=== PATIENT | female | born 1990 | race Two or more races ===

== ENCOUNTER 2020-09-09 12:20 | Outpatient (REF) | payer OTHER, SELFPAY ==
[2020-09-09 12:58] LABS: MANUAL DIFF FLAG NO
[2020-09-09 13:02] LABS: Basophils Absolute Auto 0.1 X10*3/uL (0.0-0.2); Basophils Percent Auto 1.2 % (0-2); Eosinophils Absolute Auto 0.3 X10*3/uL (0.0-0.4); Eosinophils Percent Auto 4.1 % (0-4); Hematocrit 38.8 % (37-47); Hemoglobin 12.4 g/dl (12.0-16.0); Imm Gran Abs Auto 0.02 X10*3/uL (0.00-0.03); Imm Gran Pct Auto 0.3 % (0.0-0.4); Lymphocytes Percent Auto 30.2 % (20-40); Mean Corpuscular Hemoglobin 26.7 pg (27.0-33.0); Mean Corpuscular Volume 83.4 fL (80-98); Mean Platelet Volume 10.6 fL (9.4-12.3); Monocytes Absolute Auto 0.6 X10*3/uL (0.1-1.2); Monocytes Percent Auto 8.4 % (2-11); Neutrophils Absolute Auto 3.8 X10*3/uL (2.0-8.3); Neutrophils Percent Auto 55.8 % (45-73); Platelet Count 309 X10*3/uL (160-400); Red Blood Count 4.65 X10*6/uL (4.20-5.50); Red Cell Distribution Width 13.2 % (11.0-16.0); White Blood Count 6.8 X10*3/uL (4.8-10.8)
[2020-09-09 13:22] LABS: Iron 26 mcg/dL (30-160); Percent Iron Saturation 8 % (15-50); Total Iron Binding Capacity 344 mcg/dL (228-428); Unsaturated Iron Binding 318 ug/dL
[2020-09-09 13:45] LABS: Ferritin 6 ng/mL (10-122)
== END 2020-09-09 12:21 | disposition home or self-care (01) ==
LOC: HO.LAB 12:20
PROVIDERS: Visit Provider Internal Medicine
DX: D50.9 Iron deficiency anemia, unspecified (principal)
CPT/HCPCS: 36415; 82728; 83540; 85025

== ENCOUNTER 2020-09-24 15:27 | Outpatient (REF) | payer OTHER, SELFPAY | END 2020-09-24 15:28 | disposition home or self-care (01) | LOC: HO.LAB 15:27 | PROVIDERS: Visit Provider Internal Medicine | DX: Z20.828 Contact with and (suspected) exposure to other viral communicable diseases (principal) | CPT/HCPCS: 36415; C9803; U0003 ==

== ENCOUNTER 2020-12-17 15:16 | Outpatient (REF) | payer OTHER, SELFPAY ==
[2020-12-18 11:56] LABS: BV Int Neg Control Negative (Negative); BV Int Pos Control Positive (Positive)
== END 2020-12-17 15:17 | disposition home or self-care (01) ==
LOC: HO.LAB 15:16
PROVIDERS: PCP Internal Medicine; Visit Provider Advanced Practice Midwife
DX: N89.8 Other specified noninflammatory disorders of vagina (principal)
CPT/HCPCS: 87480; 87510; 87660

== ENCOUNTER → 2020-12-17 15:24 | Outpatient (BNVA) | payer OTHER, SELFPAY | PROVIDERS: PCP Internal Medicine; Visit Provider Advanced Practice Midwife | DX: Z01.419 Encounter for gynecological examination (general) (routine) without abnormal findings (principal); N89.8 Other specified noninflammatory disorders of vagina | CPT/HCPCS: 81003 ==

== ENCOUNTER 2020-12-18 08:24 | Outpatient (REF) | payer OTHER, SELFPAY ==
[2020-12-18 09:12] LABS: MANUAL DIFF FLAG NO
[2020-12-18 09:16] LABS: Basophils Absolute Auto 0.1 X10*3/uL (0.0-0.2); Basophils Percent Auto 1.2 % (0-2); Eosinophils Absolute Auto 0.3 X10*3/uL (0.0-0.4); Hematocrit 40.4 % (37-47); Hemoglobin 12.5 g/dl (12.0-16.0); Imm Gran Abs Auto 0.02 X10*3/uL (0.00-0.03); Imm Gran Pct Auto 0.3 % (0.0-0.4); Lymphocytes Absolute Auto 2.4 X10*3/uL (1.2-4.9); Lymphocytes Percent Auto 33.1 % (20-40); Mean Corpuscular HGB Conc 30.9 g/dl (31.0-35.0); Mean Corpuscular Hemoglobin 25.3 pg (27.0-33.0); Mean Corpuscular Volume 81.8 fL (80-98); Mean Platelet Volume 10.5 fL (9.4-12.3); Monocytes Absolute Auto 0.7 X10*3/uL (0.1-1.2); Monocytes Percent Auto 9.1 % (2-11); Neutrophils Absolute Auto 3.8 X10*3/uL (2.0-8.3); Neutrophils Percent Auto 52.3 % (45-73); Platelet Count 378 X10*3/uL (160-400); Red Blood Count 4.94 X10*6/uL (4.20-5.50); Red Cell Distribution Width 13.2 % (11.0-16.0); White Blood Count 7.2 X10*3/uL (4.8-10.8)
[2020-12-18 09:48] LABS: Alanine Aminotransferase 16 U/L (0-31); Albumin Level 4.4 g/dL (3.5-5.0); Alkaline Phosphatase 63 U/L (39-117); Anion Gap 10 (12-20); Aspartate Amino Transferase 16 U/L (5-31); Bilirubin Total 0.9 mg/dL (0.0-1.0); Blood Urea Nitrogen 16 mg/dL (9-16); Calcium 9.5 mg/dL (8.4-10.2); Carbon Dioxide 28 mmol/L (22-29); Chloride 105 mmol/L (96-108); Estimated Glomerular Filt Rate > 60; Glucose Fasting 92 mg/dL (60-99); Potassium 4.8 mmol/L (3.3-5.1); Sodium 138 mmol/L (135-145); Total Protein 7.4 g/dL (6.5-8.0)
[2020-12-18 09:57] LABS: Thyroid Stimulating Hormone 1.31 uIU/mL (0.32-4.0)
[2020-12-23 08:32] LABS: Vitamin D 25-OH, D2 <4 ng/mL; Vitamin D 25-OH, D3 21 ng/mL; Vitamin D 25-OH, Total 21 ng/mL (30-100)
== END 2020-12-18 08:25 | disposition home or self-care (01) ==
LOC: HO.LAB 08:24
PROVIDERS: PCP Internal Medicine; Visit Provider Internal Medicine
DX: D64.9 Anemia, unspecified (principal); R53.82 Chronic fatigue, unspecified; E55.9 Vitamin D deficiency, unspecified
CPT/HCPCS: 36415; 80053; 82306; 84443; 85025

== ENCOUNTER 2021-01-07 07:50 | Outpatient (REF) | payer OTHER, SELFPAY ==
--- NOTE | ~2021-01-07 | XR_ITS ---
EXAMINATION: XR LUMBOSACRAL SPINE CLINICAL INFORMATION: M25.50 - Pain in unspecified joint COMPARISON: 04/06/2020 TECHNIQUE: AP and lateral views of the lumbar spine and lateral view of the lumbosacral junction. FINDINGS: The vertebral bodies and posterior elements are normal. The disc spaces are preserved and the vertebral alignment is normal. The paraspinal soft tissues are normal. XR/XR lumbar spine 2-3V IMPRESSION: Normal lumbar spine radiographs.
[2021-01-07 09:46] LABS: Thyroid Stimulating Hormone 1.46 uIU/mL (0.32-4.0)
[2021-01-11 17:41] LABS: Vitamin D 25-OH, D2 <4 ng/mL; Vitamin D 25-OH, D3 23 ng/mL; Vitamin D 25-OH, Total 23 ng/mL (30-100)
[2021-01-12 14:28] LABS: Anti Nuclear Antibody Screen NEGATIVE (NEGATIVE)
== END 2021-01-07 07:51 | disposition home or self-care (01) ==
LOC: HO.LAB 07:50
PROVIDERS: PCP Internal Medicine; Referring Provider Internal Medicine; Visit Provider Student in an Organized Health Care Education/Training Program
DX: M25.50 Pain in unspecified joint (principal)
CPT/HCPCS: 36415; 72100; 82306; 84443; 86038; 86039

== ENCOUNTER 2021-02-16 15:11 | Outpatient (REF) | payer OTHER, SELFPAY ==
[2021-02-17 08:43] LABS: BV Int Neg Control Negative (Negative); BV Int Pos Control Positive (Positive)
[2021-02-17 09:09] LABS: CT PCR NOT DETECTED (Not Detect.); NG PCR NOT DETECTED (Not Detect.)
== END 2021-02-16 15:12 | disposition home or self-care (01) ==
LOC: HO.LAB 15:11
PROVIDERS: PCP Internal Medicine; Visit Provider Obstetrics & Gynecology
DX: R35.0 Frequency of micturition (principal); N76.0 Acute vaginitis; B96.89 Other specified bacterial agents as the cause of diseases classified elsewhere
CPT/HCPCS: 81003; 87086; 87480; 87491; 87510; 87591; 87660

== ENCOUNTER 2021-11-08 07:49 | Outpatient (REF) | payer OTHER, SELFPAY ==
[2021-11-08 08:15] LABS: MANUAL DIFF FLAG NO
[2021-11-08 08:25] LABS: Basophils Absolute Auto 0.1 X10*3/uL (0.0-0.2); Basophils Percent Auto 0.8 % (0-2); Eosinophils Absolute Auto 0.2 X10*3/uL (0.0-0.4); Hematocrit 36.4 % (37.0-47.0); Hemoglobin 11.4 g/dl (12.0-16.0); Imm Gran Abs Auto 0.02 X10*3/uL (0.00-0.03); Imm Gran Pct Auto 0.3 % (0.0-0.4); Lymphocytes Absolute Auto 2.3 X10*3/uL (1.2-4.9); Lymphocytes Percent Auto 35.4 % (20-40); Mean Corpuscular HGB Conc 31.3 g/dl (31.0-35.0); Mean Corpuscular Hemoglobin 24.1 pg (27.0-33.0); Monocytes Absolute Auto 0.7 X10*3/uL (0.1-1.2); Monocytes Percent Auto 10.8 % (2-11); Neutrophils Absolute Auto 3.2 x10*3/uL (2.0-8.3); Neutrophils Percent Auto 49.7 % (45-73); Platelet Count 337 X10*3/uL (160-400); Red Blood Count 4.73 X10*6/uL (4.20-5.50); Red Cell Distribution Width 14.8 % (11.0-16.0); White Blood Count 6.4 X10*3/uL (4.8-10.8)
[2021-11-08 08:35] LABS: Estimated Average Glucose 94 mg/dL; Hemoglobin A1c % 4.9 %
[2021-11-08 08:41] LABS: Alanine Aminotransferase 9 U/L (0-31); Albumin Level 4.2 g/dL (3.5-5.0); Alkaline Phosphatase 62 U/L (39-117); Anion Gap 11 (12-20); Aspartate Amino Transferase 13 U/L (5-31); Bilirubin Total 0.3 mg/dL (0.0-1.0); Blood Urea Nitrogen 14 mg/dL (9-16); Calcium 9.2 mg/dL (8.4-10.2); Carbon Dioxide 25 mmol/L (22-29); Chloride 107 mmol/L (96-108); Cholesterol 171 mg/dL; Estimated Glomerular Filt Rate > 60; Glucose Fasting 101 mg/dL (60-99); HDL Cholesterol 58 mg/dL; LDL Cholesterol Calculated 103 mg/dl; Potassium 4.1 mmol/L (3.3-5.1); Sodium 139 mmol/L (135-145); Total Protein 7.1 g/dL (6.5-8.0); Triglycerides 52 mg/dL
== END 2021-11-08 07:50 | disposition home or self-care (01) ==
LOC: HO.LAB 07:49
PROVIDERS: PCP Internal Medicine; Visit Provider Nurse Practitioner Acute Care
DX: G44.229 Chronic tension-type headache, not intractable (principal)
CPT/HCPCS: 36415; 80053; 80061; 83036; 84443; 85025

== ENCOUNTER 2022-01-13 16:00 | Outpatient (RCR) | payer OTHER, SELFPAY | END 2022-01-18 10:52 | disposition home or self-care (01) | LOC: HO.PT 16:00 | PROVIDERS: PCP Internal Medicine; Visit Provider Nurse Practitioner Acute Care | DX: G44.229 Chronic tension-type headache, not intractable (principal) | CPT/HCPCS: 97014; 97110; 97140; 97161; 97530 ==

== ENCOUNTER 2022-02-21 07:26 | Outpatient (REF) | payer OTHER, SELFPAY ==
--- NOTE | ~2022-02-21 | XR_ITS ---
EXAMINATION: XR HIP, LEFT XR HIP, RIGHT CLINICAL INFORMATION: Pain COMPARISON: None TECHNIQUE: 2 views of each hip FINDINGS: Left hip: No fracture or dislocation. The hip is well aligned. Joint spaces maintained. The visualized pelvis is intact. Right hip: No fracture or dislocation. The hip is well aligned. Joint spaces maintained. The visualized pelvis is intact. XR/XR hip LT min 2V IMPRESSION: Normal appearance of both hips.
--- NOTE | ~2022-02-21 | XR_ITS ---
EXAMINATION: XR HIP, LEFT XR HIP, RIGHT CLINICAL INFORMATION: Pain COMPARISON: None TECHNIQUE: 2 views of each hip FINDINGS: Left hip: No fracture or dislocation. The hip is well aligned. Joint spaces maintained. The visualized pelvis is intact. Right hip: No fracture or dislocation. The hip is well aligned. Joint spaces maintained. The visualized pelvis is intact. XR/XR hip RT min 2V IMPRESSION: Normal appearance of both hips.
--- NOTE | ~2022-02-21 | XR_ITS ---
EXAMINATION: XR LUMBOSACRAL SPINE CLINICAL INFORMATION: Lower back pain COMPARISON: 01/07/2021 TECHNIQUE: Three views of the lumbosacral spine. FINDINGS: The vertebral bodies and posterior elements are normal. The disc spaces are preserved and the vertebral alignment is normal. The sacroiliac joints are symmetric. The sacrum is intact. Normal bowel gas pattern. The paraspinal soft tissues are normal. XR/XR lumbar spine 2-3V IMPRESSION: Normal appearance of the lumbar spine.
== END 2022-02-21 07:27 | disposition home or self-care (01) ==
LOC: HO.XRAY 07:26
PROVIDERS: PCP Internal Medicine; Visit Provider Internal Medicine
DX: M54.50 Low back pain, unspecified (principal); M25.551 Pain in right hip; M25.552 Pain in left hip
CPT/HCPCS: 72100; 73502

== ENCOUNTER 2022-03-15 07:43 | Outpatient (REF) | payer OTHER, SELFPAY ==
--- NOTE | ~2022-03-15 | XR_ITS ---
EXAMINATION: XR CHEST CLINICAL INFORMATION: R06.00 - Dyspnea, unspecified COMPARISON: Chest radiographs 04/06/2020 TECHNIQUE: 2 views of the chest were obtained. FINDINGS: Lungs are clear. There is no pneumothorax, pleural reaction, airspace consolidation, groundglass opacity. Heart is normal in size. The costophrenic sulci are clear. The hilar and mediastinal contours and visualized bony structures are unremarkable. XR/XR chest 2V IMPRESSION: Unremarkable examination.
--- NOTE | 2022-03-15 07:48 | ECG_ITS ---
Test Reason : cp Blood Pressure : / mmHG Vent. Rate : 082 BPM Atrial Rate : 082 BPM P-R Int : 128 ms QRS Dur : 084 ms QT Int : 400 ms P-R-T Axes : 077 064 039 degrees QTc Int : 467 ms Normal sinus rhythm Normal ECG When compared with ECG of 18-OCT-2007 23:09, No significant change was found Referred By: Rosalie Yoder Electronically Signed By:JUAN NUNN
== END 2022-03-15 07:44 | disposition home or self-care (01) ==
LOC: HO.XRAY 07:43
PROVIDERS: PCP Internal Medicine; Visit Provider Internal Medicine
DX: R07.9 Chest pain, unspecified (principal); R06.00 Dyspnea, unspecified
CPT/HCPCS: 71046; 93005

== ENCOUNTER 2022-03-25 08:07 | Outpatient (REF) | payer OTHER, SELFPAY ==
[2022-03-25 08:49] LABS: COVID-19 Test Negative (Negative); IDNOW Serial# 16C4AD1C
== END 2022-03-25 08:08 | disposition home or self-care (01) ==
LOC: HO.LAB 08:07
PROVIDERS: PCP Internal Medicine; Visit Provider Internal Medicine
DX: Z20.822 Contact with and (suspected) exposure to COVID-19 (principal)
CPT/HCPCS: 87635; C9803

== ENCOUNTER 2022-03-29 13:40 | Outpatient (REF) | payer OTHER, SELFPAY ==
--- NOTE | ~2022-03-29 | XR_ITS ---
EXAMINATION: XR SINUSES CLINICAL INFORMATION: J32.9 - Chronic sinusitis, unspecified. Patient notes sinus pressure, congestion, headaches. COMPARISON: Chest radiographs 03/15/2022 TECHNIQUE: 4 views of the sinuses were obtained. FINDINGS: There is mild smooth mucosal thickening bilateral inferior lateral maxillary sinuses. No visible polypoid mass. The remainder the sinuses are clear. There are no air-fluid levels. No bony thickening or sclerosis or visible bony destructive process. The nasopharynx and adenoids contours are unremarkable on lateral view. XR/XR sinus min 3V IMPRESSION: -Smooth mild bilateral mucosal thickening inferior lateral maxillary sinuses. -Remainder of sinuses are clear. -No air-fluid levels.
== END 2022-03-29 13:41 | disposition home or self-care (01) ==
LOC: HO.XRAY 13:40
PROVIDERS: PCP Internal Medicine; Visit Provider Internal Medicine
DX: J32.9 Chronic sinusitis, unspecified (principal)
CPT/HCPCS: 70220

== ENCOUNTER 2022-09-24 09:29 | Outpatient (REF) | payer OTHER, SELFPAY ==
[2022-09-24 09:54] LABS: MANUAL DIFF FLAG NO
[2022-09-24 10:01] LABS: Basophils Absolute Auto 0.1 X10*3/uL (0.0-0.2); Basophils Percent Auto 0.8 % (0-2); Eosinophils Absolute Auto 0.1 X10*3/uL (0.0-0.4); Eosinophils Percent Auto 2.1 % (0-4); Hematocrit 44.6 % (37.0-47.0); Imm Gran Abs Auto 0.04 X10*3/uL (0.00-0.03); Imm Gran Pct Auto 0.6 % (0.0-0.4); Lymphocytes Absolute Auto 1.9 X10*3/uL (1.2-4.9); Lymphocytes Percent Auto 29.8 % (20-40); Mean Corpuscular HGB Conc 33.6 g/dl (31.0-35.0); Mean Corpuscular Hemoglobin 29.8 pg (27.0-33.0); Mean Corpuscular Volume 88.5 fL (80.0-98.0); Mean Platelet Volume 9.8 fL (9.4-12.3); Monocytes Absolute Auto 0.6 X10*3/uL (0.1-1.2); Monocytes Percent Auto 9.2 % (2-11); Neutrophils Absolute Auto 3.6 x10*3/uL (2.0-8.3); Neutrophils Percent Auto 57.5 % (45-73); Platelet Count 298 X10*3/uL (160-400); Red Blood Count 5.04 X10*6/uL (4.20-5.50); Red Cell Distribution Width 11.9 % (11.0-16.0); White Blood Count 6.3 X10*3/uL (4.8-10.8)
[2022-09-24 10:34] LABS: Alanine Aminotransferase 20 U/L (0-31); Albumin Level 4.2 g/dL (3.5-5.0); Alkaline Phosphatase 63 U/L (39-117); Anion Gap 10 (12-20); Aspartate Amino Transferase 18 U/L (5-31); Bilirubin Total 0.5 mg/dL (0.0-1.0); Blood Urea Nitrogen 13 mg/dL (9-16); Calcium 9.7 mg/dL (8.4-10.2); Carbon Dioxide 26 mmol/L (22-29); Chloride 110 mmol/L (96-108); Cholesterol 161 mg/dL; Estimated Glomerular Filt Rate 55; Glucose Fasting 97 mg/dL (60-99); HDL Cholesterol 48 mg/dL; Iron 104 mcg/dL (30-160); LDL Cholesterol Calculated 103 mg/dl; Percent Iron Saturation 41 % (15-50); Potassium 4.3 mmol/L (3.3-5.1); Sodium 142 mmol/L (135-145); Total Iron Binding Capacity 253 mcg/dL (228-428); Triglycerides 52 mg/dL; Unsaturated Iron Binding 149 ug/dL
[2022-09-24 10:50] LABS: Vitamin D 25-OH Total 52.8 ng/mL (>30)
== END 2022-09-24 09:30 | disposition home or self-care (01) ==
LOC: HO.LAB 09:29
PROVIDERS: Visit Provider Internal Medicine
DX: Z00.00 Encounter for general adult medical examination without abnormal findings (principal); E55.9 Vitamin D deficiency, unspecified; D64.9 Anemia, unspecified; E78.5 Hyperlipidemia, unspecified
CPT/HCPCS: 36415; 80053; 80061; 82306; 83540; 85025

== ENCOUNTER 2022-10-03 11:00 | Outpatient (RCR) | payer OTHER, SELFPAY ==
--- NOTE | 2022-02-24 18:27 | MHC.PT.EP ---
[facility] [place] [facility] [place] Office [place] Office [address] Tawana Jack [address] [phone] F: [phone] F: [phone] F: [phone] F: [phone] Physical Therapy Plan of Care Date of Evaluation: Date of Surgery: N/A Diagnosis: Assessment: pt presents to physical therapy with pain, decreased range of motion, decreased strength, impaired functional mobility, impaired postural awareness, and gait deviations. pt is a good candidate for skilled PT due to age, potential remediation of impairments, typical disease/condition progression and prognosis, comorbidities, and motivation. pt would benefit from tailored strengthening and stretching exercise program, functional training, gait training, postural re-training, neuromuscular re-education, modalities as needed for pain, equipment safety demonstration. Frequency and Duration: The patient will be seen 1x/wk for 4 wks Short Term Goals: pt will be I w/ HEP to promote self-management of condition. pt will demo proper sitting posture w/ lumbar roll to promote neutral spine w/ seated ADLs. Landscape Foreman Goals: pt will report a statistically significant improvement in self-reported outcome measure, Casimiro, to promote return to PLOF. pt will demo proper lifting mechanics x5 reps of 25# from floor to chest height to promote return to airplane fueler. Treatment Plan: Modalities to reduce pain, spasms and effusion. Manual therapy to restore motion and function. Therapeutic exercise to improve strength and flexibility. Neuromuscular re-education for posture and balance. Therapeutic activities to return to functional activities of daily living. Electronically signed by: Paula Leiva PT, DPT Please sign and return to therapist. Thank you for your referral.
--- NOTE | 2022-10-18 14:05 | MHC.PT.DC ---
[facility] [place] Office [place] Office [place] Office [address] Tawana Jack [address] [phone] F: [phone] F: [phone] F: [phone] F: [phone] Physical Therapy Discharge Report Diagnosis: low back pain, unspecified Date of Surgery: N/A Date of Evaluation: 02/24/22 Date of Discharge: 10/18/22 Treatments to Date: 22 Cancellations to Date: 5 No Shows to Date: 0 Discharge Status: Improved Function Independent with HEP Discharge Summary: The patient went through periods of adequate symptom management and flare-ups. She was educated extensively on how to train whether she is feeling minimal pain or when her pain is exacerbated. She has been given several home exercise programs and educated on modalities such as heat. The patient was educated on potential diet and lifestyle modifications to reduce inflammation and promote stability. She has reached her insurance maximum for this plan of care and is being discharged. Electronically signed by: Paula Leiva PT, DPT Please sign and return to therapist. Thank you for your referral.
== END 2022-10-18 14:06 | disposition home or self-care (01) ==
LOC: HO.PT 11:00
PROVIDERS: PCP Internal Medicine; Visit Provider Internal Medicine
DX: M54.50 Low back pain, unspecified (principal)
CPT/HCPCS: 97110; 97140; 97162; 97164; 97530

== ENCOUNTER → 2023-02-17 10:21 | Outpatient (BNVA) | payer OTHER, SELFPAY | PROVIDERS: PCP Internal Medicine; Visit Provider Student in an Organized Health Care Education/Training Program ==

== ENCOUNTER 2023-06-22 13:57 | Outpatient (AMB) | payer OTHER, SELFPAY ==
--- NOTE | 2023-06-22 14:15 | MHC.PC.OV ---
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 Allergies sertraline Adverse Reaction (Intermediate, Verified 06/22/23 14:17) nausea, loss of appetite Tobacco use date assessed: 06/22/23 Dental Screening Dental Screen Date: 06/22/23 Did you have a dental visit in the last 12 months?: Yes Did you have a dental problem in the last 6 months where you did not have access to dental care?: No Was dental information given to patient?: Patient has dentist HPI HPI Comments History of Present Illness Details This is a 31-year-old female with severe major depression, anxiety, allergic sinusitis and low vitamin-D that comes today for follow-up on her conditions. Patient Dr. Lowery presents today for problem visit. Patient continues to report ongoing polyarthralgia. Review of the notes patient has been seen by rheumatology and was diagnosed with fibromyalgia. Patient was encouraged to consider adding low-impact exercises such as walking, swimming, aquatherapy, yoga, stretching. Advised patient that she should start activity slowly and increase as tolerated. or consider switching her fluoxetine to duloxetine. Patient also reports she is having urinary frequency, dysuria. Denies fever, chills and flank pain. [facility] Medical History (Updated 06/22/23 @ 14:36 by JACK Montgomery) Lumbar pain Right hip pain Left hip pain Severe major depression without psychotic features Vaginal irritation Hypovitaminosis D Anemia Allergic sinusitis Chronic fatigue Anxiety Surgical History No pertinent past surgical history Family History Father Diabetes Hypertension CVD (cardiovascular disease) Stroke Mother No problems noted. 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 How often do you have a drink containing alcohol?: Monthly or less 2. How many drinks containing alcohol do you have on a typical day when you are drinking?: 1 or 2 3. How often do you have six or more drinks on one occasion?: Never Total Score: 1 Score Reviewed/Action Taken: Yes JOLIE-7 AMB Questionnaire JOLIE-7 Date JOLIE - 7 assessed: 09/29/22 Source: Developed by Drs. Carlos Ayala, Hellen Burrell, Omar Frankel and colleagues, with an educational bernice from [employer]. Review of Systems Const Denies chills, Denies fatigue, Denies fever(s) and Denies poor appetite Eyes Denies no additional complaints ENT Reports Normal hearing present Card Denies chest pain, Denies syncope, Denies rapid heart rate and Denies dyspnea Resp Denies cough and Denies dyspnea GI Denies change in stool character, Denies constipation, Denies diarrhea, Denies nausea and Denies vomiting Denies urinary frequency, Reports dysuria, Denies urinary hesitancy and Reports urinary urgency Neuro Reports Normal hearing present, Denies confusion and Denies syncope Psych Denies confusion Endo Denies fatigue Physical exam (Primary Care) Vital Signs: Last Vital Signs Pulse 85 06/22/23 14:16 BP 126/82 06/22/23 14:16 Pulse Ox 99 06/22/23 14:16 Oxygen Delivery Method Room Air 06/22/23 14:16 BMI result Body Mass Index 23.0 Tobacco/Smoking Status: Tobacco use Status Tobacco use date assessed 06/22/23 06/22/23 14:20 Patient Tobacco Use Status Never used Tobacco 06/22/23 14:20 e-Cigarette/Vaping Use Never Used 06/22/23 14:20 Thrive Assessment: Date of Thrive Assessment Date Thrive assessed 09/29/22 06/22/23 14:20 Const General: No confusion Orientation/consciousness: No confusion HENMT Head: Yes normocephalic and Yes atraumatic Eyes Conjunctivae: conjunctivae normal Chest Chest palpation & inspection: normal inspection of the chest Resp Effort & Inspection: normal respiratory effort Auscultation: clear to auscultation bilaterally, no crackles, no rhonchi and no wheezes Cardio Rate: regular rate Rhythm: regular rhythm Heart sounds: S1 normal heart sound present and S2 normal heart sound present GI Inspection: Yes normal to inspection Neuro General: No confusion Cranial nerves: Yes Normal hearing present Extrem General: No edema Assessment and Plan Assessment & Plan (1) Urinary frequency: Code(s): R35.0 - Frequency of micturition Plan: Urinalysis with reflex culture ordered. Given patient is experiencing dysuria and urinary frequency will cover with Macrobid q.12 x5 days will urine is pending. Patient agreeable with plan of care. (2) Fibromyalgia, primary: Code(s): M79.7 - Fibromyalgia Plan: Patient referred to Pain Management for further treatment recommendations for ongoing polyarthralgia. Plan Keep scheduled physical exam in September with PCP or follow-up sooner if needed. Orders: Orders Comprehensive [place]. Panel Fast 06/22/23 R35.0 - Frequency of micturition UA CC w/rflx Micro + Cult 06/22/23 R35.0 - Frequency of micturition Complete Blood Count no Diff 06/22/23 Z13.0 - Encounter for screening for diseases of the blood and blood-forming organs and certain disorders involving the immune mechanism Referrals Pain Management Referral M79.7 - Fibromyalgia Medications: New nitrofurantoin monohyd/m-cryst 100 mg (Macrobid) must administer with a meal/food 100 mg PO Q12H 5 days 10 caps 0RF Coding Level of Care Code Est Pt Level 3 (08123) Diagnoses Urinary frequency R35.0 Fibromyalgia, primary M79.7
[2023-06-22 14:16] VITALS: BP 126/82; PULSE 85; O2SAT 99; BMI 23.0
== END 2023-06-22 14:51 | disposition home or self-care (01) ==
PROVIDERS: PCP Internal Medicine; Visit Provider Nurse Practitioner Family
DX: R35.0 Frequency of micturition (principal); M79.7 Fibromyalgia
CPT/HCPCS: 99213

== ENCOUNTER 2023-06-22 14:44 | Outpatient (REF) | payer OTHER, SELFPAY | END 2023-06-22 14:45 | disposition home or self-care (01) | LOC: HO.LAB 14:44 | PROVIDERS: PCP Internal Medicine; Visit Provider Nurse Practitioner Family | DX: Z13.0 Encounter for screening for diseases of the blood and blood-forming organs and certain disorders involving the immune mechanism (principal); R35.0 Frequency of micturition | CPT/HCPCS: 36415; 81001; 85027; 87086 ==

== ENCOUNTER 2023-07-05 15:33 | Outpatient (AMB) | payer OTHER, SELFPAY ==
--- NOTE | 2023-07-05 15:47 | A.OFFVIS_ITS ---
Intake Vital Signs 07/05/23 15:59 Height 5 ft 3 in Weight 130 lb BMI 23.0 BP 139/78 Blood Pressure Location Lt brachial Position Sitting Respiration 16 Pulse 85 Pulse Source Pulse Oximeter Pulse Oximetry (%) 100 Oxygen Delivery Method Room Air Intake Visit Reasons: Fibromyalgia Allergies sertraline Adverse Reaction (Intermediate, Verified 07/05/23 15:48) nausea, loss of appetite HPI HPI Comments History of Present Illness Details Vale is a very pleasant 32-year-old female who presents to the office today for evaluation management of her chronic all-over pain. Patient reports that she has pain in the neck shoulders arms back hips knees legs feet. She is previously seen by Rheumatology and diagnosed with fibromyalgia. She is unable to pinpoint a specific area that is the most gela thersome pain. She states that she just has pain all over, that waxes and wanes and most bothersome will change area all the time. Patient currently only taking ibuprofen for the pain with minimal relief. She recently completed physical therapy for her neck and hip which helped a little bit. She does report using a tens unit at physical therapy with some relief. She has never tried chiropractor, acupuncture, massage or injections. She states rheumatology told her that medication would not help her pain. She currently is only taking clonazepam, hydroxyzine, Topamax and vitamin-D. She is on Topamax for migraines, she is a former patient of Neurology here at [facility]. She is requesting referral to [facility] neurology as she does not feel like her concerns are being addressed with current neurologist. She states she will run out of [employer] within a month. Patient does try to live a active and healthy lifestyle. She works out, she is looking into [facility] therapy but states sure it is not willing to cover at this time. She also is hesitant about taking medications as she does not like to put ?chemicals and my body . In terms of muscle damage condition is described as aching, tingling, exhausting. Pain is negatively impacting patient's enjoyment of life, general activity, mood, normal work correctional activities, sleep, walking, housework and physical work. [facility] Medical History (Updated 07/05/23 @ 16:45 by Maritza Sheridan, FILE SYSTEM INSTALLER, BARGE LOADER) Lumbar pain Right hip pain Left hip pain Severe major depression without psychotic features Vaginal irritation Hypovitaminosis D Anemia Allergic sinusitis Chronic fatigue Anxiety Surgical History No pertinent past surgical history Family History Father Diabetes Hypertension CVD (cardiovascular disease) Stroke Mother No problems noted. 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 Answers questions appropriately. Fully engaged in examination. Skin: warm, dry, intact HEENT: Normocephalic. Hearing intact. Cardiac: External chest normal in appearance. Respiratory: No cough, audible wheezing or stridor. Abdomen: without gross distension. MS: No obvious swelling or deformities. Able to transition from sit to stand unassisted. Ambulates with bilaterally normal heel strike and toe off CS: decreased ROM with right and left lateral flexion nontender to palpation over midline cervical vertebrae or paraspinal muscles Tender to palpation over right lower trapezius with palpable tight bands Neurological: Oriented to person, place, time and situation. Thought process intact. No gait abnormalities appreciated. Psychiatric: Appropriate mood and affect. Good judgment and insight. Assessment & Plan Assessment & Plan (1) Cervical spondylosis: Code(s): M47.812 - Spondylosis without myelopathy or radiculopathy, cervical region (2) Fibromyalgia, primary: Code(s): M79.7 - Fibromyalgia (3) Myofascial muscle pain: Code(s): M79.18 - Myalgia, other site Plan Vale presented to the office today for evaluation management of her chronic diffuse joint pain. Patient reports that she has been evaluated by Rheumatology in the past, she is aware of current management strategies for fibromyalgia including sleep hygiene, diet, exercise and is currently looking for aquatherapy. XR CS ordered for further evaluation. Lidocaine patches 5% apply to most painful area on for 12 hours off for 12 hours. Cyclobenzaprine 5 mg p.o. b.i.d. patient instructed on use. Will trial initially at bedtime to see how it is tolerated. Patient where not to drive while taking this medication. Refill of Topamax sent, referral placed for [facility] Neurology per patient request. Patient aware we will not continue prescribing Topamax, this is one time to get her until she is seen by Neurology. [employer] Tens unit ordered, pamphlet provided to patient with instructions on use. She will await a call to schedule delivery of the device. All questions and concerns were addressed during the visit today. Patient will follow-up in this office in 1 month for medication review, sooner if needed. Orders: Orders XR cervical spine w flex/ext Today M47.812 - Spondylosis without myelopathy or radiculopathy, cervical region Referrals Neurology Referral G43.909 - Migraine, unspecified, not intractable, without status migrainosus Medications: New lidocaine 5% leave on most painful area for up to 12 hrs 1 patch topical DAILY 30 ea 0RF topiramate 50 mg PO DAILY 30 tabs 1RF cyclobenzaprine 5 mg PO BID PRN 60 tabs 0RF muscle spasm Coding Level of Care Code New Pt Level 4 (06474) Diagnoses Cervical spondylosis M47.812 Fibromyalgia, primary M79.7 Myofascial muscle pain M79.18
[2023-07-05 15:59] VITALS: BP 139/78; PULSE 85; RESP 16; O2SAT 100; BMI 23.0
== END 2023-07-05 16:26 | disposition home or self-care (01) ==
PROVIDERS: PCP Internal Medicine; Visit Provider Registered Nurse Emergency
DX: M47.812 Spondylosis without myelopathy or radiculopathy, cervical region (principal); M79.7 Fibromyalgia
CPT/HCPCS: 99204

== ENCOUNTER → 2023-07-05 15:33 | Outpatient (BNVA) | payer OTHER, SELFPAY | PROVIDERS: PCP Internal Medicine; Visit Provider Registered Nurse Emergency ==

== ENCOUNTER 2023-08-08 16:07 | Outpatient (AMB) | payer OTHER, SELFPAY ==
[2023-08-08 16:14] VITALS: BP 137/72; PULSE 75; RESP 16; O2SAT 100; BMI 23.0
--- NOTE | 2023-08-08 16:14 | A.OFFVIS_ITS ---
Intake Vital Signs 08/08/23 16:14 Height 5 ft 3 in Weight 130 lb BMI 23.0 BP 137/72 Blood Pressure Location Lt brachial Position Sitting Respiration 16 Pulse 75 Pulse Source Pulse Oximeter Pulse Oximetry (%) 100 Oxygen Delivery Method Room Air Intake Visit Reasons: Fibromyalgia/Confirmed Allergies sertraline Adverse Reaction (Intermediate, Verified 08/08/23 16:13) nausea, loss of appetite HPI HPI Comments History of Present Illness Details Vale presents to the office today for follow up. She has been using the TENS unit with good effect. Not using it very often as she struggles to find the time and has some difficulty applying the leads to her upper back but does not good relief when she does use it. Lidocaine patches also noted to be difficult to apply so is not sure how effecti ve they are. She reports most days she is doing well with the occasional flare up. She did receive a call from [facility] [place], new patient appt pending. Prior: Vale is a very pleasant 32-year-old female who presents to the office today for evaluation management of her chronic all-over pain. Patient reports that she has pain in the neck shoulders arms back hips knees legs feet. She is previously seen by Rheumatology and diagnosed with fibromyalgia. She is unable to pinpoint a specific area that is the most bothersome pain. She states that she just has pain all over, that waxes and w anes and most bothersome will change area all the time. Patient currently only taking ibuprofen for the pain with minimal relief. She recently completed physical therapy for her neck and hip which helped a little bit. She does report using a tens unit at physical therapy with some relief. She has never tried chiropractor, acupuncture, massage or injections. She states rheumatology told her that medication would not help her pain. She currently is only taking clonazepam, hydroxyzine, Topamax and vitamin-D. She is on Topamax for migraines, she is a former patient of Neurology here at [facility]. She is requesting referral to [facility] neurology as she does not feel like her concerns are being addressed with current neurologist. She states she will run out of Topamax within a month. Patient does try to live a active and healthy lifestyle. She works out, she is looking into aqua therapy but states sure it is not willing to cover at this time. She also is hesitant about taking medications as she does not like to put ?chemicals and my body . In terms of muscle damage condition is described as aching, tingling, exhausting. Pain is negatively impacting patient's enjoyment of life, general activity, mood, normal work correctional activities, sleep, walking, housework and physical work. [facility] Medical History (Updated 07/05/23 @ 16:45 by Maritza Sheridan, ROLLED OATS MILL OPERATOR, LATHE OPERATOR CONTACT LENS) Lumbar pain Right hip pain Left hip pain Severe major depression without psychotic features Vaginal irritation Hypovitaminosis D Anemia Allergic sinusitis Chronic fatigue Anxiety Surgical History No pertinent past surgical history Family History Father Diabetes Hypertension CVD (cardiovascular disease) Stroke Mother No problems noted. 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 Answers questions appropriately. Fully engaged in examination. Skin: warm, dry, intact HEENT: Normocephalic. Hearing intact. Cardiac: External chest normal in appearance. Respiratory: No cough, audible wheezing or stridor. Abdomen: without gross distension. MS: No obvious swelling or deformities. Able to transition from sit to stand unassisted. Ambulates with bilaterally normal heel strike and toe off Neurological: Oriented to person, place, time and situation. Thought process intact. No gait abnormalities appreciated. Psychiatric: Appropriate mood and affect. Good judgment and insight. Assessment & Plan Assessment & Plan (1) Cervical spondylosis: Code(s): M47.812 - Spondylosis without myelopathy or radiculopathy, cervical region (2) Fibromyalgia, primary: Code(s): M79.7 - Fibromyalgia (3) Myofascial muscle pain: Code(s): M79.18 - Myalgia, other site Plan Vale presented to the office today for follow up. She is aware of current management strategies for fibromyalgia including sleep hygiene, diet, exercise and is currently looking for aquatherapy. She declines gabapentin or lyrica at this time, states she feels overall well just has some times when it acts up. C/W TENS unit as prescribed C/W lidocaine patches as needed Follow up with neurology as planned All questions and concerns were addressed during the visit today. Patient will follow-up in this office in 3 months, sooner if needed. Coding Level of Care Code Est Pt Level 4 (90740) Diagnoses Cervical spondylosis M47.812 Fibromyalgia, primary M79.7 Myofascial muscle pain M79.18
== END 2023-08-08 16:23 | disposition home or self-care (01) ==
PROVIDERS: PCP Internal Medicine; Visit Provider Registered Nurse Emergency
DX: M47.812 Spondylosis without myelopathy or radiculopathy, cervical region (principal); M79.18 Myalgia, other site
CPT/HCPCS: 99214

== ENCOUNTER → 2023-08-08 16:07 | Outpatient (BNVA) | payer OTHER, SELFPAY | PROVIDERS: PCP Internal Medicine; Visit Provider Registered Nurse Emergency ==

== ENCOUNTER 2023-10-04 10:02 | Outpatient (AMB) | payer OTHER, SELFPAY ==
--- NOTE | 2023-10-04 10:17 | A.OFFVIS_ITS ---
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 Doing well with concerns: started spotting-to light flow since 08/31/23-current, some mucus discharge and horrible odor . She reports always having irregular periods skipping at times, some facial acne. She tries to eat healthy and stays active with exercise. Currently is never been sexually active. She denies vaginal itching and irritation. Denies family history of breast, ovarian or colon cancer. Last pap smear 2017, negative. [facility] Medical History Lumbar pain Right hip pain Left hip pain Severe major depression without psychotic features Vaginal irritation Hypovitaminosis D Anemia Allergic sinusitis Chronic fatigue Anxiety Surgical History No pertinent past surgical history Family History Father Diabetes Hypertension CVD (cardiovascular disease) Stroke Mother No problems noted. 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/hazards: No Cognitive needs: No Hearing needs: No Vision needs: No Female Reproductive History Menstrual Age of Menarche: 12 Date of last menstrual period: 08/31/23 control method: none Total pregnancies: 0 Date of last pap smear: 05/23/18 (neg) Review of Systems Const All systems reviewed & are unremarkable except as noted in HPI and below Reports as per HPI Eyes Reports no additional complaints ENT Reports no additional complaints Card Reports no additional complaints Resp Reports no additional complaints GI Reports as per HPI and Reports no additional complaints Reports as per HPI Musc Reports no additional complaints Skin/Breast Reports as per HPI Neuro Reports no additional complaints Psych Reports no additional complaints Endo Reports no additional complaints Jeffrey/Lymph Reports no additional complaints Aller/Immun Reports no additional complaints Physical Exam Vital Signs: Last Vital Signs BP 130/68 10/04/23 10:19 BMI result Body Mass Index 23.4 Const General: cooperative, healthy appearing, no acute distress, well developed and alert Orientation/consciousness: patient oriented x3 HEENT Head: Yes normal to inspection Eyes General: appearance normal, both eyes and all related structures Neck Neck: Yes normal visual inspection Thyroid: Thyroid normal Chest Other: dark long areola hair Chest palpation & inspection: normal inspection of the chest and other (no puckering, dimpling, peau de orange, retraction, discharge, masses) Breast/axilla inspection: normal inspection of the breasts Breast/axilla palpation: normal palpation of the breasts Resp Effort & Inspection: normal respiratory effort GI Inspection: Yes normal to inspection Palpation (GI): Soft to palpation Rectal Exam - Female: deferred Other: Limited exam due to small introital opening. General: Yes bladder normal to palpation External Female Exam: normal external appearance and normal appearance of the urethra Speculum Exam - Vagina: normal appearance of the vagina, normal palpation, no rmal vaginal discharge and vaginal bleeding Speculum Exam - Cervix: normal appearance of the cervix and normal palpation Bimanual exam- vagina & uterus: normal bimanual exam, normal palpation, uterine size normal, bladder normal to palpation, normal palpation and non-tender Bimanual Exam- Adnexa, other: no masses OB/external & speculum: vaginal bleeding Skin General skin exam: no rashes or lesions noted Rashes: no rashes Neuro General: patient oriented x3 Cognition (Neuro): normal cognition Extrem General: Yes normal to inspection Psych Attitude: cooperative Thought process: Normal thought process present Assessment & Plan Assessment & Plan (1) Encounter for well woman exam with routine gynecological exam: Code(s): Z01.419 - Encounter for gynecological examination (general) (routine) without abnormal findings (2) Abnormal uterine bleeding (AUB): Code(s): N93.9 - Abnormal uterine and vaginal bleeding, unspecified (3) Acne: Code(s): L70.9 - Acne, unspecified Qualifiers: Acne type: unspecified acne Qualified Code(s): L70.9 - Acne, unspecified Plan Discussed: Current recommendations for pap smears per ASCCP guidelines. Breast awareness and periodic breast exams. Maintain a healthy lifestyle including a well balanced diet and routine exercise. Use condoms for STI and prevention. Workup for PCOS due to symptoms including labs and trans abdominal ultrasound. Advised to call if there is any heavy prolonged bleeding before her next appointment. Follow-up in 2 weeks after ultrasound and labs are complete for test results and plan of care, considering control measures in the future will be discussed in detail at next visit. All of her questions and concerns were addressed to the best of my ability. RTO in one year for annual carbonator examination. This note is constructed using voice recognition software. While every effort has been made to ensure accuracy, furniture cleaner errors may have been included. Orders: Orders Bacterial Vaginosis Panel Today L68.0 - Hirsutism, N92.6 - Irregular menstruation, unspecified, N93.9 - Abnormal uterine and vaginal bleeding, unspecified Pap Smear Today N93.9 - Abnormal uterine and vaginal bleeding, unspecified, Z01.419 - Encounter for gynecological examination (general) (routine) without abnormal findings US pelvic limited Today N93.9 - Abnormal uterine and vaginal bleeding, unspecified HCG Quantitative Today L68.0 - Hirsutism, N92.6 - Irregular menstruation, unspecified Thyroid Stimulating Hormone Today L68.0 - Hirsutism, N92.6 - Irregular menstruation, unspecified 17 Hydroxyprogesterone Today L68.0 - Hirsutism, N92.6 - Irregular menstruation, unspecified Prolactin Today L68.0 - Hirsutism, N92.6 - Irregular menstruation, unspecified CT NG by PCR Today L68.0 - Hirsutism, N92.6 - Irregular menstruation, unspecified, N93.9 - Abnormal uterine and vaginal bleeding, unspecified Testosterone, Free/Total Today L68.0 - Hirsutism, N92.6 - Irregular menstruation, unspecified DHEA Sulfate Today L68.0 - Hirsutism, N92.6 - Irregular menstruation, unspecified Complete Blood Count no Diff Today L68.0 - Hirsutism, N92.6 - Irregular menstruation, unspecified Coding Level of Care Code Est Pt Prev Care 18-39y(00914) Diagnoses Encounter for well woman exam with routine gynecological exam Z01.419 Abnormal uterine bleeding (AUB) N93.9 Acne, unspecified acne type L70.9 Acne type: unspecified acne
[2023-10-04 10:19] VITALS: BP 130/68; BMI 23.4
== END 2023-10-04 15:27 | disposition home or self-care (01) ==
PROVIDERS: PCP Internal Medicine; Visit Provider Advanced Practice Midwife
DX: Z01.419 Encounter for gynecological examination (general) (routine) without abnormal findings (principal); N93.9 Abnormal uterine and vaginal bleeding, unspecified; L70.9 Acne, unspecified
CPT/HCPCS: 99395

== ENCOUNTER 2023-10-04 10:02 | Outpatient (REF) | payer OTHER, SELFPAY ==
[2023-10-04 12:22] LABS: Hematocrit 38.5 % (37.0-47.0); Hemoglobin 12.4 g/dl (12.0-16.0); Mean Corpuscular HGB Conc 32.2 g/dl (31.0-35.0); Mean Corpuscular Volume 83.7 fL (80.0-98.0); Mean Platelet Volume 10.7 fL (9.4-12.3); Platelet Count 320 X10*3/uL (160-400); Red Cell Distribution Width 14.4 % (11.0-16.0); White Blood Count 7.6 X10*3/uL (4.8-10.8)
[2023-10-04 13:13] LABS: HCG Quantitative < 2 mIU/mL; Thyroid Stimulating Hormone 0.98 uIU/mL (0.32-4.0)
[2023-10-04 18:06] LABS: CT PCR NOT DETECTED (Not Detect.); NG PCR NOT DETECTED (Not Detect.)
[2023-10-05 09:53] LABS: BV Int Neg Control Negative (Negative); BV Int Pos Control Positive (Positive)
[2023-10-05 10:08] LABS: DHEA Sulfate 59 mcg/dL (19-237); Prolactin 13.5 ng/mL
[2023-10-08 15:28] LABS: Testosterone, Free 1.1 pg/mL (0.1-6.4); Testosterone, Total 22 ng/dL (2-45)
== END 2023-10-04 10:03 | disposition home or self-care (01) ==
LOC: HO.LAB 10:02
PROVIDERS: PCP Internal Medicine; Visit Provider Advanced Practice Midwife
DX: L68.0 Hirsutism (principal); N92.6 Irregular menstruation, unspecified; N93.9 Abnormal uterine and vaginal bleeding, unspecified; Z20.2 Contact with and (suspected) exposure to infections with a predominantly sexual mode of transmission; L70.9 Acne, unspecified
CPT/HCPCS: 0353U; 82627; 83498; 84146; 84402; 84403; 84443; 84702; 85027; 87480; 87510; 87660

== ENCOUNTER 2023-10-04 10:54 | Outpatient (REF) | payer OTHER, SELFPAY ==
[2023-10-07 04:49] LABS: HPV mRNA E6/E7 rflx Not Detected (Not Detected)
== END 2023-10-04 10:55 | disposition home or self-care (01) ==
LOC: HO.LNP 10:54
PROVIDERS: Visit Provider Advanced Practice Midwife
DX: Z01.419 Encounter for gynecological examination (general) (routine) without abnormal findings (principal); Z11.51 Encounter for screening for human papillomavirus (HPV); N93.9 Abnormal uterine and vaginal bleeding, unspecified
CPT/HCPCS: 87624; 88142

== ENCOUNTER 2023-10-10 14:26 | Outpatient (AMB) | payer OTHER, SELFPAY ==
[2023-10-10 14:37] VITALS: BP 120/80; BMI 23.4
--- NOTE | 2023-10-10 14:37 | A.OFFPC_ITS ---
Vital Signs 10/10/23 14:37 Height 5 ft 3 in Weight 132 lb BMI 23.4 BP 120/80 Blood Pressure Location Lt brachial Position Sitting Intake Visit Reasons: PE Intake Note: Patient here a physical exam Oxygen Equipment Aide Required: No Accompanied by: Self / Same As Patient Allergies sertraline Adverse Reaction (Intermediate, Verified 10/10/23 14:55) nausea, loss of appetite Medication List - Last Reconciled 10/10/23 by Rosalie Yoder MD betamethasone, augmented 0.05 % 1 appl topical BID nhaiymjsem-hqbgasplyezwl-lzyh 50-325-40 mg tabs PO cetirizine 10 mg PO DAILY PRN 90 days cholecalciferol (vitamin D3) 25 mcg PO DAILY 90 days clonazepam 1 mg PO BEDTIME PRN 30 days fluticasone propionate 50 mcg/actuation (Flonase Allergy Relief) 1 spray intranasal DAILY 30 days hydroxyzine HCl 25 mg PO BEDTIME PRN 30 days topiramate 50 mg PO DAILY 90 days Tobacco use date assessed: 10/10/23 Dental Screening Dental Screen Date: 10/10/23 Did you have a dental visit in the last 12 months?: Yes Did you have a dental problem in the last 6 months where you did not have access to dental care?: No Was dental information given to patient?: Patient has dentist HPI HPI Comments History of Present Illness Details This is a 32 year old female with mild major depression that comes for her physical exam. Last pap smear was this month and was negative. Will start bupropion for depression. Still has low back pain and goes to pain management. [facility] Medical History (Updated 10/10/23 @ 15:09 by Rosalie Yoder MD) Lumbar pain Right hip pain Left hip pain Severe major depression without psychotic features Vaginal irritation Hypovitaminosis D Anemia Allergic sinusitis Chronic fatigue Anxiety Surgical History No pertinent past surgical history Family History Father Diabetes Hypertension CVD (cardiovascular disease) Stroke Mother No problems noted. 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 1. Little interest or pleasure in doing things: nearly every day 2. Feeling down, depressed, or hopeless: more than half the days 3. Trouble falling or staying asleep, or sleeping too much: several days 4. Feeling tired or having little energy: nearly every day 5. Poor appetite or overeating: several days 6. Feeling bad about yourself - or that you are a failure or have let yourself or your family down: several days 7. Trouble concentrating on things, such as reading the newspaper or watching television: several days 8. Moving or speaking so slowly that other people could have noticed. Or the opposite - being so fidgety or restless that you have been moving around a lot more than usual: several days 9. Thoughts that you would be better off or of hurting yourself in some way: not at all Total score: 13 Depression Screening Interpretation: Positive Depression Screening Follow-up: Existing condition and Declines treatment Depression Screening Done: Yes 50612 - PHQ-9 Billing: Yes Source: Developed by Drs. Carlos Ayala, Hellen Burrell, Omar Frankel and colleagues, with an educational bernice from [employer]. Thrive Questionnaire Date Thrive assessed: 10/10/23 I am a: Patient What is your living situation today?: I have a steady place to live Within the past 12 months, did the food you bought not last and you didn't have the money to get more?: Never true Within the past 12 months, did you worry whether your food would run out before you got money to buy more?: Never true Do you have trouble paying for medicines?: No Do you have trouble getting transportation to medical appointments?: No Do you have trouble paying your heating and electricity bill?: No Do you have trouble taking care of your child, family member or friend?: No Do you have trouble with day-to-day activities such as bathing, preparing meals, shopping, managing finances, etc.?: No Are you currently unemployed and looking for a job?: No Are you interested in more education?: No Please select the resources that you would like help with: None Currently or been in a relationship where the following occur: no concerns reported THRIVE Score: 0 AUDIT C Alcohol Use Questionnaire (AUDIT-C) 1. How often do you have a drink containing alcohol?: Monthly or less 2. How many drinks containing alcohol do you have on a typical day when you are drinking?: 1 or 2 3. How often do you have six or more drinks on one occasion?: Never Total Score: 1 Score Reviewed/Action Taken: No JOLIE-7 AMB Questionnaire JOLIE-7 Date JOLIE - 7 assessed: 10/10/23 Feeling nervous, anxious, or on edge: 2 = More than half the days Not being able to stop or control worryin = Several days Worrying too much about different things: 3 = Nearly every day Trouble relaxin = Nearly every day Being so restless that it is hard to sit still: 1 = Several days Becoming easily annoyed or irritable: 3 = Nearly every day Feeling afraid as if something awful might happen: 0 = Not at all Total JOLIE-7 score (0-4 normal; 5-9 mild; 10-14 moderate; 15-21 severe): 13 Source: Developed by Drs. Carlos Ayala, Hellen Burrell, Omar Frankel and colleagues, with an educational bernice from [employer]. JOLIE-7 Assessment Billing JOLIE-7 Assessment Tool: JOLIE-7 Assessment 21093 Review of Systems Const All systems reviewed & are unremarkable except as noted in HPI and below Eyes Reports no additional complaints, Denies change in vision and Denies other visual disturbances Card Denies chest pain at rest, Denies chest pain with activity, Denies edema, Denies irregular heart rhythm, Denies claudication, Denies dyspnea, Denies dyspnea on exertion, Denies orthopnea, Denies paroxysmal nocturnal dyspnea and Denies slow heart rate Resp Denies cough, Denies dyspnea and Denies dyspnea on exertion GI Denies abdominal pain, Denies change in bowel habits, Denies excessive flatus, Denies nausea and Denies vomiting Denies urinary incontinence, Denies urinary hesitancy and Denies urinary urgency Musc Denies abnormal gait, Denies atrophy, Denies deformity and Denies limited range of motion Skin/Breast Denies bleeding lesions, Denies changing lesions and Denies rash Neuro Denies abnormal gait, Denies behavioral changes, Denies confusion and Denies lack of coordination Psych Denies behavioral changes and Denies confusion Physical exam (Primary Care) Vital Signs: Last Vital Signs BP 120/80 10/10/23 14:37 BMI result Body Mass Index 23.4 Tobacco/Smoking Status: Tobacco use Status Tobacco use date assessed 10/10/23 10/10/23 14:44 Patient Tobacco Use Status Never used Tobacco 10/10/23 14:44 e-Cigarette/Vaping Use Never Used 10/10/23 14:44 PHQ-9: PHQ-9 Score PHQ-9: Total score 13 10/10/23 14:56 Depression Screening Interpretation: Positive Depression Screening Follow-up: Existing condition and Declines treatment Thrive Assessment: Date of Thrive Assessment Date Thrive assessed 10/10/23 10/10/23 14:44 Currently or been in a relationship where the following occur: no concerns reported Const General: No confusion Orientation/consciousness: patient oriented x3 and No confusion HENMT Head: Yes normal to inspection, Yes normocephalic and Yes atraumatic Ears: external ears normal Eyes General: appearance normal, both eyes and all related structures Eyelids: Yes eyelids normal Conjunctivae: conjunctivae normal Neck Neck: Yes normal visual inspection and Yes supple Resp Effort & Inspection: normal respiratory effort Auscultation: clear to auscultation bilaterally Cardio Jugular venous distension: no JVD Rate: regular rate Rhythm: regular rhythm Heart sounds: S1 normal heart sound present and S2 normal heart sound present GI Inspection: Yes normal to inspection Palpation (GI): Soft to palpation and nontender Auscultation: normal bowel sounds Skin General skin exam: no rashes or lesions noted Neuro General: patient oriented x3, no focal motor deficits and No confusion Extrem General: Yes full ROM Psych Appearance: grossly normal Office Procedures Flu Questionnaire Does the patient have a severe egg allergy?: No Immunizations flu vacc [id number] 6mos up(PF) 60 mcg(15 mcgx4)/0.5 mL IM syringe Performing Provider: Rosalie Yoder MD [facility] Documented (not given) by: SANJAY Martin on 10/10/23 14:44 Reason Not Given: Patient Refused Assessment and Plan Assessment & Plan (1) Physical exam: Code(s): Z00.00 - Encounter for general adult medical examination without abnormal findings Plan: Repeat in a year. (2) Mild major depression: Code(s): F32.0 - Major depressive disorder, single episode, mild Plan: Start bupropion. Orders: Orders Influenza [id number] Immunization Today Z23 - Encounter for immunization SARS-CoV2/FLU/RSV Today R09.89 - Other specified symptoms and signs involving the circulatory and respiratory systems Medications: New bupropion HCl 150 mg PO QAM 30 days 30 tabs 0RF Coding Level of Care Code Est Pt Prev Care 18-39y(16257) Diagnoses Physical exam Z00.00 Mild major depression F32.0 Additional Codes JOLIE-7 Assessment Billing - JOLIE-7 Assessment Tool: JOLIE-7 Assessment 16313 ([id number]) Time Spent (min) 31
== END 2023-10-10 15:07 | disposition home or self-care (01) ==
PROVIDERS: PCP Internal Medicine; Visit Provider Internal Medicine
DX: Z00.00 Encounter for general adult medical examination without abnormal findings (principal); F32.0 Major depressive disorder, single episode, mild
CPT/HCPCS: 99395

== ENCOUNTER 2023-10-10 15:14 | Outpatient (REF) | payer OTHER, SELFPAY ==
[2023-10-10 16:09] LABS: Influenza A PCR NEGATIVE (Negative); Influenza B PCR NEGATIVE (Negative); Resp Syncy Virus RNA Qual PCR NEGATIVE (Negative); SARS COV2 PCR INHOUSE NEGATIVE (Negative)
== END 2023-10-10 15:15 | disposition home or self-care (01) ==
LOC: HO.LAB 15:14
PROVIDERS: Visit Provider Internal Medicine
DX: Z11.52 Encounter for screening for COVID-19 (principal); Z20.822 Contact with and (suspected) exposure to COVID-19; R09.89 Other specified symptoms and signs involving the circulatory and respiratory systems
CPT/HCPCS: 0241U

== ENCOUNTER 2023-10-12 15:22 | Outpatient (AMB) | payer OTHER, SELFPAY ==
--- NOTE | 2023-10-12 15:30 | A.OFFVIS_ITS ---
Intake Vital Signs 10/12/23 15:34 Height 5 ft 3 in Weight 132 lb BMI 23.4 BP 129/72 Blood Pressure Location Lt brachial Position Sitting Respiration 16 Pulse 87 Pulse Source Pulse Oximeter Pulse Oximetry (%) 100 Oxygen Delivery Method Room Air Intake Visit Reasons: Follow Up/Fibromyalgia - Confirmed Allergies sertraline Adverse Reaction (Intermediate, Verified 10/12/23 15:36) nausea, loss of appetite HPI HPI Comments History of Present Illness Details Patient presents back to the office today for follow up She reports had to return the TENS unit because they were charging her monthly and she couldn't afford the payment. Did not fill muscle relaxer because of the copay. States pain today 11/25, some days better than others. Has appt with neurology next month for headaches, taking topamax. does not need a refill today. Prior: Vale presents to the office today for follow up. She has been using the TENS unit with good effect. Not using it very often as she struggles to find the time and has some difficulty applying the leads to her upper back but does not good relief when she does use it. Lidocaine patches also noted to be difficult to apply so is not sure how effective they are. She reports most days she is doing well with the occasional flare up. She did receive a call from [facility] neurology, new patient appt pending. Prior: Vale is a very pleasant 32-year-old female who presents to the office today for evaluation management of her chronic all-over pain. Patient reports that she has pain in the neck shoulders arms back hips knees legs feet. She is previously seen by Rheumatology and diagnosed with fibromyalgia. She is unable to pinpoint a specific area that is the most bothersome pain. She states that she just has pain all over, that waxes and wanes and most bothersome will change area all the time. Patient currently only taking ibuprofen for the pain with minimal relief. She recently completed physical therapy for her neck and hip which helped a little bit. She does report using a tens unit at physical therapy with some relief. She has never tried chiropractor, acupuncture, massage or injections. She states rheumatology told her that medication would not help her pain. She currently is only taking clonazepam, hydroxyzine, Topamax and vitamin-D. She is on Topamax for migraines, she is a former patient of Neurology here at [facility]. She is requesting referral to [facility] neurology as she does not feel like her concerns are being addressed with current neurologist. She states she will run out of Poetica within a month. Patient does try to live a active and healthy lifestyle. She works out, she is looking into aqua therapy but states sure it is not willing to cover at this time. She also is hesitant about taking medications as she does not like to put ?chemicals and my body . In terms of muscle damage condition is described as aching, tingling, exhausting. Pain is negatively impacting patient's enjoyment of life, general activity, mood, normal work correctional activities, sleep, walking, housework and physical work. [facility] Medical History (Updated 10/10/23 @ 15:09 by Rosalie Yoder MD) Lumbar pain Right hip pain Left hip pain Severe major depression without psychotic features Vaginal irritation Hypovitaminosis D Anemia Allergic sinusitis Chronic fatigue Anxiety Surgical History No pertinent past surgical history Family History Father Diabetes Hypertension CVD (cardiovascular disease) Stroke Mother No problems noted. 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 Answers questions appropriately. Fully engaged in examination. Skin: warm, dry, intact HEENT: Normocephalic. Hearing intact. Cardiac: External chest normal in appearance. Respiratory: No cough, audible wheezing or stridor. Abdomen: without gross distension. MS: No obvious swelling or deformities. Able to transition from sit to stand unassisted. Ambulates with bilaterally normal heel strike and toe off Neurological: Oriented to person, place, time and situation. Thought process intact. No gait abnormalities appreciated. Psychiatric: Appropriate mood and affect. Good judgment and insight. Assessment & Plan Assessment & Plan (1) Cervical spondylosis: Code(s): M47.812 - Spondylosis without myelopathy or radiculopathy, cervical region (2) Fibromyalgia, primary: Code(s): M79.7 - Fibromyalgia (3) Myofascial muscle pain: Code(s): M79.18 - Myalgia, other site Plan Vale presented to the office today for follow up. She is aware of current management strategies for fibromyalgia including sleep hygiene, diet, exercise and is currently looking for aquatherapy. She declines gabapentin or lyrica. Follow up with neurology as planned. aware that neurology will need to take over Topamax prescribing as they manage her headaches. D/C cyclobenzaprine, Methocarbamol 500mg po TID as needed. advised on cautions for use. All questions and concerns were addressed during the visit today. Patient will follow-up in this office in 3 months, sooner if needed. Medications: New methocarbamol Discontinue use of Cyclobenzaprine No driving while taking this medication. Do no take with alcohol or other [employer] Depressants 500 mg PO TID PRN 90 tabs 1RF muscle spasm Coding Level of Care Code Est Pt Level 4 (93522) Diagnoses Cervical spondylosis M47.812 Fibromyalgia, primary M79.7 Myofascial muscle pain M79.18
[2023-10-12 15:34] VITALS: BP 129/72; PULSE 87; RESP 16; O2SAT 100; BMI 23.4
== END 2023-10-12 15:41 | disposition home or self-care (01) ==
PROVIDERS: PCP Internal Medicine; Visit Provider Registered Nurse Emergency
DX: M47.812 Spondylosis without myelopathy or radiculopathy, cervical region (principal); M79.7 Fibromyalgia
CPT/HCPCS: 99214

== ENCOUNTER → 2023-10-12 15:22 | Outpatient (BNVA) | payer OTHER, SELFPAY | PROVIDERS: PCP Internal Medicine; Visit Provider Registered Nurse Emergency ==

== ENCOUNTER 2023-10-25 16:10 | Outpatient (REF) | payer OTHER, SELFPAY ==
--- NOTE | ~2023-10-25 | US_ITS ---
EXAMINATION: US PELVIS CLINICAL INFORMATION: Abnormal uterine bleeding LMP: Beginning of August, still bleeding COMPARISON: Pelvic ultrasound 01/26/2010 TECHNIQUE: Transabdominal scanning was performed. Transvaginal scanning was not performed. FINDINGS: Uterus: The uterus is anteverted and measures 8.1 x 3.4 x 4.5 cm. No focal fibroid. The endometrial thickness is 0.7 cm The uterus is smooth in contour and has normal myometrial echogenicity. Adnexa: Both ovaries are visualized. There is normal color flow to the adnexa. There is no ovarian torsion. There is no pelvic ascites or fluid collection. Right ovary is normal in appearance and measures 2.2 x 1.6 x 2.4 cm. Volume 2.8 mL. Left ovary measures 3.6 x 2.0 x 2.1 cm. Volume 7.9 mL. 3.1 x 1.4 x 1.2 cm cyst is likely a benign functional cyst. No follow-up imaging is recommended. US/US pelvic complete IMPRESSION: Normal pelvic ultrasound.
== END 2023-10-25 16:11 | disposition home or self-care (01) ==
LOC: HO.US 16:10
PROVIDERS: PCP Internal Medicine; Visit Provider Advanced Practice Midwife
DX: N93.9 Abnormal uterine and vaginal bleeding, unspecified (principal)
CPT/HCPCS: 76856

== ENCOUNTER 2023-10-30 13:49 | Outpatient (REF) | payer OTHER, SELFPAY ==
[2023-10-30 14:08] LABS: Hematocrit 30.1 % (37.0-47.0); Hemoglobin 9.6 g/dl (12.0-16.0); Mean Corpuscular HGB Conc 31.9 g/dl (31.0-35.0); Mean Corpuscular Hemoglobin 25.9 pg (27.0-33.0); Mean Corpuscular Volume 81.4 fL (80.0-98.0); Mean Platelet Volume 9.9 fL (9.4-12.3); Platelet Count 366 X10*3/uL (160-400); Red Cell Distribution Width 13.6 % (11.0-16.0); White Blood Count 7.4 X10*3/uL (4.8-10.8)
== END 2023-10-30 13:50 | disposition home or self-care (01) ==
LOC: HO.LAB 13:49
PROVIDERS: PCP Internal Medicine; Visit Provider Obstetrics & Gynecology
DX: N93.9 Abnormal uterine and vaginal bleeding, unspecified (principal)
CPT/HCPCS: 36415; 58100; 81025; 85027; 88305

== ENCOUNTER 2023-10-30 14:10 | Outpatient (AMB) | payer OTHER, SELFPAY ==
--- NOTE | 2023-10-30 14:24 | MHC.OFFVIS ---
Intake Vital Signs 10/30/23 14:25 Height 5 ft 3 in Weight 132 lb BMI 23.4 BP 122/66 Intake Visit Reasons: blood clot/lab follow up per Dry Pan Operator: Dry Pan Operator Present (Isaura) Allergies sertraline Adverse Reaction (Intermediate, Verified 10/30/23 14:26) nausea, loss of appetite Is last menstrual period known: Yes Last menstrual period: 08/31/23 HPI HPI Comments History of Present Illness Details Presenting complaining of heavy vaginal bleeding with passage of blood clots . The patient was seen by Jacey Spencer CNM the following workup was done in 10/11: Co testing negative H&H 12.4/38.5, repeated today 9.6/30.1 TSH, prolactin, total and free testosterone , DHEA-S within normal Pelvic ultrasound unremarkable PFSH Medical History Lumbar pain Right hip pain Left hip pain Severe major depression without psychotic features Vaginal irritation Hypovitaminosis D Anemia Allergic sinusitis Chronic fatigue Anxiety Surgical History No pertinent past surgical history Family History Father Diabetes Hypertension CVD (cardiovascular disease) Stroke Mother No problems noted. 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/hazards: No Cognitive needs: No Hearing needs: No Vision needs: No Female Reproductive History Menstrual Age of Menarche: 12 Date of last menstrual period: 08/31/23 Review of Systems Const All systems reviewed & are unremarkable except as noted in HPI and below Physical Exam Vital Signs: BMI result Body Mass Index 23.4 General: Yes no CVA tenderness External Female Exam: normal external appearance and normal appearance of the urethra Speculum Exam - Vagina: normal appearance of the vagina, normal palpation, no lesions and no masses Speculum Exam - Cervix: normal appearance of the cervix, normal palpation, no lesions, no masses, nontender and Other cervical findings present (No evidence of active vaginal bleeding) Bimanual exam- vagina & uterus: normal bimanual exam, normal palpation, uterine size normal, normal palpation, uterine shape normal, No Cervical tenderness present and non-tender Bimanual Exam- Adnexa, other: normal adnexae Back/Spine/Pelvis Back: no CVA tenderness Office Procedures Endometrial Biopsy Details: The patient was counseled regarding the indication and benefits of endometrial sampling to rule out endometrial pathology including not limited to endometrial hyperplasia or endometrial cancer and others; The alternatives (Either do nothing vs. hysteroscopy D&C) & the risks were discussed with the patient including but not limited: pain, uterine perforation, bleeding, infection, possible injury to bladder, bowel, ureter, possible need for blood transfusion with all its possible risks. The patient verbalized understanding all questions answered and signed consent. Urine test done in the office was negative The patient was placed into the dorsal lithotomy position; a speculum was inserted in the vagina. Using aseptic technique for the procedure, the cervix was cleansed with Betadine. The anterior lip of the cervix was grasped with a single tooth tenaculum. The uterus was sounded to 7 cm with a 4 mm Pipelle was used. Tissues samples were obtained and placed in formalin, in a patient labeled container and sent to the pathology department. At the end of the procedure, there was minimal bleeding noted The patient tolerated the procedure well and was discharged in good condition with the following instructions: Nothing in the vagina until the bleeding stops. No sex until the bleeding stops, to call if any of the following occurs: fever (>100.4), flu-like symptoms, abdominal pain, heavy bleeding, four smelling vaginal discharge. The patient was instructed to schedule a Follow up appointment in 2 weeks to discuss pathology results of the biopsy and treatment options. This note was generated with a voice recognition program. Some errors may have been overlooked during the review of this note. Sometimes these errors may affect the content or meaning of a given sentence. [id number] Biopsy Results AMB Test Urine AMB Test Urine Negative Last Edit by SANJAY Rincon on 10/30/23 14:34 Assessment & Plan Assessment & Plan (1) Abnormal uterine bleeding (AUB): Code(s): N93.9 - Abnormal uterine and vaginal bleeding, unspecified Plan: EMB recommended, see procedure note. Discussed with the patient the results of the work up done and options of treatment including control pills , Mirena IUD, cyclic Provera. All pros, cons, risks and benefits if each option was discussed with the patient and the patient decided to go ahead with BCP so a more detailed discussion re: control pills including mechanism of action, benefits (regular menses, less dysmenorrhea, less risk of ovarian cancer, ...), risks ( DVT, PE, Strokes, VA, ? increased breast ca, others). Instructions were given to use a back- up method for contraception x 1st 2 weeks, and to schedule a 2 week EMB follow-up appointment and a 3 months appointment for blood pressure check Orders: Orders AMB HCG Urine Test Today N93.9 - Abnormal uterine and vaginal bleeding, unspecified Surgical Today N93.9 - Abnormal uterine and vaginal bleeding, unspecified AMB Endometrial Biopsy Today N93.9 - Abnormal uterine and vaginal bleeding, unspecified Medications: New desogestrel-ethinyl estradiol 0.15-0.03 mg (Apri) 1 tab PO DAILY 28 tabs 3RF 28 days Discontinued topiramate Discontinued Reason: Doctor's Order 50 mg PO DAILY 90 tabs 0RF 90 days Coding Level of Care Code Est Pt Level 3 (07206) Procedure Only Diagnoses Abnormal uterine bleeding (AUB) N93.9 CPT Codes Endometrial Biopsy - CPT: 55778-Fvwcybhqiif Biopsy ([id number])
[2023-10-30 14:25] VITALS: BP 122/66; BMI 23.4
== END 2023-10-30 15:13 | disposition home or self-care (01) ==
LOC: HO.HWS 14:10
PROVIDERS: PCP Internal Medicine; Visit Provider Obstetrics & Gynecology
DX: N93.9 Abnormal uterine and vaginal bleeding, unspecified (principal)
CPT/HCPCS: 58100; 99213

== ENCOUNTER 2023-11-13 13:59 | Outpatient (REF) | payer OTHER, SELFPAY | END 2023-11-13 14:00 | disposition home or self-care (01) | LOC: HO.LNP 13:59 | PROVIDERS: PCP Internal Medicine; Visit Provider Obstetrics & Gynecology | DX: Z32.02 Encounter for pregnancy test, result negative (principal); N93.9 Abnormal uterine and vaginal bleeding, unspecified | CPT/HCPCS: 58100; 81025; 88305 ==

== ENCOUNTER 2023-11-13 13:59 | Outpatient (AMB) | payer OTHER, SELFPAY ==
--- NOTE | 2023-11-13 14:01 | MHC.OFFVIS ---
Intake Vital Signs 11/13/23 14:03 Height 5 ft 3 in Weight 132 lb BMI 23.4 BP 106/72 Intake Visit Reasons: EMB Follow up Membership Manager Required: No Information Interpreted: non-clinical & clinical Universal Grinder Set Up Operator: Universal Grinder Set Up Operator Present Accompanied by: Self / Same As Patient Allergies sertraline Adverse Reaction (Intermediate, Verified 11/13/23 14:04) nausea, loss of appetite Is last menstrual period known: Yes Last menstrual period: 10/23/23 Post menopausal: No Patient : No HPI HPI Comments History of Present Illness Details Presenting for EMB follow-up. The pathology showed the following: Endometrium, biopsy: Strips of mucinous epithelium and fragments of endocervical glandular epithelium (see comment). Comment: Repeat endometrial sampling is recommended. [facility] Medical History Lumbar pain Right hip pain Left hip pain Severe major depression without psychotic features Vaginal irritation Hypovitaminosis D Anemia Allergic sinusitis Chronic fatigue Anxiety Surgical History No pertinent past surgical history Family History Father Diabetes Hypertension CVD (cardiovascular disease) Stroke Mother No problems noted. 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 occupational exposures/hazards: No Cognitive needs: No Hearing needs: No Vision needs: No Female Reproductive History Menstrual Age of Menarche: 12 Date of last menstrual period: 10/23/23 Review of Systems Const All systems reviewed & are unremarkable except as noted in HPI and below Reports as per HPI and Reports no additional complaints GI Reports no additional complaints Reports no additional complaints Physical Exam Vital Signs: Last Vital Signs BP 106/72 11/13/23 14:03 BMI result Body Mass Index 23.4 Office Procedures Endometrial Biopsy Details: The patient was counseled regarding the indication and benefits of endometrial sampling to rule out endometrial pathology including not limited to endometrial hyperplasia or endometrial cancer and others; The alternatives (Either do nothing vs. hysteroscopy D&C) & the risks were discussed with the patient including but not limited: pain, uterine perforation, bleeding, infection, possible injury to bladder, bowel, ureter, possible need for blood transfusion with all its possible risks. The patient verbalized understanding all questions answered and signed consent. Urine test done in the office was negative The patient was placed into the dorsal lithotomy position; a speculum was inserted in the vagina. Using aseptic technique for the procedure, the cervix was cleansed with Betadine. The anterior lip of the cervix was grasped with a single tooth tenaculum. The uterus was sounded to 7 cm with a 4 mm Pipelle was used. Tissues samples were obtained and placed in formalin, in a patient labeled container and sent to the pathology department. At the end of the procedure, there was minimal bleeding noted The patient tolerated the procedure well and was discharged in good condition with the following instructions: Nothing in the vagina until the bleeding stops. No sex until the bleeding stops, to call if any of the following occurs: fever (>100.4), flu-like symptoms, abdominal pain, heavy bleeding, four smelling vaginal discharge. The patient was instructed to schedule a Follow up appointment in 2 weeks to discuss pathology results of the biopsy and treatment options. This note was generated with a voice recognition program. Some errors may have been overlooked during the review of this note. Sometimes these errors may affect the content or meaning of a given sentence. [id number] Biopsy Results AMB Test Urine AMB Test Urine Negative Last Edit by Daniela Figueredo MA on 11/13/23 14:25 Results Reviewed Results Reviewed: Laboratory Last Values Tst Clinic Negative 11/13/23 14:23 Assessment & Plan Assessment & Plan (1) Abnormal uterine bleeding (AUB): Code(s): N93.9 - Abnormal uterine and vaginal bleeding, unspecified Plan: Discussed with the patient the results of endometrial biopsy pathology, insufficient tissues for diagnosis. Recommended to the patient that the next step is to repeat endometrial sampling via hysteroscopy D&C possible polypectomy versus office endometrial biopsy to r/o endometrial pathology including hyperplasia or cancer. All the pros and cons risks and benefits of each approach were discussed with the patient, endometrial biopsy being less invasive, office procedure with less sensitivity and inability diagnose a polyp and removal versus hysteroscopy done under anesthesia more invasive more sensitive to endometrial cancer and possibility of diagnosing and endometrial polyp with the possibility of polypectomy. All questions were answered pt verbalized understanding and decided to proceed with endometrial biopsy. EMB done, see procedure note Orders: Orders AMB HCG Urine Test Today Z32.02 - Encounter for test, result negative AMB Endometrial Biopsy Today N93.9 - Abnormal uterine and vaginal bleeding, unspecified Coding Level of Care Code Est Pt Level 3 (69456) Procedure Only Diagnoses Abnormal uterine bleeding (AUB) N93.9 CPT Codes Endometrial Biopsy - CPT: 52397-Gdphskzlrme Biopsy ([id number])
[2023-11-13 14:03] VITALS: BP 106/72; BMI 23.4
== END 2023-11-13 14:45 | disposition home or self-care (01) ==
LOC: HO.HWS 13:59
PROVIDERS: PCP Internal Medicine; Visit Provider Obstetrics & Gynecology
DX: N93.9 Abnormal uterine and vaginal bleeding, unspecified (principal); Z32.02 Encounter for pregnancy test, result negative
CPT/HCPCS: 58100; 99213

== ENCOUNTER 2024-01-08 14:39 | Outpatient (AMB) | payer OTHER, SELFPAY ==
[2024-01-08 14:45] VITALS: BP 126/80
--- NOTE | 2024-01-08 14:45 | A.OFFVIS_ITS ---
Vital Signs 01/08/24 14:45 BP 126/80 Intake Visit Reasons: EMB follow up Director Perioperative: Director Perioperative Present Allergies sertraline Adverse Reaction (Intermediate, Verified 11/13/23 14:04) nausea, loss of appetite Is last menstrual period known: Yes Last menstrual period: 07/16/20 Post menopausal: No Patient : No Do you need a note to return to daycare/school/sports/work: Yes (for surgery on monday) HPI Comments Details: Presenting after endometrial biopsy with no complaints, no vaginal bleeding and or pelvic pain. The pathology showed the following: Endometrial biopsy pathology showed the following: Endometrium, biopsy: Benign late secretory endometrium with focal inactive glands and focal stromal collapse; no atypia or carcinoma. Comment: Some of the fragments may be derived from benign functional polyps. Some features raise the possibility of partial progestin response and clinical correlation is necessary [facility] Medical History Lumbar pain Right hip pain Left hip pain Severe major depression without psychotic features Vaginal irritation Hypovitaminosis D Anemia Allergic sinusitis Chronic fatigue Anxiety Surgical History No pertinent past surgical history Family History Father Diabetes Hypertension CVD (cardiovascular disease) Stroke Mother No problems noted. 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/hazards: No Cognitive needs: No Hearing needs: No Vision needs: No Female Reproductive History Menstrual Age of Menarche: 12 Date of last menstrual period: 07/16/20 Total pregnancies: 2 Full term: 2 Review of Systems Card Reports as per HPI and Reports no additional complaints Resp Reports as per HPI and Reports no additional complaints GI Reports as per HPI and Reports no additional complaints Reports as per HPI Physical Exam Vital Signs: Last Vital Signs BP 126/80 01/08/24 14:45 Const General: cooperative, healthy appearing and comfortable Resp Effort & Inspection: normal respiratory effort Auscultation: clear to auscultation bilaterally Percussion: percussion normal Cardio Palpation: normal PMI Rate: regular rate Rhythm: regular rhythm Heart sounds: no murmurs and no rubs Peripheral pulses: Peripheral pulses 2+ throughout GI Inspection: Yes normal to inspection Palpation (GI): Soft to palpation, nontender, no guarding, not rigid and No hepa tosplenomegaly present Percussion: Yes normal to percussion Auscultation: normal bowel sounds Rectal Exam - Female: deferred Assessment & Plan Assessment & Plan (1) Abnormal uterine bleeding (AUB): Comment: Functional endometrial polyp on EMB pathology Code(s): N93.9 - Abnormal uterine and vaginal bleeding, unspecified Category: Medical Plan: Discussed with the patient the results the endometrial pathology with possible endometrial polyps, recommended hysteroscopy D&C possible p olypectomy/myomectomy. Discussed with the patient the procedure , all benefits and risks including but not limited to inability to complete the procedure , insufficient endometrial tissue for a complete evaluation of the endometrial cavity , bleeding, infection, possible need for blood transfusion with all its risk ( HIV,syphilis, Hepatitis, anaphylaxis shock, others..), injury to bladder, rectum, possible need for laparoscopy/laparotomy or hysterectomy. The patient verbalized understanding and signed the consent. Instructions given the patient to schedule a 2 week postoperative appointment
== END 2024-01-08 16:06 | disposition home or self-care (01) ==
LOC: HO.HWS 14:39
PROVIDERS: PCP Internal Medicine; Visit Provider Obstetrics & Gynecology
DX: N93.9 Abnormal uterine and vaginal bleeding, unspecified (principal)
CPT/HCPCS: 99213

== ENCOUNTER → 2024-01-08 14:39 | Outpatient (BNVA) | payer OTHER, SELFPAY | PROVIDERS: PCP Internal Medicine; Visit Provider Obstetrics & Gynecology ==

== ENCOUNTER 2024-01-26 09:40 | Day surgery (SDC) | payer OTHER, SELFPAY ==
[2024-01-24 10:41] VITALS: BMI 23.4
--- NOTE | 2024-01-24 12:09 | HO.ANESPROP2 ---
Documented by User: Thuy Ashley NP 01/24/24 12:10 HPI - Anesthesia Eval Consult details Narrative: 33yo F for D&C Hysteroscopy,possible myomectomy,possible polypectomy PMFSH Active Problems Active Problems: All Active Problems Abnormal uterine bleeding (AUB) (Acute) Mild major depression (Acute) Migraine (Acute) Myofascial muscle pain (Acute) Cervical spondylosis (Acute) Urinary frequency (Acute) Fibromyalgia, primary (Acute) Physical exam (Acute) Rash (Acute) Allergic reaction (Acute) Productive cough (Acute) Dyspnea (Acute) Chest pain (Acute) Sinusitis (Acute) Conjunctivitis, left eye (Acute) Tension headache, chronic (Acute) Encounter for annual routine gynecological examination (Acute) Vaginal discharge (Acute) Lumbar pain (Acute) Right hip pain (Acute) Left hip pain (Acute) Hypovitaminosis D (Acute) Anemia (Acute) Allergic sinusitis (Acute) Chronic fatigue (Acute) Anxiety (Acute) Past Medical History Medical History Cervical spondylosis Depression Lumbar pain Right hip pain Left hip pain Severe major depression without psychotic features Vaginal irritation Hypovitaminosis D Anemia Allergic sinusitis Chronic fatigue Anxiety Family History Family History Father Diabetes Hypertension CVD (cardiovascular disease) Stroke Mother No problems noted. Maternal Uncle Colon cancer Stroke Maternal Grandmother Cancer Paternal Aunt Mental health disorder Surgical History Surgical History No pertinent past surgical history Social History Social History Housing: Apartment Alcohol intake: current Alcohol intake frequency: holidays/special occasions only Alcohol type: wine Patient Tobacco Use Status: Never used Tobacco e-Cigarette/Vaping Use: Never Used Second Hand Smoke Exposure: No Are you DNR?: No Advance Directives: No Advance Directives Information Provided: Yes Nutrition Risks: No Nutritional Risk FDLMP: about one week ago service: No Current occupational status: employed 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 occupational exposures/hazards: No Cognitive needs: No Hearing needs: No Vision needs: No Meds Allergies Allergy/AdvReac Type Severity Reaction Status Date / Time sertraline AdvReac Intermediate nausea, Verified 11/13/23 14:04 loss of appetite Exam Height,Weight and Vital Signs: Height 5 ft 3 in Weight 59.874 kg Assessment and Plan Assessment Anesthesia Assessment: Chart Reviewed Documented by User: Shara Parks MD 01/26/24 11:26 [facility] Past Medical History Medical History Cervical spondylosis Depression Lumbar pain Right hip pain Left hip pain Severe major depression without psychotic features Vaginal irritation Hypovitaminosis D Anemia Allergic sinusitis Chronic fatigue Anxiety Family History Family History Father Diabetes Hypertension CVD (cardiovascular disease) Stroke Mother No problems noted. Maternal Uncle Colon cancer Stroke Maternal Grandmother Cancer Paternal Aunt Mental health disorder Family history of problems with anesthesia: No Surgical History Surgical History No pertinent past surgical history History of Problems with Anesthesia: No Social History Social History Housing: Apartment Alcohol intake: current Alcohol intake frequency: holidays/special occasions only Alcohol type: wine Patient Tobacco Use Status: Never used Tobacco e-Cigarette/Vaping Use: Never Used Second Hand Smoke Exposure: No Are you DNR?: No Advance Directives: No Advance Directives Information Provided: Yes Nutrition Risks: No Nutritional Risk FDLMP: about one week ago service: No Current occupational status: employed 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 occupational exposures/hazards: No Cognitive needs: No Hearing needs: No Vision needs: No Meds Allergies Allergy/AdvReac Type Severity Reaction Status Date / Time sertraline AdvReac Intermediate nausea, Verified 11/13/23 14:04 loss of appetite Exam Height,Weight and Vital Signs: Height 5 ft 3 in Weight 59.874 kg Vital Signs Temp Pulse Resp BP Pulse Ox O2 Del Method 01/26/24 11:11 98.3 F 109 H 18 148/93 H 100 Room Air Pertinent Lab Results Pertinent Lab Results: Lab Results 01/26/24 Range/Units 10:35 Urine Test NEGATIVE (NEGATIVE) Airway Mallampati Class: I TM Dist: >3cm Neck ROM: Full Loose/Missing/Broken Teeth: No (Denies broken, loose, missing teeth) Heart: RRR Lungs: CTAB Assessment and Plan Assessment Anesthesia Assessment: Anesthesia Plan Discussed and Chart Reviewed Final Anesthetic Review Family History of Problems with Anesthesia: No History of Problems with Anesthesia: No NPO: Yes ASA Class: II Final Preanesthetic Review: No Changes in Pt Med Stat, Meds/Allgs Chart Reviewed, Consent Obtained/Reviewed and Anes Risks/Benef Reviewed Patient Risk: Low Procedure Risk: Low Assessment/Block/Sedation in SS: Assess/Block/Sedation-SS Anesthetic Plan Anesthetic Plan: GA Disposition: Standard PACU
[2024-01-26 10:57] VITALS: BMI 23.0
[2024-01-26 10:59] LABS: UPreg QC Valid YES; Urine Pregnancy NEGATIVE (NEGATIVE)
[2024-01-26] MEDS: Lactated Ringers 1,000 ML 100 ML IVCONT (11:01)
[2024-01-26 11:11] VITALS: BP 148/93; PULSE 109; RESP 18; TEMP 36.8; O2SAT 100
--- NOTE | 2024-01-26 11:13 | MHC.SHP ---
Pre-Procedural Eval Section A - 24 Hr Update-Section A only Date of Service: 01/26/24 The patient is an INPATIENT: No Changes since office visit: No Cold of Flu in the past 2 weeks, No New Medical Problems, No Changes in Medication and No Patient answered all questions The patient has been examined within 24 hours of the surgical procedure. The History & Physical has been completed within 30 days and I have reviewed it.: Yes Section B - Complete if H&P > 30 days Chief Complaint: Abnormal uterine and vaginal bleeding, unspecified Allergies: Allergies Allergy/AdvReac Type Severity Reaction Status Date / Time sertraline AdvReac Intermediate nausea, Verified 11/13/23 14:04 loss of appetite Plan Diagnosis/Plan: Unchanged I have reviewed the history and physical and performed a pertinent physical examination on my patient. No changes have occurred unless specified. Time Spent With Patient Time: Total time managing care of this patient today ____ minutes.
--- NOTE | 2024-01-26 12:20 | P.OP_ITS ---
Operative Note Operative Note Date of Service: 01/26/24 Narrative: Preop Diagnosis: Abnormal uterine bleeding, endometrial polyp on EMB pathology Operation: Diagnostic Hysteroscopy, Dilataion & Curettage Post Op Diagnosis: Normal endometrial and endocervical cavity, no evidence of pathology QBL: Minimal Anesthesia: GLMA Surgeon: Abdoul Gaston MD Boatbuilder Supervisor: None Complication: None Pathology: Endometrial Scrapings Procedure: The patient was put in the dorsal lithotomy position, scrubbed, and draped in the usual manner. A sterile speculum was inserted in the patient's vagina. The anterior lip of the cervix was grasped with a single tooth tenaculum. The cervix was dilated up to 5 mm, then the scope was inserted in the patient's uterus. Inspection revealed normal endocervical & endometrial cavity with no evidence of pathology. The scope was taken out of the uterine cavity , then sharp curetting was carried on with no complications. At the end of the procedure, all instruments were taken out of the patient uterine and vaginal cavity. The single tooth tenaculum was removed and homeostasis was assured using pressure. The patient tolerated the procedure well and was transferred to the PACU in a stable condition.
--- NOTE | 2024-01-26 12:20 | PM.OP ---
Brief Operative Note Date of Service: 01/26/24 Pre-op diagnosis: Abnormal uterine bleeding, endometrial polyp on EMB pathology Post-op diagnosis: same (Normal endometrial cavity) Procedure: Hysteroscopy D&C Surgeon: Abdoul Gaston MD Anesthesia: GLMA Was an Ocean Export Coordinator used for this Procedure?: No Estimated blood loss (mL): 0 Pathology: other (Endometrial Scrapping. ) Condition: stable Disposition: PACU
[2024-01-26 12:24] VITALS: BP 125/83; PULSE 98; RESP 15; TEMP 36.3; O2SAT 98
[2024-01-26] MEDS: Acetaminophen 325 MG TABLET 650 MG PO (12:28)
[2024-01-26 12:29] VITALS: BP 131/85; PULSE 88; RESP 15; O2SAT 99
[2024-01-26 12:34] VITALS: BP 125/83; PULSE 96; RESP 16; O2SAT 99
[2024-01-26 12:39] VITALS: BP 143/93; PULSE 84; RESP 16; O2SAT 100
[2024-01-26 12:54] VITALS: BP 125/83; PULSE 98; RESP 15; TEMP 36.3; O2SAT 98
== END 2024-01-26 13:12 | disposition home or self-care (01) ==
PROVIDERS: PCP Internal Medicine; Visit Provider Obstetrics & Gynecology
PROC: 0UDB8ZZ Extraction of Endometrium, Via Natural or Artificial Opening Endoscopic (ICD-10-PCS; CPT 58558; principal; 2024-01-26 12:00)
DX: N93.9 Abnormal uterine and vaginal bleeding, unspecified (principal); N89.8 Other specified noninflammatory disorders of vagina; D64.9 Anemia, unspecified; F32.A Depression, unspecified; F41.9 Anxiety disorder, unspecified; E55.9 Vitamin D deficiency, unspecified; R53.82 Chronic fatigue, unspecified; J30.9 Allergic rhinitis, unspecified; Z88.8 Allergy status to other drugs, medicaments and biological substances
CPT/HCPCS: 58558; 81025; 88305; J1100; J1885; J2405; J2704; J3010

== ENCOUNTER → 2024-01-26 09:40 | Outpatient (BNV) | payer OTHER, SELFPAY | PROVIDERS: PCP Internal Medicine; Visit Provider Obstetrics & Gynecology | DX: N93.9 Abnormal uterine and vaginal bleeding, unspecified (principal); N84.0 Polyp of corpus uteri | CPT/HCPCS: 58558 ==

== ENCOUNTER 2024-02-15 14:32 | Outpatient (AMB) | payer OTHER, SELFPAY ==
--- NOTE | 2024-02-15 14:39 | MHC.OFFVIS ---
Vital Signs 02/15/24 14:41 Height 5 ft 3 in Weight 132 lb BMI 23.4 BP 110/76 Intake Visit Reasons: post op Allergies sertraline Adverse Reaction (Intermediate, Verified 11/13/23 14:04) nausea, loss of appetite HPI Comments Details: The patient is presenting post hysteroscopy D&C with minimal vaginal bleeding no feverishness chills or abdominal pain. The patient has been on control pills and her menstrual cycles are regular and light, she is complaining of vaginal discharge associated with foul odor Intraoperative hysteroscopic findings: Normal endometrial cavity The pathology showed the following: Endometrium, curettage: Early secretory endometrium; negative for atypia, hyperplasia or malignancy. The following workup was done.: H&H= 9.6/30.1 TSH, prolactin, hCG, GC and chlamydia were negative. Testosterone total and free, 17 hydroxyprogesterone and DHEA-S all within normal Endometrial biopsy pathology showed the following: Benign late secretory endometrium with focal inactive glands and focal stromal collapse; no atypia or carcinoma. Comment: Some of the fragments may be derived from benign functional polyps. Some features raise the possibility of partial progestin response and clinical correlation is necessary Co testing was done was negative. Mammogram was negative. Pelvic ultrasound showed the following: Uterus: The uterus is anteverted and measures 8.1 x 3.4 x 4.5 cm. No focal fibroid. The endometrial thickness is 0.7 cm The uterus is smooth in contour and has normal myometrial echogenicity. Adnexa: Both ovaries are visualized. There is normal color flow to the adnexa. There is no ovarian torsion. There is no pelvic ascites or fluid collection. Right ovary is normal in appearance and measures 2.2 x 1.6 x 2.4 cm. Volume 2.8 mL. Left ovary measures 3.6 x 2.0 x 2.1 cm. Volume 7.9 mL. 3.1 x 1.4 x 1.2 cm cyst is likely a benign functional cyst. No follow-up imaging is recommended. [facility] Medical History Cervical spondylosis Depression Lumbar pain Right hip pain Left hip pain Severe major depression without psychotic features Vaginal irritation Hypovitaminosis D Anemia Allergic sinusitis Chronic fatigue Anxiety Surgical History No pertinent past surgical history Family History Father Diabetes Hypertension CVD (cardiovascular disease) Stroke Mother No problems noted. 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/hazards: No Cognitive needs: No Hearing needs: No Vision needs: No Female Reproductive History Menstrual Age of Menarche: 12 Date of last menstrual period: 02/14/24 Physical Exam Vital Signs: Last Vital Signs BP 110/76 02/15/24 14:41 BMI result Body Mass Index 23.4 Assessment & Plan Assessment & Plan (1) Abnormal uterine bleeding (AUB): Code(s): N93.9 - Abnormal uterine and vaginal bleeding, unspecified Category: Medical Plan: CBC to be repeated in 3 months, instructions given the patient to continue taking control pills, refill sent to the patient's pharmacy, iron sulfate 325 mg p.o. b.i.d. for 3 more months and will repeat CBC then. Instructions given the patient to schedule a 3 month follow-up appointment. (2) Bacterial vaginosis: Code(s): N76.0 - Acute vaginitis; B96.89 - Other specified bacterial agents as the cause of diseases classified elsewhere Category: Medical Plan: GC and chlamydia cultures with BV panel taken. Per CDC recommendation, will screen for STI, HepBs Ag, HIV, RPR, Hep C Ab ordered. Will treat with Flagyl 500 mg p.o. b.i.d. x 7 days, Instructions given to the patient to refrain from sexual activity or to use condoms consistently and correctly during the BV treatment regimen, not to douch, it might increase the risk for relapse, and to call if symptoms persist or recur. Orders: Orders Complete Blood Count no Diff 3 Months N93.9 - Abnormal uterine and vaginal bleeding, unspecified Hepatitis B Surface Antigen Today B96.89 - Other specified bacterial agents as the cause of diseases classified elsewhere, N76.0 - Acute vaginitis Hepatitis C Antibody Today B96.89 - Other specified bacterial agents as the cause of diseases classified elsewhere, N76.0 - Acute vaginitis Syphilis Screen Today B96.89 - Other specified bacterial agents as the cause of diseases classified elsewhere, N76.0 - Acute vaginitis HIV Ab/Ag Today B96.89 - Other specified bacterial agents as the cause of diseases classified elsewhere, N76.0 - Acute vaginitis Medications: New metronidazole 500 mg PO BID 7 days 14 tabs 0RF Refilled cetirizine 10 mg PO DAILY 90 days PRN 90 tabs 1RF for congestion Coding Level of Care Code Est Pt Level 3 (92952) Diagnoses Abnormal uterine bleeding (AUB) N93.9 Bacterial vaginosis N76.0; B96.89
[2024-02-15 14:41] VITALS: BP 110/76; BMI 23.4
== END 2024-02-15 15:04 | disposition home or self-care (01) ==
PROVIDERS: PCP Internal Medicine; Visit Provider Obstetrics & Gynecology
DX: N93.9 Abnormal uterine and vaginal bleeding, unspecified (principal); N76.0 Acute vaginitis; B96.89 Other specified bacterial agents as the cause of diseases classified elsewhere
CPT/HCPCS: 99213

== ENCOUNTER 2024-02-15 14:32 | Outpatient (REF) | payer OTHER, SELFPAY ==
[2024-02-16 03:01] LABS: CT PCR NOT DETECTED (Not Detect.); NG PCR NOT DETECTED (Not Detect.)
[2024-02-16 11:09] LABS: Bacterial Vaginosis PCR NEGATIVE (Negative); Candida Group PCR NOT DETECTED (Not Detect); Candida glab krusei PCR NOT DETECTED (Not Detect); Trichomonas vaginalis PCR NOT DETECTED (Not Detect)
== END 2024-02-15 14:33 | disposition home or self-care (01) ==
LOC: HO.LNP 14:32
PROVIDERS: PCP Internal Medicine; Visit Provider Obstetrics & Gynecology
DX: N76.0 Acute vaginitis (principal); B96.89 Other specified bacterial agents as the cause of diseases classified elsewhere
CPT/HCPCS: 0352U; 0353U

== ENCOUNTER 2024-07-22 07:14 | Outpatient (REF) | payer OTHER, SELFPAY ==
[2024-07-22 08:27] LABS: Hemoglobin 14.6 g/dl (12.0-16.0); Mean Corpuscular Hemoglobin 29.9 pg (27.0-33.0); Mean Corpuscular Volume 87.9 fL (80.0-98.0); Mean Platelet Volume 10.3 fL (9.4-12.3); Platelet Count 313 X10*3/uL (160-400); Red Blood Count 4.89 X10*6/uL (4.20-5.50); Red Cell Distribution Width 12.6 % (11.0-16.0); White Blood Count 6.6 X10*3/uL (4.8-10.8)
[2024-07-22 09:05] LABS: Syphilis Screen Nonreactive (Nonreactive)
[2024-07-22 09:07] LABS: HBsAGNum1 0.24 S/CO (0.00-0.99); HIV AB/AG Nonreactive (Nonreactive); HIV Num 1 0.05 S/CO (0.00-0.99); Hepatitis B Surface Antigen Negative (Negative); ~HepC Num1 0.19 S/CO (0.00-0.79); ~Hepatitis C Antibody Nonreactive (Nonreactive)
== END 2024-07-22 07:15 | disposition home or self-care (01) ==
LOC: HO.LAB 07:14
PROVIDERS: PCP Internal Medicine; Visit Provider Obstetrics & Gynecology
DX: N76.0 Acute vaginitis (principal); B96.89 Other specified bacterial agents as the cause of diseases classified elsewhere; N93.9 Abnormal uterine and vaginal bleeding, unspecified
CPT/HCPCS: 36415; 85027; 86780; 86803; 87340; 87389

== ENCOUNTER 2024-07-23 15:20 | Outpatient (AMB) | payer OTHER, SELFPAY ==
[2024-07-23 15:25] VITALS: BP 132/74; BMI 23.8
--- NOTE | 2024-07-23 15:25 | A.OFFVIS_ITS ---
Vital Signs 07/23/24 15:25 Height 5 ft 3 in Weight 134 lb 6 oz BMI 23.8 BP 132/74 Blood Pressure Location Lt brachial Position Sitting Intake Visit Reasons: 3 month Control F/U Allergies sertraline Adverse Reaction (Intermediate, Verified 07/23/24 15:33) nausea, loss of appetite HPI Comments Details: Presenting for 3 months control pill follow-up with no complaints. Are regular and light. Iron sulfate was discontinued after recent CBC. The patient is complaining of urinary frequency with no dysuria CBC in 08/11 was 14.6/43.0 PFSH Medical History Cervical spondylosis Depression Lumbar pain Right hip pain Left hip pain Severe major depression without psychotic features Vaginal irritation Hypovitaminosis D Anemia Allergic sinusitis Chronic fatigue Anxiety Surgical History No pertinent past surgical history Family History Father Diabetes Hypertension CVD (cardiovascular disease) Stroke Mother No problems noted. 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/hazards: No Cognitive needs: No Hearing needs: No Vision needs: No Female Reproductive History Menstrual Age of Menarche: 12 Review of Systems Const All systems reviewed & are unremarkable except as noted in HPI and below Reports as per HPI and Reports no additional complaints GI Reports no additional complaints Reports no additional complaints Physical Exam Vital Signs: Last Vital Signs BP 132/74 07/23/24 15:25 BMI result Body Mass Index 23.8 Results AMB Test Urine AMB Test Urine Negative Last Edit by Dagmar Santos CMA on 07/23/24 15:35 AMB Urinalysis, Automated UA Leukoctes 0 Archie/uL Last Edit by Dagmar Santos CMA on 07/23/24 15:36 UA Nitrite Negative Last Edit by Dagmar Santos CMA on 07/23/24 15:36 UA Urobilinogen 3.5 mg/dL Last Edit by Dagmar Santos CMA on 07/23/24 15:36 UA Protein 1 mg/dL Last Edit by Dagmar Santos CMA on 07/23/24 15:36 UA pH 6.0 Last Edit by Dagmar Santos CMA on 07/23/24 15:36 UA Blood 0 Gordo/uL Last Edit by Dagmar Santos CMA on 07/23/24 15:36 UA Specific [place] 1.020 Last Edit by Dagmar Santos CMA on 07/23/24 15:36 UA Ketone Positive Last Edit by Dagmar Santos CMA on 07/23/24 15:36 UA Bilirubin 0 mg/dL Last Edit by Dagmar Santos CMA on 07/23/24 15:36 UA Glucose 0 mg/dL Last Edit by Dagmar Santos CMA on 07/23/24 15:36 Results Reviewed Results Reviewed: Laboratory Last Values Urine pH (Auto) 6.0 07/23/24 15:27 Specific [place] (Auto) 1.020 07/23/24 15:27 Urine Protein (Auto) 1 mg/dL 07/23/24 15:27 Glucose (UA)(Auto) 0 mg/dL 07/23/24 15:27 Urine Ketones (Auto) Positive 07/23/24 15:27 Urine Blood (Auto) 0 Gordo/uL 07/23/24 15:27 Urine Nitrite (Auto) Negative 07/23/24 15:27 Urine Bilirubin (Auto) 0 mg/dL 07/23/24 15:27 Urine Urobilinogen (Auto) 3.5 mg/dL 07/23/24 15:27 Leukocyte Esterase (Auto) 0 Archie/uL 07/23/24 15:27 [facility] Negative 07/23/24 15:27 Assessment & Plan Assessment & Plan (1) Abnormal uterine bleeding (AUB): Code(s): N93.9 - Abnormal uterine and vaginal bleeding, unspecified Category: Medical Plan: control pills refill. Instructions given the patient to schedule annual exam within 3 more (2) Urinary frequency: Code(s): R35.0 - Frequency of micturition Category: Medical Plan: Urine dip done in the office was negative will send urine for culture. Instructions given the patient to call in case of this the for urinary frequency, fever above 104, flank pain. All questions answered, the patient verbalized understanding Orders: Orders AMB HCG Urine Test Today Z32.02 - Encounter for test, result negative AMB Urinalysis Automated Today R35.0 - Frequency of micturition Coding Level of Care Code Est Pt Level 3 (93620) Diagnoses Abnormal uterine bleeding (AUB) N93.9 Urinary frequency R35.0
== END 2024-07-23 15:54 | disposition home or self-care (01) ==
LOC: HO.HWS 15:21
PROVIDERS: PCP Internal Medicine; Visit Provider Obstetrics & Gynecology
DX: N93.9 Abnormal uterine and vaginal bleeding, unspecified (principal); R35.0 Frequency of micturition; Z32.02 Encounter for pregnancy test, result negative
CPT/HCPCS: 99213

== ENCOUNTER 2024-07-23 15:20 | Outpatient (REF) | payer OTHER, SELFPAY | END 2024-07-23 15:21 | disposition home or self-care (01) | LOC: HO.LAB 15:20 | PROVIDERS: PCP Internal Medicine; Visit Provider Obstetrics & Gynecology | DX: R35.0 Frequency of micturition (principal); Z32.02 Encounter for pregnancy test, result negative; R82.79 Other abnormal findings on microbiological examination of urine | CPT/HCPCS: 81003; 81025; 87086; 87088; 87186 ==

== ENCOUNTER → 2024-10-15 15:42 | Outpatient (BNVA) | payer OTHER, SELFPAY | PROVIDERS: PCP Internal Medicine; Visit Provider Internal Medicine | DX: Z00.00 Encounter for general adult medical examination without abnormal findings (principal); F33.1 Major depressive disorder, recurrent, moderate; R00.2 Palpitations; Z79.899 Other long term (current) drug therapy; Z28.21 Immunization not carried out because of patient refusal | CPT/HCPCS: 96127 ==

== ENCOUNTER 2024-10-25 14:27 | Outpatient (AMB) | payer OTHER, SELFPAY ==
[2024-10-25 14:44] VITALS: BMI 23.9
--- NOTE | 2024-10-25 14:44 | MHC.OFFVIS ---
Vital Signs 10/25/24 14:44 Height 5 ft 3 in Weight 135 lb BMI 23.9 Intake Visit Reasons: vaginal discharge, pelvic pain Allergies sertraline Adverse Reaction (Intermediate, Verified 10/15/24 16:11) nausea, loss of appetite HPI Comments Details: Presenting complaining of pelvic/suprapubic pressure associated vulvovaginal itching. The patient was diagnosed with a UTI , confirmed by positive urine culture a week ago received antibiotics for 7 days, since then has been having pelvic pressure and vulvovaginal itching, no fever or chills no nausea or vomiting [facility] Medical History Mild major depression Cervical spondylosis Depression Lumbar pain Right hip pain Left hip pain Severe major depression without psychotic features Vaginal irritation Hypovitaminosis D Anemia Allergic sinusitis Chronic fatigue Anxiety Surgical History No pertinent past surgical history Family History Father Diabetes Hypertension CVD (cardiovascular disease) Stroke Mother Osteoporosis Arthritis 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/hazards: No Cognitive needs: No Hearing needs: No Vision needs: No Female Reproductive History Menstrual Age of Menarche: 12 Review of Systems Const All systems reviewed & are unremarkable except as noted in HPI and below Physical Exam Vital Signs: BMI result Body Mass Index 23.9 General: Yes no CVA tenderness External Female Exam: normal external appearance and normal appearance of the urethra Speculum Exam - Vagina: normal appearance of the vagina, normal palpation, no lesions and no masses Speculum Exam - Cervix: normal appearance of the cervix, normal palpation, no lesions, no masses and nontender Bimanual exam- vagina & uterus: normal bimanual exam, normal palpation, uterine size normal, normal palpation, uterine shape normal, No Cervical tenderness present and non-tender Bimanual Exam- Adnexa, other: normal adnexae Back/Spine/Pelvis Back: no CVA tenderness Results AMB Test Urine AMB Test Urine Negative Last Edit by Yaima Kimble CMA on 10/25/24 15:14 Results Reviewed Results Reviewed: Laboratory Last Values [facility] Negative 10/25/24 15:12 Assessment & Plan Assessment & Plan (1) Pelvic pain: Code(s): R10.2 - Pelvic and perineal pain Category: Medical Plan: Urine dip and test done in the office were both negative. GC and chlamydia taken and pelvic ultrasound ordered. Discussed with the patient the differential diagnosis of pelvic pain including but not limited to adnexal, uterine masses, pelvic infections (PID), GI the (Irritable bowel syndrome, diverticulitis, others), musculoskeletal, myofascial pain abdominal wall , adhesions, endometriosis, psychological and others causes. Will check results and treat accordingly. All questions answered, the patient verbalized understanding. Instructed the patient to schedule an ultrasound and a follow-up appointment in 1-2 weeks. All questions answered, the patient verbalized understanding and agreed with the plan. (2) Vulvovaginitis: Code(s): N76.0 - Acute vaginitis Category: Medical Plan: GC/CT, Bacterial Vaginosis panel taken, Terazol 0.8% q.h.s. for 3 days was sent to the patient's pharmacy. The patient was instructed to call if symptoms don't improve in 48 hours. Orders: Orders CT NG by PCR Today B96.89 - Other specified bacterial agents as the cause of diseases classified elsewhere, N76.0 - Acute vaginitis US pelvic and transvaginal Today R10.2 - Pelvic and perineal pain Bacterial Vaginosis Panel Today B96.89 - Other specified bacterial agents as the cause of diseases classified elsewhere, N76.0 - Acute vaginitis AMB HCG Urine Test Today Z32.02 - Encounter for test, result negative Medications: New terconazole 0.8% 1 appful vaginal BEDTIME 3 days 20 grams 0RF Coding Level of Care Code Est Pt Level 3 (60243) Diagnoses Pelvic pain R10.2 Vulvovaginitis N76.0
== END 2024-10-25 15:24 | disposition home or self-care (01) ==
LOC: HO.HWS 14:27
PROVIDERS: PCP Internal Medicine; Visit Provider Obstetrics & Gynecology
DX: R10.2 Pelvic and perineal pain (principal); N76.0 Acute vaginitis; Z32.02 Encounter for pregnancy test, result negative
CPT/HCPCS: 99213

== ENCOUNTER 2024-10-25 14:27 | Outpatient (REF) | payer OTHER, SELFPAY ==
--- OUTSIDE RECORDS SUMMARY | 2024-10-25 15:14 | XMS_ITS | Clinical Summary ---
Author Organization [facility] Address [address] [place] [id number] Phone Care Team Providers Care Superintendent [employer] Name Role Phone Unavailable Primary Care Provider Unavailabl e Immunizations Immunization Administration Dates Next Due DTP 05/09/1994, 1,06/07/1990,04/05,02/01/1990 HPV, Quadrivalent 10/02/2007,06/07/2007,03/28/20 07 Hep B, ped/adol 02/23/1998,01/30/1995,12/28/1994 Hib (PRP-T) 06/05/1991 MMR 03/14/1995,12/12/1990 Meningococcal Conj (Menactra) MCV4P 03/28/2007 OPV 05/09/1994, 1,04/05/1990,02/01 Td (adult) (MBL), 2 Lf tetan us toxoid, PF, adsorbed 08/01/2002,08/29/2001 Tdap 03/28/2007 Unknown Vaccine 06/16/2006 Varicella 08/20/2001 Family History Relation Name Status Comments Brother Alive Brother: Alive and well Mother Alive Mother: Anxiety , Alive and well Social History Tobacco Use Types Packs/Day Years Used Date Smoking Tobacco: Never Assessed Comments Unknown Sex and Gender Information Value Date Recorded Sex Assigned at Not on file Legal Sex Female 4:26 PM EDT Gender Identity Not on file Sexual Orientation Not on file Plan of Treatment Health Maintenance Due Date Last Done Comments Varicella Vaccines (2 of 2 - 2-dose childhood series) 11/12/2001 08/20/2001 DTaP,Tdap,and Td Vaccines (7 - Td or Tdap) 03/28/2017 03/28/2007, 08/01/2002, 08/29/2001, Additional history exists Influenza Vaccines (#1) 2024 COVID-19 Vaccine ( season) 2024 HIB Vaccines Completed 06/05/1991 IPV Vaccines Completed 05/09/1994, 05/19, 04/05/1990, Additional history exists MMR Vaccines Completed 03/14/1995, 12/12/1990 Hepatitis B Vaccines Completed 02/23/1998, 01/30/1995, 12/28/1994 Meningococcal Vaccine Completed 03/28/2007 HPV Vaccines Completed 10/02/2007, 05/20, 03/28/2007 Hepatitis A Vaccines Aged Out No long er eligible based on patient's age to complete this topic Men B Vaccine Aged Out No longer elig ible based on patient's age to complete this topic Pneumococcal Vaccine Aged Out No long er eligible based on patient's age to complete this topic
--- OUTSIDE RECORDS SUMMARY | 2024-10-25 15:14 | XMS_ITS | Encounter Summary ---
Author Organization [facility] Address [address] [place] [address] Phone Care Team Providers Care Face Hardener Name Role Phone Naima Abraham NP Primary Care Provider Alvino harrell Encounter Details Date Type Department Care Team (Late st Contact Info) Description 05/04/2017 Conversion Encounter [facility] - [address] [address] Social History Tobacco Use Types Packs/Day Years Used Date Smoking Tobacco: Never Assessed Comments Unknown Sex and Gender Information Value Date Recorded Sex Assigned at Not on file Legal Sex Female 4:26 PM EDT Gender Identity Not on file Sexual Orientation Not on file documented as of this encounter Plan of Treatment Not on file documented as of this encounter Visit Diagnoses Not on filedocumented in this encounter Care Teams Face Hardener Relationship Specialty Start Date End Date Naima Abraham NP PCP - General 04/28/17 02/22/23 documented as of this encounter
[2024-10-25 17:59] LABS: Bacterial Vaginosis PCR NEGATIVE (Negative); Candida Group PCR NOT DETECTED (Not Detect); Candida glab krusei PCR NOT DETECTED (Not Detect); Trichomonas vaginalis PCR NOT DETECTED (Not Detect)
[2024-10-25 18:31] LABS: CT PCR NOT DETECTED (Not Detect.); NG PCR NOT DETECTED (Not Detect.)
== END 2024-10-25 14:28 | disposition home or self-care (01) ==
LOC: HO.LNP 14:27
PROVIDERS: PCP Internal Medicine; Visit Provider Obstetrics & Gynecology
DX: N76.0 Acute vaginitis (principal); B96.89 Other specified bacterial agents as the cause of diseases classified elsewhere
CPT/HCPCS: 81025; 81515; 87491; 87591

== ENCOUNTER 2024-10-26 07:26 | Outpatient (REF) | payer OTHER, SELFPAY ==
--- OUTSIDE RECORDS SUMMARY | 2024-10-26 07:29 | XMS_ITS | Clinical Summary ---
Author Organization [facility] Address [address] [place] [address] Phone Care Team Providers Care Nicker Name Role Phone Unavailable Primary Care Provider [...]
--- OUTSIDE RECORDS SUMMARY | 2024-10-26 07:29 | XMS_ITS | Encounter Summary ---
Author Organization [facility] Address [address] [place] [address] Phone Care Team Providers Care Transaction Processor Name Role Phone Naima Abraham NP Primary Care Provider Alvino harrell Encounter Details Date Type Department Care Team (Late st Contact Info) Description 05/04/2017 Conversion Encounter [facility] - [address] [address] Social History Tobacco Use Types Packs/Day Years [...] on filedocumented in this encounter Care Teams Transaction Processor Relationship Specialty Start Date End Date Naima Abraham NP PCP - General 04/28/17 02/22/23 documented as of this encounter
[2024-10-26 09:07] LABS: Alanine Aminotransferase 32 U/L (0-31); Albumin Level 4.1 g/dL (3.5-5.0); Alkaline Phosphatase 62 U/L (39-117); Anion Gap 11 (12-20); Aspartate Amino Transferase 23 U/L (5-31); Bilirubin Total 0.6 mg/dL (0.0-1.0); Blood Urea Nitrogen 13 mg/dL (9-16); Calcium 9.5 mg/dL (8.4-10.2); Carbon Dioxide 25 mmol/L (22-29); Chloride 108 mmol/L (96-108); Cholesterol 188 mg/dL (<200); Estimated Glomerular Filt Rate > 60; Glucose Fasting 91 mg/dL (60-99); HDL Cholesterol 65 mg/dL (>40); LDL Cholesterol Calculated 104 mg/dL (<100); Potassium 4.2 mmol/L (3.3-5.1); Sodium 140 mmol/L (135-145); Total Protein 7.6 g/dL (6.5-8.0); Triglycerides 99 mg/dL (<150)
[2024-10-26 09:22] LABS: Thyroid Stimulating Hormone 1.22 uIU/mL (0.32-4.0)
== END 2024-10-26 07:27 | disposition home or self-care (01) ==
LOC: HO.LAB 07:26
PROVIDERS: PCP Internal Medicine; Visit Provider Internal Medicine
DX: R00.2 Palpitations (principal)
CPT/HCPCS: 36415; 80053; 80061; 84443

== ENCOUNTER 2024-11-01 08:03 | Outpatient (AMB) | payer OTHER, SELFPAY ==
--- OUTSIDE RECORDS SUMMARY | 2024-11-01 08:05 | XMS_ITS | Encounter Summary ---
Author Organization [facility] Address [address] [place] [address] Phone Care Team Providers Care Workforce Development Program Director Name Role Phone Naima Abraham NP Primary Care Provider Alvino harrell Encounter Details Date Type Department Care Team (Late st Contact Info) Description 05/04/2017 Conversion Encounter [facility] - [address] [address] Social History Tobacco Use Types Packs/Day Years [...] on filedocumented in this encounter Care Teams Workforce Development Program Director Relationship Specialty Start Date End Date Naima Abraham NP PCP - General 04/28/17 02/22/23 documented as of this encounter
--- OUTSIDE RECORDS SUMMARY | 2024-11-01 08:05 | XMS_ITS | Clinical Summary ---
Author Organization [facility] Address [address] [place] [address] Phone Care Team Providers Care Secretary Specialist Name Role Phone Unavailable Primary Care Provider [...]
--- OUTSIDE RECORDS SUMMARY | 2024-11-01 08:05 | XMS_ITS | Data Portability ---
Author Organization [facility], [facility] Address [address] [place] [address] Care Team Providers Care Resident In Diagnostic Radiology Name Role Phone AMELIA SALINAS Primary Care Provider [phone] Assessment No assessment recorded. Plan of Treatment Reminders Order Date Submit Date Provider Last Modified By Organization Details Last Modified Time Details Appointments None recorded. Lab rapid strep group A, throat 2021 [id number][facility], [address] [place] [address], [id number], 17:20:14 culture, respiratory 2021 [place] [facility], [address] [place] [address], [place], [address], 12:06:37 Referral None recorded. Procedures None recorded. Surgeries None recorded. Imaging None recorded. Medication Orders amoxicillin 500 mg capsule 2021 [facility][id number], [address] [place], [address], 17:20:16 Patient TargetsNo targets recorded. Patient Instructions Encounter Date Encounter Id Patient Instructions Last Modified By Organization Details Last Modified Time 08/21/2022 [id number] sore throat: car e instructions [email or web address] Not available 08/21/2022 17:20:14 Based on your Presentation, Exam, and Lab Testing you are being diagnosed with a Strep Throat. Your Rapid Strep Test was Negative . I am going to send a Throat Culture to the lab for you to make sure you don't have a different form of strep in your throat. This will take about 72 hours for that result to return. We will contact you if it positive - if for some reason you don't get a copy of your results or hear from us - please contact our office. I am going to prescribe you and antibiotic to cover this infection. Please be sure to complete the full course of this antibiotic to prevent antibiotic resistance. It is also important to complete this antibiotic because this infection is what causes Scarlet Fever/Rheumatic Heart Disease. Antibiotics will typically take 4-5 days to start to work with symptom improvement. The following are my other recommendations to help with symptoms and is important for this diagnosis: 1. Do not share any food or drinks - strep is passed through direct saliva exchange (NOT IN THE AIR) 2. Change your toothbrush in 3-4 days so that you don't re-infect yourself after you complete the antibiotic. 3. Take Ibuprofen or Tylenol if you do not have any allergies to these medications. If you take a blood thinner you should not take NSAIDS like Ibuprofen. These medication will help with the inflammation in your respiratory tract which should help the cough. (I would alternate between Tylenol 650 mg and your Ibuprofen 600 mg every 4 hours) 4. Do not take any Cold Medications that have a Decongestant in it - this will dry out your throat and make the sore throat worse. 5. Drinking Hot Tea with honey can help coat and soothe your throat. 6. You would be considered contagious for the next 24-48 hours, or until fever resolves. I would be seen again if you develop any of the following symptoms. 1. Fever > 101.0 2. Stiff neck - where you can't turn your neck 3. Trouble swallowing your saliva - drooling 4. Swelling of a lymph node in your throat that is painful to touch 5. Difficulty breathing 6. Severe Headache Thank you for using [facility] today, please feel free to contact our office if you have any questions or concerns. Not available 08/21/2022 17:18:51 Reason for Referral None Reported. Results Created Date Observation Date Name Description Value Unit Range Abnormal Flag Note LastModifiedBy Organization Detail LastModifiedTime 08/21/20 22 08/24/2022 UPPER RESPI RATOR Y CULTU RE upper respiratory culture Final report Not Available [facility] ([facility]) [address] [facility], [place], [address], 08/24/2022 12:06:37 08/21/20 22 08/24/2022 UPPER RESPI RATOR Y CULTU RE result 1 Commen t Routi ne respi rator y bird Not Available [facility] ([facility]) [address] [facility], [place], [address], 08/24/2022 12:06:37 08/21/20 22 08/21/2022 rapid strep group A, throa t Unknown Analyte Normal = Negati ve Not Available [address] [place] [address], [phone], 08/21/2022 16:32:58 08/21/20 22 08/21/2022 rapid strep group A, throa t Unknown Analyte negati ve Not Available [address] [place] [address], [phone], 08/21/2022 16:32:58 Result Notes None recorded. Problems Name Problem SNOMED Code Status Onset Date Resolution Date Notes Provider Name and Address Organization Details Recorded Time Anxiety 42793353 Active KRISTI MACHUCA RA null, [place] - [facility] 2 16:39:40 Migraine 00889824 Active KRISTI CRUZ-MICKEY RA null, PA - [facility] 2 16:39:52 Depressive disorder 19578326 Active KRISTI CRUZ-MICKEY RA null, PA - [facility] 2 16:40:08 Eczema 08653845 Active KRISTI CRUZ-MICKEY RA null, PA - [facility] 2 16:40:29 Problem Notes None recorded. Medical Equipment None Reported. Allergies No known drug allergies Medications Name Sig Start Date Stop Date Status Note LastModified by Organization Details LastModified Time amoxicillin 500 mg capsule TAKE 1 CAPSULE BY MOUTH EVERY 8 HOURS FOR 10 DAYS active Not Available Not Available No t Available prednisone 10 mg tablet TAKE 3 TABLETS DAILY FOR 2 DAYS, THEN TAKE 2 TABLETS FOR 2 DAYS, THEN TAKE 1 TABLET FOR 2 DAYS. 08/21 completed Not Available Not Available Not Available cetirizine 10 mg tablet TAKE 1 TABLET BY MOUTH DAILY NEEDED FOR CONGESTIO N. active Not Available Not Available No t Available fluconazole 150 mg tablet TAKE 1 TABLET BY MOUTH NOW 08/21 completed Not Available Not Available Not Available betamethaso ne, augmented 0.05 % topical cream APPLY TOPICAL CREAM IN THE MORNING AND IN THE EVENING ON AREAS OF RASH ARMS, LEGS AND BACK active Not Available Not Available No t Available clonazepam 1 mg tablet TAKE ONE TABLET BY MOUTH EVERY DAY AT BEDTIME NEEDED FOR ANXIETY active Not Available Not Available No t Available cromolyn 4 % eye drops ADMINSTER 1 DROP INTO THE AFFECTED EYE(S) FOUR TIMES A DAY FOR 5 DAYS 08/21 completed Not Available Not Available Not Available sumatriptan 50 mg tablet TAKE 1 TABLET BY MOUTH NEEDED ORALLY ONCE A DAY, AT LEAST 2 HOURS BETWEEN DOSES. active Not Available Not Available No t Available topiramate 25 mg tablet TAKE ONE TABLET BY MOUTH EVERY DAY 08/21 completed Not Available Not Available Not Available triamcinolo ne acetonide 0.1 % topical cream APPLY IN THE MORNING AND EVENING TO RASH ON ARMS, BACK, LEGS, SCALP AND NECK FOR 10 DAYS AND ON RIGHT EYE FOR ONLY 5-7 DAYS DIRECTED 08/21 completed Not Available Not Available Not Available cephalexin 500 mg capsule TAKE 1 PILL IN THE MORNING AND IN THE EVENING FOR 7 DAYS 08/21 completed Not Available Not Available Not Available erythromyci n 5 mg/gram (0.5 %) eye ointment 1 APPLICATI ON INTO THE LEFT EYE 6 TIMES A DAY 08/21 completed Not Available Not Available Not Available ferrous sulfate 325 mg (65 mg iron) tablet TAKE ONE TABLET BY MOUTH EVERY OTHER DAY active Not Available Not Available No t Available sertraline 25 mg tablet TAKE ONE TABLET BY MOUTH EVERY DAY active Not Available Not Available No t Available hydroxyzine HCl 25 mg tablet TAKE ONE TABLET BY MOUTH EVERY DAY AT BEDTIME NEEDED FOR ITCH active Not Available Not Available No t Available mupirocin 2 % topical ointment APPLY TOPICALLY IN THE MORNING AND IN THE EVENING TO BIOPSY SITE AFTER WASHING WITH SOAP AND WATER 08/21 completed Not Available Not Available Not Available clobetasol 0.05 % scalp solution APPLY 5 TO 10 DROP IN THE MORNING AND IN THE EVENING THROUGOUT THE SCALP AND MASSAGE IT IN active Not Available Not Available No t Available fluticasone propionate 50 mcg/actuati on nasal spray,suspe nsion USE 1 SPRAY INTRANASA LLY DAILY; ADMINISTE R INTO EACH NOSTRIL. active Not Available Not Available No t Available doxycycline hyclate 100 mg tablet TAKE ONE TABLET BY MOUTH TWICE A DAY FOR 5 DAYS 08/21 completed Not Available Not Available Not Available amoxicillin 875 mg-potassiu m clavulanate 125 mg tablet TAKE ONE TABLET BY MOUTH TWICE A DAY 08/21 completed Not Available Not Available Not Available Vitamin D3 25 mcg (1,000 unit) capsule TAKE ONE CAPSULE BY MOUTH EVERY DAY active Not Available Not Available No t Available topiramate 50 mg tablet TAKE ONE TABLET BY MOUTH EVERY DAY active Not Available Not Available No t Available Nasal Decongestan t (oxymetazol ine) 0.05 % spray TAKE 2 SPRAYS NASAL TWO TIMES A DAY FOR 5 DAYS FOR SEVERE CONGESTIO N. USE 15 MINUTES BEFORE FLONASE. 08/21 completed Not Available Not Available Not Available Anti-Dandru ff 1 % shampoo APPLY 5ML TOPICALLY 2 TIMES A WEEK FOR 14 DAYS. LATHER INRO WET HAIR, LEAVE IN PLACE FOR APPROXIMA TELY 3 MINUTES, THEN RINSE 08/21 completed Not Available Not Available Not Available Sore Throat and Cough 5 mg-7.5 mg lozenges DISSOLVE ONE LOZENGE BY MOUTH/THR OAT EVERY 2 HOURS active Not Available Not Available No t Available Vitals Date Recorded Body height Body mass index (BMI) Body weight Pain severity - 0-10 verbal numeric rating [Score] - Reported Respiratory rate Oxygen saturation Oxygen saturation in Arterial blood by Pulse oximetry Heart rate Body temperature Systolic blood pressure Diastolic blood pressure Provider Name and Address Organization Details Last Updated DateTime 2 160.02 cm 22.1 kg/m2 36852.0 5 g 5 16 /min 96 % 96 % 77 /min 97.5 [degF] 125 mm[Hg] 81 mm[Hg] KRISTI MACHUCA RA PA - [facility] 2 16:44:34 Social History Question Answer Notes LastModified by Organizat ion Details LastModified Time Tobacco Smoking Status Never Smoker ELIAS Bansal - [facility] 08/21/2022 16:42:01 What Is Your Level Of Alcohol Consumption? Occasional Information not available 08/21/2022 Have You Had Direct Contact, Or Contact During Intimacy, With Monkeypox Rash, Scabs, Or Body Fluids From A Person With Monkeypox? No Information not available 08/21/2022 Do You Use Any Illicit Or Recreational Drugs? No Information not available 08/21/2022 Have You Recently Traveled Abroad? No Information not available 08/21/2022 Do You Or Have You Ever Used Any Other Forms Of Tobacco Or Nicotine? No Information not available 08/21/2022 Sex: Unknown Functional Status None recorded. Mental Status None recorded. Family History Relationship Description Onset Age of this Age Resolved Age Notes LastModified by Organization Details LastModified Time Father Diabetes mellitus Not available 12/2021 16:40:56 Father Heart disease Not available 12/2021 16:41:08 Father Hypertensive disorder Not available 12/2021 16:41:16 Maternal Uncle Malignant tumor of colon Not available 12/2021 16:41:44 Medical History No medical history recorded. Gynecological History Statement/Question Response Current Control Method None Date of LMP 08/10/2022 LMP Definite Obstetrics History GPAL:G 0 P 0 0 0 0 Past Encounters Encounter ID Performer Location Encounter Start Date Encounter Closed Date Diagnosis/Indication Diagnosis SNOMED-CT Code Diagnosis ICD10 Code Diagnosis Note [id number] [address] [address] 10/19/2016 20:03:59 10/19/2016 20:29:15 [id number] [address] [address] 07/22/2018 18:14:27 07/22/2018 19:06:[id number] [address] 06/12/2019 18:57:57 06/12/2019 19:32:43 [id number] [facility] [address] 11/02/2016 12:07:08 11/02/2016 12:46:34 [id number] ELIAS BARRAZA [address] [facility] [place] [address] 08/21/2022 15:12:44 08/21/2022 17:23:48 Acute pharyngitis 807195873 J02.9 Health Concerns Section Related Observation LastModified by Organization Detai ls LastModified Time None Recorded Concern Status LastModified by Organization Details LastModified Time None Recorded Advance Directives Directive None Recorded Payers Encounter Date Sequence Insurance Name Policy Number Policy Pressley Covered Member ID Pressley Member ID Guarantor Name 10/19/2016 1 [facility] [employer] - [employer] [id number] 3 Vale Cain [id number] Vale Cain 11/02/2016 1 [employer] - [employer] [id number] Vale Cain [id number] Vale Cain 07/22/2018 1 [employer] - [employer] [id number] Vale Cain [id number] Vale Cain 06/12/2019 1 [facility] - [employer] [id number] 3 Vale Cain [id number] Vale Cain 08/21/2022 1 [facility] IN[employer]ITY [facility] - [employer] [id number] Vale Cain [id number] Vale Cain Notes Date Note Type Note Provider Name and Address Organization Details Recorded Time 08/21/2022 text/html Headache UCRepor barry bypatient.Location:f acial; frontal Quality:not the worst headache ever Severity:mild Context:not related to trauma Associated Symptoms:no vomiting; no dizziness;nausea;sor e throat;cold symptomsSore throatReported bypatient.Location:t hroat Severity:moderate Quality:burning Onset/Timin days Associated Symptoms:no cough; no sinus pain;sore throat;nausea Context:no sick contacts Modifying Factors:OTC medication ;exposed to Strep ELIAS BARRAZA [address], [place], [address], [place] - [facility] 08/21/2022 17:24:11 OBGyn Episode No OBEpisode recorded.
[2024-11-01 08:13] VITALS: BP 130/90; PULSE 69; TEMP 36.8; O2SAT 98
--- NOTE | 2024-11-01 08:13 | MHC.OFFWIV ---
Intake Vital Signs 11/01/24 08:13 Weight 131 lb BP 130/90 H Blood Pressure Location Lt brachial Position Sitting Pulse 69 Pulse Source Pulse Oximeter Temp 98.3 F Temp Source Oral Pulse Oximetry (%) 98 Oxygen Delivery Method Room Air Intake Visit Reasons: EP Pain on RT side of face & neck and congestion Intake Note: Patient here for right sided face pain, stuffy nose- yellow brown mucus, neck pain, ringing of ears that has been present for 2 weeks. Patient Tobacco Use Status: Never used Tobacco Allergies sertraline Adverse Reaction (Intermediate, Verified 11/01/24 08:18) nausea, loss of appetite Do you need a note to return to daycare/school/sports/work: No HPI HPI Comments History of Present Illness Details History - The patient is a 33-year-old female presenting with acute sinus pain, headaches and facial discomfort. - She reports the onset of runny nose and nasal congestion over two weeks prior, initially thought to be viral in nature. - Symptoms have evolved to include pronounced right-sided facial pain and ocular-region discomfort, exacerbated by chewing. - Additional complaints include neck discomfort, periodic ear pain, and tinnitus. - The patient noted changes in mucus coloration over the course, now yelllow-brown - Treatment to date has focused on symptomatic relief through nasal corticosteroids and hydration. - A lack of fever was reported, and no use of tobacco or vape products was affirmed. - occasional ear pain, and ringing in ears Physical Exam General: Cooperative, healthy appearing, comfortable and no acute distress Orientation/consciousness: Patient oriented x3 Limitations: No limitations Head: Normal to inspection Ears: Hearing grossly normal bilaterally, external ears normal, Nose: Normal external nose present, Normal nares present, nasal discharge present Face and sinus: Normal facial exam and sinuses tender on the right side, particularly maxillary sinus Mouth: Normal oral and palatal mucosa present and moist mucous membranes Throat: Yes tonsils normal, Yes uvula midline. Posterior oropharynx erythema Eyes: Appearance normal, both eyes and all related structures, right eye pain Neck: Normal visual inspection, neck pain present Respiratory: Normal respiratory effort, able to speak in complete sentences, no cough, no respiratory distress, not tachypneic, no tripod positioning and no use of accessory muscles Skin: No rashes or lesions noted Neuro: Patient oriented x3 Extremities: Normal to inspection and Yes no clubbing, cyanosis or edema [facility] Medical History Mild major depression Cervical spondylosis Depression Lumbar pain Right hip pain Left hip pain Severe major depression without psychotic features Vaginal irritation Hypovitaminosis D Anemia Allergic sinusitis Chronic fatigue Anxiety Surgical History No pertinent past surgical history Family History Father Diabetes Hypertension CVD (cardiovascular disease) Stroke Mother Osteoporosis Arthritis 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/hazards: No Cognitive needs: No Hearing needs: No Vision needs: No Female Reproductive History Menstrual Age of Menarche: 12 Review of Systems Const All systems reviewed & are unremarkable except as noted in HPI and below Physical Exam Vital Signs: Last Vital Signs Temp 98.3 F 11/01/24 08:13 Pulse 69 11/01/24 08:13 BP 130/90 H 11/01/24 08:13 Pulse Ox 98 11/01/24 08:13 Oxygen Delivery Method Room Air 11/01/24 08:13 Assessment & Plan Assessment & Plan (1) Sinusitis, acute: Code(s): J01.90 - Acute sinusitis, unspecified Qualifiers: Sinusitis location: maxillary Recurrence: non-recurrent Qualified Code(s): J01.00 - Acute maxillary sinusitis, unspecified Plan: Management will consist of initiating an antibiotic regimen with Augmentin to address possible bacterial sinusitis, given the chronicity and symptom profile. The patient will receive guidance on utilizing nasal spray techniques to maximize delivery to the sinuses. Monitoring for improvement will determine the effectiveness of treatment, with further evaluation warranted if symptoms do not resolve, indicating alternative diagnoses or treatment strategies might be necessary. Patient was informed and verbally consented to the use of an ambient scribe for clinic note documentation during this visit Medications: New amoxicillin-pot clavulanate 875-125 mg 1 tab PO Q12H 14 tabs 0RF Coding Level of Care Code Est Pt Level 3 (57766) Diagnoses Acute non-recurrent maxillary sinusitis J01.00 Sinusitis location: maxillary Recurrence: non-recurrent
== END 2024-11-01 08:35 | disposition home or self-care (01) ==
PROVIDERS: PCP Internal Medicine; Visit Provider Physician Assistant
DX: J01.00 Acute maxillary sinusitis, unspecified (principal)

== ENCOUNTER → 2024-11-01 08:03 | Outpatient (BNVA) | payer OTHER, SELFPAY | PROVIDERS: PCP Internal Medicine ==

== ENCOUNTER → 2024-11-07 15:40 | Outpatient (BNVA) | payer OTHER, SELFPAY | PROVIDERS: PCP Internal Medicine ==

== ENCOUNTER → 2024-11-08 08:14 | Outpatient (REF) | payer OTHER, SELFPAY ==
--- NOTE | 2024-11-08 08:16 | ECG_ITS ---
Test Reason : palpitations Blood Pressure : */* mmHG Vent. Rate : 103 BPM Atrial Rate : 103 BPM P-R Int : 124 ms QRS Dur : 82 ms QT Int : 344 ms P-R-T Axes : 76 54 21 degrees QTcB Int : 450 ms Sinus tachycardia Otherwise normal ECG When compared with ECG of 15-Mar-2022 07:48, T wave amplitude has decreased in Anterior leads Referred By: Rosalie Yoder Electronically Signed By: JUAN NUNN
--- OUTSIDE RECORDS SUMMARY | 2024-11-08 08:18 | XMS_ITS | Encounter Summary ---
Author Organization [facility] Address [address] [place] [address] Phone Care Team Providers Care French Pastry Cook Name Role Phone Naima Abraham NP Primary Care Provider Alvino harrell Encounter Details Date Type Department Care Team (Late st Contact Info) Description 05/04/2017 Conversion Encounter [facility] - [address] [address] Social History Tobacco Use Types Packs/Day Years [...] on filedocumented in this encounter Care Teams French Pastry Cook Relationship Specialty Start Date End Date Naima Abraham NP PCP - General 04/28/17 02/22/23 documented as of this encounter
--- OUTSIDE RECORDS SUMMARY | 2024-11-08 08:18 | XMS_ITS | Clinical Summary ---
Author Organization [facility] Address [address] [place] [address] Phone Care Team Providers Care Golf Course Equipment Operator Name Role Phone Unavailable Primary Care Provider [...]
== END ==
LOC: HO.CARD 08:14
PROVIDERS: PCP Internal Medicine; Visit Provider Internal Medicine
DX: R00.2 Palpitations (principal)
CPT/HCPCS: 93005; 93225

== ENCOUNTER → 2024-11-08 08:16 | Outpatient (BNV) | payer OTHER, SELFPAY | PROVIDERS: PCP Internal Medicine; Visit Provider Internal Medicine | DX: R00.0 Tachycardia, unspecified (principal) | CPT/HCPCS: 93010; 93227 ==

== ENCOUNTER 2024-11-08 13:49 | Outpatient (REF) | payer OTHER, SELFPAY ==
--- NOTE | ~2024-11-08 | US_ITS ---
EXAMINATION: US PELVIS TRANSABDOMINAL AND TRANSVAGINAL HISTORY: R10.2 - Pelvic and perineal pain COMPARISON: Comparison is made with the prior examination dated 10/25/2023. TECHNIQUE: Transabdominal and endovaginal real-time 2D atkinson-scale ultrasound was performed. FINDINGS: Uterus: The uterus is normal in size, measuring 8.0 x 3.6 x 4.8 cm. Myometrium has a normal echotexture. No fibroids are identified. There are prominent periuterine vessels. Endometrium: The endometrial stripe measures 5 mm in thickness. Right ovary: The right ovary measures 2.7 x 1.4 x 1.7 cm. The right ovary is normal in size and echotexture. Left ovary: The left ovary measures 2.0 x 1.3 x 2.0 cm. The left ovary is normal in size and echotexture. There is a 5 mm echogenic focus within the left ovary which could represent a calcification or fat within a dermoid. Pelvic fluid: none. US/US pelvic and transvaginal IMPRESSION: 1. Prominent periuterine vessels which can be seen in the setting of pelvic congestion syndrome. Clinical correlation is recommended. 2. 5 mm echogenic focus in the left ovary which could represent a calcification or fat within a dermoid. This could be further evaluated with CT or MRI if desired. Electronically signed by: Carlos Chao MD 11/11/2024 09:25 AM [facility]
--- OUTSIDE RECORDS SUMMARY | 2024-11-08 14:14 | XMS_ITS | Clinical Summary ---
Author Organization [facility] Address [address] [place] [address] Phone Care Team Providers Care Electronics Maintenance Technician Name Role Phone Unavailable Primary Care Provider [...]
--- OUTSIDE RECORDS SUMMARY | 2024-11-08 14:14 | XMS_ITS | Encounter Summary ---
Author Organization [facility] Address [address] [place] [address] Phone Care Team Providers Care Signaler Name Role Phone Naima Abraham NP Primary Care Provider Alvino harrell Encounter Details Date Type Department Care Team (Late st Contact Info) Description 05/04/2017 Conversion Encounter [facility] - [address] [address] Social History Tobacco Use Types Packs/Day Years [...] on filedocumented in this encounter Care Teams Signaler Relationship Specialty Start Date End Date Naima Abraham NP PCP - General 04/28/17 02/22/23 documented as of this encounter
== END 2024-11-08 13:50 | disposition home or self-care (01) ==
LOC: HO.US 13:49
PROVIDERS: PCP Internal Medicine; Visit Provider Obstetrics & Gynecology
DX: R10.2 Pelvic and perineal pain (principal)
CPT/HCPCS: 76830; 76856

== ENCOUNTER → 2024-11-08 13:50 | Outpatient (BNV) | payer OTHER, SELFPAY | PROVIDERS: PCP Internal Medicine; Visit Provider Radiology Diagnostic Radiology | DX: R10.2 Pelvic and perineal pain (principal) | CPT/HCPCS: 76830; 76856 ==

== ENCOUNTER 2024-12-16 08:00 | Outpatient (REF) | payer OTHER, SELFPAY ==
[2024-12-16 11:51] LABS: Influenza A PCR NEGATIVE (Negative); Influenza B PCR NEGATIVE (Negative); Resp Syncy Virus RNA Qual PCR NEGATIVE (Negative); SARS COV2 PCR INHOUSE NEGATIVE (Negative)
== END 2024-12-16 08:01 | disposition home or self-care (01) ==
LOC: HO.LAB 08:00
PROVIDERS: Nurse Practitioner Family; PCP Internal Medicine
DX: J06.9 Acute upper respiratory infection, unspecified (principal)
CPT/HCPCS: 0241U; 87880

== ENCOUNTER 2024-12-16 08:00 | Outpatient (AMB) | payer OTHER, SELFPAY ==
[2024-12-16 08:12] VITALS: BP 110/76; PULSE 112; TEMP 37; O2SAT 98
--- NOTE | 2024-12-16 08:12 | AM.OFFWIN_ITS ---
Intake Vital Signs 12/16/24 08:12 Weight 134 lb BP 110/76 Blood Pressure Location Lt brachial Position Sitting Pulse 112 H Pulse Source Pulse Oximeter Temp 98.6 F Temp Source Oral Pulse Oximetry (%) 98 Oxygen Delivery Method Room Air Intake Visit Reasons: EP-sore throat, nasal drip, headaches, earache Intake Note: Patient here for sore throat, post nasal drip, headaches, bilat ear pain which started Monday. Patient Tobacco Use Status: Never used Tobacco Allergies sertraline Adverse Reaction (Intermediate, Verified 12/16/24 08:22) nausea, loss of appetite Do you need a note to return to daycare/school/sports/work: No HPI HPI Comments History of Present Illness Details 34 y/o female patient who presents to [facility] walk in clinic with c/ URI symptoms. Reports sore-throat, runny nose, Ear ache that started Last week Monday. Reports Sore-throat got worse this past . [facility] Medical History (Updated 12/16/24 @ 08:37 by Miriam Littlejohn NP) Acute streptococcal pharyngitis Acute respiratory disease Mild major depression Cervical spondylosis Depression Lumbar pain Right hip pain Left hip pain Severe major depression without psychotic features Vaginal irritation Hypovitaminosis D Anemia Allergic sinusitis Chronic fatigue Anxiety Surgical History No pertinent past surgical history Family History Father Diabetes Hypertension CVD (cardiovascular disease) Stroke Mother Osteoporosis Arthritis 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/hazards: No Cognitive needs: No Hearing needs: No Vision needs: No Female Reproductive History Menstrual Age of Menarche: 12 Review of Systems Const All systems reviewed & are unremarkable except as noted in HPI and below Physical Exam Vital Signs: Last Vital Signs Temp 98.6 F 12/16/24 08:12 Pulse 112 H 03/31/25 08:12 BP 110/76 12/16/24 08:12 Pulse Ox 98 12/16/24 08:12 Oxygen Delivery Method Room Air 12/16/24 08:12 Const General: no acute distress; No comfortable Orientation/consciousness: patient oriented x3 HEENT Head: Yes normocephalic Ears: external ears normal and TM abnormal with fluid behind the TM bilateral General nose exam: Abnormal mucous membranes and turbinates present boggy and erythematous Face and sinus: Yes sinuses nontender Mouth: moist mucous membranes and Abnormal oral and palatal mucosa present erythematous Throat: Yes uvula midline and Yes abnormal tonsil (Tonsil enlarged +3) Resp Effort & Inspection: normal respiratory effort and able to speak in complete sentences Auscultation: clear to auscultation bilaterally Cardio Rhythm: regular rhythm Heart sounds: S1 normal heart sound present and S2 normal heart sound present Neuro General: patient oriented x3 Results AMB Rapid Strep AMB Rapid Strep Positive Last Edit by ROYER Garcia on 12/16/24 08:35 Assessment & Plan Assessment & Plan (1) Acute respiratory disease: Code(s): J06.9 - Acute upper respiratory infection, unspecified Plan: Ordered SARs. (2) Acute streptococcal pharyngitis: Code(s): J02.0 - Streptococcal pharyngitis Plan: Rapid Strept Positive. Acetaminophen for pain relief Warm fluids with Honey and Lexie. Orders: Orders AMB Rapid Strep Screen Today Z13.9 - Encounter for screening, unspecified SARS-CoV2/FLU/RSV Today J06.9 - Acute upper respiratory infection, unspecified Medications: New penicillin V potassium 500 mg PO BID 10 days 20 tabs 0RF J02.0 - Streptococcal pharyngitis prednisone 50 mg PO DAILY 5 days 5 tabs 0RF J02.0 - Streptococcal pharyngitis Coding Level of Care Code Est Pt Level 4 (43695) Diagnoses Acute respiratory disease J06.9 Acute streptococcal pharyngitis J02.0 Time Spent (min) 20
== END 2024-12-16 09:19 | disposition home or self-care (01) ==
PROVIDERS: PCP Internal Medicine; Visit Provider Nurse Practitioner Family
DX: J06.9 Acute upper respiratory infection, unspecified (principal); J02.0 Streptococcal pharyngitis; Z13.9 Encounter for screening, unspecified

== ENCOUNTER 2024-12-30 14:46 | Outpatient (AMB) | payer OTHER, SELFPAY ==
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
--- OUTSIDE RECORDS SUMMARY | 2024-12-30 17:17 | XMS_ITS | Data Portability ---
Author Organization [facility], [address] Address [address] [place] [address] Care Team Providers Care Wool Puller Name Role Phone AMELIA SALINAS Primary Care Provider [phone] Assessment No assessment recorded. Plan of Treatment Reminders Order Date Submit Date Provider Last Modified By Organization Details Last Modified Time Details Appointments None recorded. Lab rapid strep group A, throat 2021 [facility], [address] [place] [address], [id number], 17:20:14 culture, respiratory 2021 [place] [facility], [address] [place] [address], [id number], 12:06:37 Referral None recorded. Procedures None recorded. Surgeries None recorded. Imaging None recorded. Medication Orders amoxicillin 500 mg capsule 2021 [id number], [address] [place], [address], 17:20:16 Patient TargetsNo targets recorded. Patient Instructions Encounter Date Encounter Id Patient Instructions Last Modified By Organization Details Last Modified Time 08/21/2022 [id number] sore throat: car e instructions [id number] Not available 08/21/2022 17:20:14 Based on your [...] 6. Severe Headache Thank you for using [facility] today, please feel free to contact our office if you have any questions or concerns. Not available 08/21/2022 17:18:51 Reason for Referral None Reported. Results Created Date Observation Date Name Description Value Unit Range Abnormal Flag Note LastModifiedBy Organization Detail LastModifiedTime 08/21/20 22 08/24/2022 UPPER RESPI RATOR Y CULTU RE upper respiratory culture Final report Not Available [facility] ([facility]) [address] [facility], [place], [address], 08/24/2022 12:06:37 08/21/20 22 08/24/2022 UPPER RESPI RATOR Y CULTU RE result 1 Commen t Routi ne respi rator y bird Not Available [facility] ([facility]) [address] [facility], [place], [address], 08/24/2022 12:06:37 08/21/20 22 08/21/2022 rapid strep group A, throa t Unknown Analyte Normal = Negati ve Not Available [address] [place] [address], [phone], 08/21/2022 16:32:58 08/21/20 22 08/21/2022 rapid strep group A, throa t Unknown Analyte negati ve Not Available [address] [place] [address], [phone], 08/21/2022 16:32:58 Result Notes None recorded. Problems Name Problem SNOMED Code Status Onset Date Resolution Date Notes Provider Name and Address Organization Details Recorded Time Anxiety 98374261 Active KRISTI MACHUCA RA null, [place] - [facility] 2 16:39:40 Migraine 74273958 Active KRISTI CRUZ-MICKEY RA null, [place] - [facility] 2 16:39:52 Depressive disorder 67200424 Active KRISTI CRUZ-MICKEY RA null, [place] - [facility] 2 16:40:08 Eczema 41034572 Active KRISTI CRUZ-MICKEY RA null, [place] - [...] Updated DateTime 2 160.02 cm 22.1 kg/m2 79360.0 5 g 5 16 /min 96 % [...] SNOMED-CT Code Diagnosis ICD10 Code Diagnosis Note [id number] [address] [address] 10/19/2016 20:03:59 10/19/2016 20:29:15 [id number] [address] [address] 07/22/2018 18:14:27 07/22/2018 19:06:[id number] [address] 06/12/2019 18:57:57 06/12/2019 19:32:43 [id number] [address] [facility] [address] 11/02/2016 12:07:08 11/02/2016 12:46:34 [id number] [facility]IAS BARRAZA [address] [facility] [place] [address] 08/21/2022 15:12:44 08/21/2022 17:23:48 Acute pharyngitis [id number] J02.9 Health Concerns Section Related Observation LastModified by Organization Detai ls LastModified Time None Recorded Concern Status LastModified by Organization Details LastModified Time None Recorded Advance Directives Directive None Recorded Payers Encounter Date Sequence Insurance Name Policy Number Policy Pressley Covered Member ID Pressley Member ID Guarantor Name 10/19/2016 1 [employer] [id number] Vale Cain [id number] Vale Cain 11/02/2016 1 [employer] [id number] 3 Vale Cain [id number] Vale Cain 07/22/2018 1 [employer] [id number] 3 Vale Cain [id number] Vale Cain 06/12/2019 1 [employer] [id number] 3 Vale Cain [id number] Vale Cain 08/21/2022 1 [employer] [id number] 3 Vale Cain [id number] Vale Cain Notes Date Note Type Note [...] Factors:OTC medication ;exposed to Strep ELIAS BARRAZA [facility] [place], [phone], [place] - [facility] 08/21/2022 17:24:11 OBGyn Episode No OBEpisode recorded.
--- OUTSIDE RECORDS SUMMARY | 2024-12-30 17:17 | XMS_ITS | Clinical Summary ---
Author Organization [facility] Address [address] [place] [phone] Phone Care Team Providers Care Title I Assistant Name Role Phone Unavailable Primary Care Provider [...]
--- OUTSIDE RECORDS SUMMARY | 2024-12-30 17:17 | XMS_ITS | Encounter Summary ---
Author Organization [facility] Address [address] [place] [address] Phone Care Team Providers Care Captain Waiter Name Role Phone Naima Abraham NP Primary Care Provider Alvino harrell Encounter Details Date Type Department Care Team (Late st Contact Info) Description 05/04/2017 Conversion Encounter [facility] - [address] [address] Social History Tobacco Use Types Packs/Day Years [...] on filedocumented in this encounter Care Teams Captain Waiter Relationship Specialty Start Date End Date Naima Abraham NP PCP - General 04/28/17 02/22/23 documented as of this encounter
== END 2024-12-30 16:55 | disposition home or self-care (01) ==
LOC: HO.HOP 14:46
PROVIDERS: PCP Internal Medicine; Visit Provider Clinical Nurse Specialist Psychiatric/Mental Health
DX: F33.1 Major depressive disorder, recurrent, moderate (principal); F41.1 Generalized anxiety disorder
CPT/HCPCS: 90792

== ENCOUNTER → 2024-12-30 14:46 | Outpatient (BNVA) | payer OTHER, SELFPAY | PROVIDERS: PCP Internal Medicine; Visit Provider Clinical Nurse Specialist Psychiatric/Mental Health | DX: F33.1 Major depressive disorder, recurrent, moderate (principal); F41.1 Generalized anxiety disorder | CPT/HCPCS: 90792 ==

== ENCOUNTER 2025-01-09 11:50 | Outpatient (REF) | payer OTHER, SELFPAY ==
--- OUTSIDE RECORDS SUMMARY | 2025-01-09 14:32 | XMS_ITS | Encounter Summary ---
Author Organization [facility] Address [address] [place] [address] Phone Care Team Providers Care Manager Engine Name Role Phone Naima Abraham NP Primary Care Provider Alvino harrell Encounter Details Date Type Department Care Team (Late st Contact Info) Description 05/04/2017 Conversion Encounter [facility] - [address] [address] Social History Tobacco Use Types Packs/Day Years [...] on filedocumented in this encounter Care Teams Manager Engine Relationship Specialty Start Date End Date Naima Abraham NP PCP - General 04/28/17 02/22/23 documented as of this encounter
--- OUTSIDE RECORDS SUMMARY | 2025-01-09 14:32 | XMS_ITS | Clinical Summary ---
Author Organization [facility] Address [address] [place] [address] Phone Care Team Providers Care Non Cdl Driver Name Role Phone Unavailable Primary Care Provider [...]
[2025-01-09 16:44] LABS: Bacterial Vaginosis PCR NEGATIVE (Negative); Candida Group PCR NOT DETECTED (Not Detect); Candida glab krusei PCR NOT DETECTED (Not Detect); Trichomonas vaginalis PCR NOT DETECTED (Not Detect)
[2025-01-09 17:17] LABS: CT PCR NOT DETECTED (Not Detect.); NG PCR NOT DETECTED (Not Detect.)
== END 2025-01-09 11:51 | disposition home or self-care (01) ==
LOC: HO.LNP 11:50
PROVIDERS: PCP Internal Medicine; Visit Provider Obstetrics & Gynecology
DX: N76.0 Acute vaginitis (principal)
CPT/HCPCS: 81515; 87491; 87591

== ENCOUNTER 2025-01-09 11:50 | Outpatient (AMB) | payer OTHER, SELFPAY ==
[2025-01-09 11:55] VITALS: BP 108/76; BMI 23.7
--- NOTE | 2025-01-09 11:55 | MHC.OFFVIS ---
Vital Signs 01/09/25 11:55 Height 5 ft 3 in Weight 134 lb BMI 23.7 BP 108/76 Intake Visit Reasons: u/s results/Annual Field Spec Required: No Information Interpreted: non-clinical & clinical Electronics Computer Mechanic: Electronics Computer Mechanic Present (Yaima GRACE) Accompanied by: Self / Same As Patient Allergies sertraline Adverse Reaction (Intermediate, Verified 01/09/25 11:59) nausea, loss of appetite Is last menstrual period known: Yes Last menstrual period: 12/17/24 HPI Comments Details: Presenting for annual exam. Complaining of vulvovaginal itching and discharge but not today Last Pap/HPV was negative in 10/11 In addition, the patient is here for follow-up regarding her pelvic pain. The patient is doing well. The following workup was done so far: GC/CT negative. Last visit urine test was negative. Last visit urine dip was negative. Pelvic ultrasound showed the following: IMPRESSION: 1. Prominent periuterine vessels which can be seen in the setting of pelvic congestion syndrome. Clinical correlation is recommended. 2. 5 mm echogenic focus in the left ovary which could represent a calcification or fat within a dermoid. This could be further evaluated with CT or MRI if desired. [facility] Medical History Acute streptococcal pharyngitis Acute respiratory disease Mild major depression Cervical spondylosis Depression Lumbar pain Right hip pain Left hip pain Severe major depression without psychotic features Vaginal irritation Hypovitaminosis D Anemia Allergic sinusitis Chronic fatigue Anxiety Surgical History No pertinent past surgical history Family History Father Diabetes Hypertension CVD (cardiovascular disease) Stroke Mother Osteoporosis Arthritis 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/hazards: No Cognitive needs: No Hearing needs: No Vision needs: No Female Reproductive History Menstrual Age of Menarche: 12 Duration of menses: 6-7 days Date of last menstrual period: 12/17/24 control method: pills Date of last pap smear: 10/05/23 Review of Systems Const All systems reviewed & are unremarkable except as noted in HPI and below Card Reports as per HPI Resp Reports as per HPI GI Reports as per HPI and Reports no additional complaints Reports as per HPI Physical Exam Vital Signs: Last Vital Signs BP 108/76 01/09/25 11:55 BMI result Body Mass Index 23.7 Const General: cooperative, healthy appearing and comfortable Chest Chest palpation & inspection: normal inspection of the chest and normal palpation of entire chest wall Breast/axilla inspection: normal inspection of the breasts and normal inspection of the axillae Breast/axilla palpation: normal palpation of the breasts, normal palpation of the axillae and no axillary lymphadenopathy Resp Effort & Inspection: normal respiratory effort Auscultation: clear to auscultation bilaterally Percussion: percussion normal Cardio Palpation: normal PMI Rate: regular rate Rhythm: regular rhythm Heart sounds: no murmurs and no rubs Peripheral pulses: Peripheral pulses 2+ throughout GI Inspection: Yes normal to inspection Palpation (GI): Soft to palpation, nontender, no guarding, not rigid and No hepatosplenomegaly present Percussion: Yes normal to percussion Auscultation: normal bowel sounds Rectal Exam - Female: deferred General: Yes bladder normal to palpation External Female Exam: No lesion Speculum Exam - Vagina: normal appearance of the vagina, normal palpation, normal vaginal discharge and not erythematous Speculum Exam - Cervix: normal appearance of the cervix and normal palpation Bimanual exam- vagina & uterus: normal bimanual exam, normal palpation, uterine size normal, bladder normal to palpation, consistency normal and normal palpation Bimanual Exam- Adnexa, other: normal adnexae, no masses and no tenderness Assessment & Plan Assessment & Plan (1) Pelvic pain: Code(s): R10.2 - Pelvic and perineal pain Category: Medical Plan: Discussed with the patient the results of the workup done including negative GC/chlamydia, urine dip, urine test and pelvic ultrasound. Differential diagnosis of real estate leasing manager causes that have not be ruled out yet include but not limited to pelvic congestion syndrome, endometriosis, pelvic adhesions , or others. Recommended for the patient to see her PCP for further workup for non real estate leasing manager causes; if the all the results are negative and the patient's pelvic pain is persistent, instructions given to patient to call back for further testing. Meanwhile, instructions were given the patient to go to emergency room or call in case of fever above 100.4, heavy vaginal bleeding, persistence or worsening of her pelvic pain. All questions answered, the patient verbalized understanding. (2) Calcification of ovary: Code(s): N83.8 - Other noninflammatory disorders of ovary, fallopian tube and broad ligament Category: Medical Plan: Discussed with the patient the complex ovarian cyst by ultrasound. Discussed with the patient the Ultrasound findings, the main limitation of transvaginal ultrasonography alone as a diagnostic tool to distinguish benign from malignant masses relates to its lack of specificity and low positive predictive value for cancer. The differential diagnosis discussed with the patient includes the following but not limited to: benign and malignant gynecological and non-gynecological causes. Discussed with the patient the results of ultrasound, pelvic MRI ordered as the next step in the evaluation of calcification. Instructions given the patient to schedule pelvic MRI and a follow-up appointment within 2 weeks (3) Vulvovaginitis: Code(s): N76.0 - Acute vaginitis Category: Medical Plan: GC/CT with BV panel collected will check the results and treat accordingly. (4) Well woman exam: Code(s): Z01.419 - Encounter for gynecological examination (general) (routine) without abnormal findings Category: Medical Plan: Cotesting not indicated this year. Counseled the patient about the recommended dietary allowance of 1000 mg of Calcium & 600 IU of vitamin D. The patient was instructed to perform monthly self-breast exams and to schedule an annual exam in a year; All questions answered and the patient verbalized understanding. Instructed the patient to schedule annual exam in a year Orders: Orders MR pelvis wo/w con Today N83.8 - Other noninflammatory disorders of ovary, fallopian tube and broad ligament Coding Level of Care Code Est Pt Level 3 (01748) Est Pt Prev Care 18-39y(12262) Diagnoses Pelvic pain R10.2 Calcification of ovary N83.8 Vulvovaginitis N76.0 Well woman exam Z01.419
--- OUTSIDE RECORDS SUMMARY | 2025-01-09 14:12 | XMS_ITS | Clinical Summary ---
Author Organization [facility] Address [address] [place] [address] Phone Care Team Providers Care Environmental Scientist Name Role Phone Unavailable Primary Care Provider [...]
--- OUTSIDE RECORDS SUMMARY | 2025-01-09 14:12 | XMS_ITS | Encounter Summary ---
Author Organization [facility] Address [address] [place] [address] Phone Care Team Providers Care Transaction Processor Name Role Phone Naima Abraham NP Primary Care Provider Alvino harrell Encounter Details Date Type Department Care Team (Late st Contact Info) Description 05/04/2017 Conversion Encounter [facility] - [address] [address] Social History Tobacco Use Types Packs/Day Years [...]
--- OUTSIDE RECORDS SUMMARY | 2025-01-09 14:12 | XMS_ITS | Data Portability ---
Author Organization [facility] [address] Address [address] [place] [address] Care Team Providers Care Lithograph Printer Name Role Phone AMELIA SALINAS Primary Care Provider Assessment No assessment recorded. Plan of Treatment Reminders Order Date Submit Date Provider Last Modified By Organization Details Last Modified Time Details Appointments None recorded. Lab rapid strep group A, throat 2021 [id number], [address] [place] [address], [id number], 17:20:14 culture, respiratory 2021 LAWAI [facility], [address] [place] [address], [id number], 12:06:37 Referral None recorded. Procedures None recorded. Surgeries None recorded. Imaging None recorded. Medication Orders amoxicillin 500 mg capsule 2021 [id number], [address] [place], [address], 17:20:16 Patient TargetsNo targets recorded. Patient Instructions Encounter Date Encounter Id Patient Instructions Last Modified By Organization Details Last Modified Time 08/21/2022 [id number] sore throat: car e instructions [email or web address] Not available 08/21/2022 17:20:14 Based on your [...] 6. Severe Headache Thank you for using [facility] today, please feel free to contact our office if you have any questions or concerns. Not available 08/21/2022 17:18:51 Reason for Referral None Reported. Results Created Date Observation Date Name Description Value Unit Range Abnormal Flag Note LastModifiedBy Organization Detail LastModifiedTime 08/21/20 22 08/24/2022 UPPER RESPI RATOR Y CULTU RE upper respiratory culture Final report Not Available [facility] ([facility]) [address] [facility], [place], [address], 08/24/2022 12:06:37 08/21/20 22 08/24/2022 UPPER RESPI RATOR Y CULTU RE result 1 Commen t Routi ne respi rator y bird Not Available [facility] ([facility]) [address] [facility], [place], [address], 08/24/2022 12:06:37 08/21/20 22 08/21/2022 rapid strep group A, throa t Unknown Analyte Normal = Negati ve Not Available [address] [place] [address], [phone], 08/21/2022 16:32:58 08/21/20 22 08/21/2022 rapid strep group A, throa t Unknown Analyte negati ve Not Available [address] [place] [address], [phone], 08/21/2022 16:32:58 Result Notes None recorded. Problems Name Problem SNOMED Code Status Onset Date Resolution Date Notes Provider Name and Address Organization Details Recorded Time Anxiety 04915156 Active KRISTI MACHUCA RA null, [place] - [facility] 2 16:39:40 Migraine 24135266 Active KRISTI CRUZ-MICKEY RA null, [place] - [facility] 2 16:39:52 Depressive disorder 37519898 Active KRISTI CRUZ-MICKEY RA null, [place] - [facility] 2 16:40:08 Eczema 97451214 Active KRISTI CRUZ-MICKEY RA null, PA - [...] Updated DateTime 2 160.02 cm 22.1 kg/m2 33794.0 5 g 5 16 /min 96 % [...] SNOMED-CT Code Diagnosis ICD10 Code Diagnosis Note [id number] [address] [address] 10/19/2016 20:03:59 10/19/2016 20:29:15 [id number] [address] [address] 07/22/2018 18:14:27 07/22/2018 19:06:[id number] [address] [address] 06/12/2019 18:57:57 06/12/2019 19:32:43 [id number] [address] [facility] [address] 11/02/2016 12:07:08 11/02/2016 12:46:34 [id number] [facility] [address] [facility] [place] [address] 08/21/2022 15:12:44 08/21/2022 17:23:48 Acute pharyngitis 851457379 J02.9 Health Concerns Section Related Observation LastModified by Organization Detai ls LastModified Time None Recorded Concern Status LastModified by Organization Details LastModified Time None Recorded Advance Directives Directive None Recorded Payers Encounter Date Sequence Insurance Name Policy Number Policy Pressley Covered Member ID Pressley Member ID Guarantor Name 10/19/2016 1 [employer] [id number] Vale Cain [id number] Vale Cain 11/02/2016 1 [employer] [id number] Vale Cain [id number] Vale Cain 07/22/2018 1 [employer] [id number] Vale Cain [id number] Vale Cain 06/12/2019 1 [employer] [id number] 3 Vale Cain [id number] Vale Cain 08/21/2022 1 [employer] [id number] 3 Vale Cain [id number] Vale Cain Notes Date Note Type [...] Factors:OTC medication ;exposed to Strep [facility]RA[facility] [place], [address], [place] - [facility] 08/21/2022 17:24:11 OBGyn Episode No OBEpisode recorded.
== END 2025-01-09 12:15 | disposition home or self-care (01) ==
LOC: HO.HWS 11:50
PROVIDERS: PCP Internal Medicine; Visit Provider Obstetrics & Gynecology
DX: Z01.419 Encounter for gynecological examination (general) (routine) without abnormal findings (principal); R10.2 Pelvic and perineal pain; N83.8 Other noninflammatory disorders of ovary, fallopian tube and broad ligament; N76.0 Acute vaginitis
CPT/HCPCS: 99213; 99395; 99459

== ENCOUNTER 2025-01-16 14:08 | Outpatient (AMB) | payer OTHER, SELFPAY ==
--- NOTE | 2025-01-16 14:10 | MHC.PC.OV ---
Vital Signs 01/16/25 14:11 Height 5 ft 3 in Weight 135 lb BMI 23.9 BP 130/78 Blood Pressure Location Lt brachial Position Sitting Intake Visit Reasons: discuss hip pain Transfer Engineer Required: No Accompanied by: Self / Same As Patient Allergies sertraline Adverse Reaction (Intermediate, Verified 01/16/25 14:23) nausea, loss of appetite Medication List - Last Reconciled 01/16/25 by Rosalie Yoder MD buspirone 10 mg PO BID cetirizine 10 mg PO DAILY PRN 90 days cholecalciferol (vitamin D3) 25 mcg PO DAILY 90 days clonazepam 1 mg PO BEDTIME PRN 30 days desogestrel-ethinyl estradiol 0.15-0.03 mg (Apri) 1 tab PO DAILY 3 months fluticasone propionate 50 mcg/actuation (Flonase Allergy Relief) 1 spray intranasal DAILY 30 days hydroxyzine HCl 25 mg PO BEDTIME PRN 90 days methocarbamol 500 mg PO TID PRN Tobacco use date assessed: 10/15/24 Dental Screening Dental Screen Date: 10/15/24 HPI HPI Comments History of Present Illness Details The patient is a 34-year-old female presenting with concerns primarily related to intermittent hip pain and gastrointestinal issues. She reports intermittent right hip pain that occasionally presents as a popping sensation and worsens around her menstrual cycle, though it is not consistently problematic. Previous physical therapy has been undertaken for what was diagnosed as Pelvic Congestive Syndrome. The patient's gastrointestinal complaints have persisted since a recent course of antibiotics, reporting chronic bloating and difficulty with bowel movements. Previously well-tolerated foods are now contributing to her discomfort. The patient also has a history of mild major depression and anxiety, which currently appear to be stable. REPLACED BY [facility] Medical History (Updated 01/16/25 @ 14:29 by Rosalie Yoder MD) Acute streptococcal pharyngitis Acute respiratory disease Mild major depression Cervical spondylosis Depression Lumbar pain Right hip pain Left hip pain Severe major depression without psychotic features Vaginal irritation Hypovitaminosis D Anemia Allergic sinusitis Chronic fatigue Anxiety Surgical History No pertinent past surgical history Family History Father Diabetes Hypertension CVD (cardiovascular disease) Stroke Mother Osteoporosis Arthritis 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/hazards: No Cognitive needs: No Hearing needs: No Vision needs: No Female Reproductive History Menstrual Age of Menarche: 12 Questionnaire Thrive Questionnaire Date Thrive assessed: 10/13/24 I am a: Patient What is your living situation today?: I have a steady place to live Within the past 12 months, did the food you bought not last and you didn't have the money to get more?: Never true Within the past 12 months, did you worry whether your food would run out before you got money to buy more?: Never true Do you have trouble paying for medicines?: No Do you have trouble getting transportation to medical appointments?: No Do you have trouble paying your heating and electricity bill?: No Do you have trouble taking care of your child, family member or friend?: No Do you have trouble with day-to-day activities such as bathing, preparing meals, shopping, managing finances, etc.?: No Are you currently unemployed and looking for a job?: No Are you interested in more education?: No Please select the resources that you would like help with: None Currently or been in a relationship where the following occur: No concerns reported THRIVE Score: 0 JOLIE-7 AMB Questionnaire JOLIE-7 Date JOLIE - 7 assessed: 10/15/24 Source: Developed by Drs. Carlos Ayala, Hellen Burrell, Omar Frankel and colleagues, with an educational bernice from [employer]. Review of Systems Const All systems reviewed & are unremarkable except as noted in HPI and below Card Denies chest pain at rest, Denies chest pain with activity, Denies edema, Denies irregular heart rhythm, Denies claudication, Denies dyspnea, Denies dyspnea on exertion, Denies orthopnea, Denies paroxysmal nocturnal dyspnea and Denies slow heart rate Resp Denies cough, Denies dyspnea and Denies dyspnea on exertion Musc Reports arthralgias Physical exam (Primary Care) Vital Signs: Last Vital Signs BP 130/78 01/16/25 14:11 BMI result Body Mass Index 23.9 Tobacco/Smoking Status: Tobacco use Status Tobacco use date assessed 10/15/24 01/16/25 14:18 Patient Tobacco Use Status Never used Tobacco 01/16/25 14:18 e-Cigarette/Vaping Use Never Used 01/16/25 14:18 Thrive Assessment: Date of Thrive Assessment Date Thrive assessed 10/13/24 01/16/25 14:18 Currently or been in a relationship where the following occur: No concerns reported Resp Effort & Inspection: normal respiratory effort Auscultation: clear to auscultation bilaterally Cardio Jugular venous distension: no JVD Rate: regular rate Rhythm: regular rhythm Heart sounds: S1 normal heart sound present and S2 normal heart sound present Back/Spine/Pelvis Pelvis: sciatic notch tenderness on the right Extrem General: Yes full ROM Coding Level of Care Code Est Pt Level 4 (60816) Complex EM visit Add On G2211 Diagnoses Right hip pain M25.551 Abdominal bloating R14.0 JOLIE (generalized anxiety disorder) F41.1 Moderate recurrent major depression F33.1 Time Spent (min) 22 Assessment & Plan Assessment & Plan (1) Right hip pain: Code(s): M25.551 - Pain in right hip Category: Medical (2) Abdominal bloating: Code(s): R14.0 - Abdominal distension (gaseous) Category: Medical (3) JOLIE (generalized anxiety disorder): Code(s): F41.1 - Generalized anxiety disorder Category: Medical (4) Moderate recurrent major depression: Code(s): F33.1 - Major depressive disorder, recurrent, moderate Category: Medical Plan I plan to order X-rays for both hips to evaluate the presenting symptoms of hip pain and to make a referral to gastroenterology for the gastrointestinal complaints experienced following the antibiotics. For her hip pain, further investigation with imaging will provide clarity on any joint issues. A referral to [facility] will concentrate on evaluating her ongoing gastrointestinal symptoms. Current medications for depression and anxiety will be continued, as these appear stable. Recommendations for dietary adjustments aligned with her symptoms were discussed, and it was emphasized that follow-up would be essential. Patient was informed and verbally consented to the use of an ambient scribe for clinic note documentation during this visit. I discussed with the patient her hip pain and gastrointestinal symptoms. I explained the rationale for ordering X-rays to investigate hip joint concerns further and the importance of a referral to gastroenterology to address her digestive complaints since the symptoms follow antibiotic treatment. We also talked about continuing her current regimen for depression and anxiety, acknowledging their stability. I noted the need to address her dietary habits in light of her gastrointestinal symptoms and provided guidance for the same. We concluded with an agreement on the plan and the necessity for follow-up to ensure symptoms' resolution and discuss further management based on the results. Orders: Orders XR hip LT min 2V Today M25.552 - Pain in left hip XR hip RT min 2V Today M25.551 - Pain in right hip Referrals Gastroenterology Referral R14.0 - Abdominal distension (gaseous) Patient Instructions: - Follow through with prescribed hip X-ray imaging. - Attend referred appointment at [facility]. - Continue all current medications unless advised otherwise. - Observe dietary influence on gastrointestinal symptoms. Adjust diet as needed based on tolerance. - Schedule a follow-up appointment to review progress and test outcomes. - Seek medical attention if symptoms worsen or new symptoms arise.
[2025-01-16 14:11] VITALS: BP 130/78; BMI 23.9
--- OUTSIDE RECORDS SUMMARY | 2025-01-16 16:19 | XMS_ITS | Data Portability ---
Author Organization [facility]son [facility], [address] Address [address] [place] [address] Care Team Providers Care Allocations Clerk Name Role Phone AMELIA SALINAS Primary Care Provider Assessment No assessment recorded. Plan of Treatment Reminders Order Date Submit Date Provider Last Modified By Organization Details Last Modified Time Details Appointments None recorded. Lab rapid strep group A, throat 2021 21005[facility], [address] [place] [address], [phone], 17:20:14 culture, respiratory 2021 [place] [facility], [address] [place] [address], [address], 12:06:37 Referral None recorded. Procedures None recorded. Surgeries None recorded. Imaging None recorded. Medication Orders amoxicillin 500 mg capsule 2021 [facility] #[id number], [address] [place], [address], 17:20:16 Patient TargetsNo targets recorded. Patient Instructions Encounter Date Encounter Id Patient Instructions Last Modified By Organization Details Last Modified Time 08/21/2022 [id number] sore throat: car e instructions [email or web address] Not available 08/21/2022 17:20:14 Based on your [...] 6. Severe Headache Thank you for using [employer] today, please feel free to contact our office if you have any questions or concerns. [email or web address] Not available 08/21/2022 17:18:51 Reason for Referral None Reported. Results Created Date Observation Date Name Description Value Unit Range Abnormal Flag Note LastModifiedBy Organization Detail LastModifiedTime 08/21/20 22 08/24/2022 UPPER RESPI RATOR Y CULTU RE upper respiratory culture Final report Not Available [facility] ([facility]) [address] [facility], [place], [address], 08/24/2022 12:06:37 08/21/20 22 08/24/2022 UPPER RESPI RATOR Y CULTU RE result 1 Commen t Routi ne respi rator y bird Not Available [facility] ([facility]) [address] [facility], [place], [address], 08/24/2022 12:06:37 08/21/20 22 08/21/2022 rapid strep group A, throa t Unknown Analyte Normal = Negati ve Not Available [address] [place] [address], [phone], 08/21/2022 16:32:58 08/21/20 22 08/21/2022 rapid strep group A, throa t Unknown Analyte negati ve Not Available [address] [place] [address], [phone], 08/21/2022 16:32:58 Result Notes None recorded. Problems Name Problem SNOMED Code Status Onset Date Resolution Date Notes Provider Name and Address Organization Details Recorded Time Anxiety 56234187 Active KRISTI MACHUCA RA null, [place] - [facility] 2 16:39:40 Migraine 47689346 Active KRISTI CRUZ-MICKEY RA null, PA - [facility] 2 16:39:52 Depressive disorder 85696497 Active KRISTI CRUZ-MICKEY RA null, PA - [facility] 2 16:40:08 Eczema 03660681 Active KRISTI CRUZ-MICKEY RA null, PA - [...] Updated DateTime 2 160.02 cm 22.1 kg/m2 34062.0 5 g 5 16 /min 96 % [...] SNOMED-CT Code Diagnosis ICD10 Code Diagnosis Note [id number] [facility] [address] [place] [address] 10/19/2016 20:03:59 10/19/2016 20:29:15 [id number] [address] [place] [address] 07/22/2018 18:14:27 07/22/2018 19:06:45 [id number] [facility] [address] [facility] [place] [address] 06/12/2019 18:57:57 06/12/2019 19:32:43 [id number] [address] [place] [address] 11/02/2016 12:07:08 11/02/2016 12:46:34 [id number] ELIAS BARRAZA [address] [facility] [place] [address] 08/21/2022 15:12:44 08/21/2022 17:23:48 Acute pharyngitis [id number] J02.9 Health Concerns Section Related Observation LastModified by Organization Detai ls LastModified Time None Recorded Concern Status LastModified by Organization Details LastModified Time None Recorded Advance Directives Directive None Recorded Payers Encounter Date Sequence Insurance Name Policy Number Policy Pressley Covered Member ID Pressley Member ID Guarantor Name 10/19/2016 1 [employer] [id number] Vale Cain [id number] Vale Cain 11/02/2016 1 [employer] [id number] 3 Vale Cain [id number] Vale Cain 07/22/2018 1 [employer] [id number] 3 Vale Cain [id number] Vale Cain 06/12/2019 1 [employer] [id number] 3 Vale Cain [id number] Vale Cain 08/21/2022 1 [employer] [id number] 3 Vale Cain [id number] 2 Vale Cain Notes Date Note Type Note Provider Name and Address Organization Details Recorded Time 08/21/2022 text/html Headache UCRepor barry bypatient.Location:f acial; frontal Quality:not the worst headache ever Severity:mild Context:not related to trauma Associated Symptoms:no vomiting; no dizziness;nausea;sor e throat;cold symptomsSore throatReported bypatient.[facility] Severity:moderate Quality:burning Onset/Timin days Associated Symptoms:no cough; no sinus pain;sore throat;nausea Context:no sick contacts Modifying Factors:OTC medication ;exposed to Strep ELIAS BARRAZA [address] [place], [address], [place] - [facility] 08/21/2022 17:24:11 OBGyn Episode No OBEpisode recorded.
--- OUTSIDE RECORDS SUMMARY | 2025-01-16 16:19 | XMS_ITS | Encounter Summary ---
Author Organization [facility] Address [address] [place] [address] Phone Care Team Providers Care Court Administrator Name Role Phone Naima Abraham NP Primary Care Provider Alvino harrell Encounter Details Date Type Department Care Team (Late st Contact Info) Description 05/04/2017 Conversion Encounter [facility] - [address] [address] Social History Tobacco Use Types Packs/Day Years [...] on filedocumented in this encounter Care Teams Court Administrator Relationship Specialty Start Date End Date Naima Abraham NP PCP - General 04/28/17 02/22/23 documented as of this encounter
--- OUTSIDE RECORDS SUMMARY | 2025-01-16 16:19 | XMS_ITS | Clinical Summary ---
Author Organization [facility] Address [address] [place] [address] Phone Care Team Providers Care Stoker Installer Name Role Phone Unavailable Primary Care Provider [...]
== END 2025-01-16 14:32 | disposition home or self-care (01) ==
LOC: HO.HMCH 14:09
PROVIDERS: PCP Internal Medicine; Visit Provider Internal Medicine
DX: M25.551 Pain in right hip (principal); R14.0 Abdominal distension (gaseous); F41.1 Generalized anxiety disorder; F33.1 Major depressive disorder, recurrent, moderate

== ENCOUNTER → 2025-01-16 14:08 | Outpatient (BNVA) | payer OTHER, SELFPAY | PROVIDERS: PCP Internal Medicine; Visit Provider Internal Medicine | DX: Z13.89 Encounter for screening for other disorder (principal) ==

== ENCOUNTER 2025-01-27 16:12 | Outpatient (AMB) | payer OTHER, SELFPAY ==
--- OUTSIDE RECORDS SUMMARY | 2025-01-27 16:14 | XMS_ITS | Encounter Summary ---
Author Organization [facility] Address [address] [place] [address] Phone Care Team Providers Care Customer Manager Name Role Phone Naima Abraham NP Primary Care Provider Alvino harrell Encounter Details Date Type Department Care Team (Late st Contact Info) Description 05/04/2017 Conversion Encounter [facility] - [address] [address] Social History Tobacco Use Types Packs/Day Years [...] on filedocumented in this encounter Care Teams Customer Manager Relationship Specialty Start Date End Date Naima Abraham NP PCP - General 04/28/17 02/22/23 documented as of this encounter
--- OUTSIDE RECORDS SUMMARY | 2025-01-27 16:14 | XMS_ITS | Clinical Summary ---
Author Organization [facility] Address [address] [place] [address] Phone Care Team Providers Care Huc Ob Name Role Phone Unavailable Primary Care Provider [...]
--- OUTSIDE RECORDS SUMMARY | 2025-01-27 16:14 | XMS_ITS | Data Portability ---
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 Plan of Treatment Reminders Order Date Submit Date Provider Last Modified By Organization Details Last Modified Time Details Appointments None recorded. Lab rapid strep group A, throat 2021 [facility], [address] [place] [address], [phone], 17:20:14 culture, respiratory 2021 [place] [facility], [address] [place] [address], [address], 12:06:37 Referral None recorded. Procedures None recorded. Surgeries None recorded. Imaging None recorded. Medication Orders amoxicillin 500 mg capsule 2021 [facility]acy #[id number], [address] [place], [address], 17:20:16 Patient TargetsNo targets recorded. Patient Instructions Encounter Date Encounter Id Patient Instructions Last Modified By Organization Details Last Modified Time 08/21/2022 [id number] sore throat: car e instructions [email or web address] Not available 08/21/2022 17:20:14 Based on your [...] 6. Severe Headache Thank you for using [employer] today, please feel free to contact our office if you have any questions or concerns. [email or web address] Not available 08/21/2022 17:18:51 Reason for Referral None Reported. Results Created Date Observation Date Name Description Value Unit Range Abnormal Flag Note LastModifiedBy Organization Detail LastModifiedTime 08/21/20 22 08/24/2022 UPPER RESPI RATOR Y CULTU RE upper respiratory culture Final report Not Available [facility] ([facility]) [address] [facility], [place], [address], 08/24/2022 12:06:37 08/21/20 22 08/24/2022 UPPER RESPI RATOR Y CULTU RE result 1 Commen t Routi ne respi rator y bird Not Available [facility] ([facility]) [address] [facility], [place], [address], 08/24/2022 12:06:37 08/21/20 22 08/21/2022 rapid strep group A, throa t Unknown Analyte Normal = Negati ve Not Available [address] [place] [address], [phone], 08/21/2022 16:32:58 08/21/20 22 08/21/2022 rapid strep group A, throa t Unknown Analyte negati ve Not Available [address] [place] [address], [phone], 08/21/2022 16:32:58 Result Notes None recorded. Problems Name Problem SNOMED Code Status Onset Date Resolution Date Notes Provider Name and Address Organization Details Recorded Time Anxiety 66199583 Active KRISTI MACHUCA RA null, PA - [facility] 2 16:39:40 Migraine 61399978 Active KRISTI CRUZ-MICKEY RA null, PA - [facility] 2 16:39:52 Depressive disorder 25810426 Active KRISTI CRUZ-MICKEY RA null, PA - [facility] 2 16:40:08 Eczema 16239503 Active KRISTI CRUZ-MICKEY RA null, PA - [...] Updated DateTime 2 160.02 cm 22.1 kg/m2 77820.0 5 g 5 16 /min 96 % 96 % 77 /min 97.5 [degF] 125 mm[Hg] 81 mm[Hg] KRISTI MACHUCA RA PA - [facility] 2 16:44:34 Social History Question Answer Notes LastModified by Organizat ion Details LastModified Time Tobacco Smoking Status Never Smoker ELIAS Bansal - [facility] 08/21/2022 16:42:01 Have You Had Direct Contact, Or Contact During Intimacy, With Monkeypox Rash, Scabs, Or Body Fluids From A Person With Monkeypox? No Information not available 08/21/2022 Have You Recently Traveled Abroad? No Information not available 08/21/2022 Sex: Unknown Functional Status Question Answer Note LastModified by Organizat ion Details LastModified Time Do you use any illicit or recreational drugs? No Information not available 08/21/2022 Do you or have you ever used any other forms of tobacco or nicotine? No Information not available 08/21/2022 What is your level of alcohol consumption? Occasional Information not available 08/21/2022 Mental Status None recorded. Family History Relationship [...] SNOMED-CT Code Diagnosis ICD10 Code Diagnosis Note [id number] [facility] [address] [address] [facility] [place] [address] 10/19/2016 20:03:59 10/19/2016 20:29:15 [id number] [address] [address] [place] [address] 07/22/2018 18:14:27 07/22/2018 19:06:45 [id number] [facility] [facility] [facility] [place] [address] 06/12/2019 18:57:57 06/12/2019 19:32:43 [id number] [address] [place] [address] 11/02/2016 12:07:08 11/02/2016 12:46:34 [id number] ELIAS BARRAZA [address] [facility] [place] [address] 08/21/2022 15:12:44 08/21/2022 17:23:48 Acute pharyngitis [id number] J02.9 Health Concerns Section Related Observation LastModified by Organization Detai ls LastModified Time None Recorded Concern Status LastModified by Organization Details LastModified Time None Recorded Advance Directives Directive None Recorded Payers Insurance Date Sequence Insurance Name Policy Number Policy Pressley Covered Member ID Pressley Member ID Guarantor Name 08/24/2022 1 [facility] INDEMNITY [facility]AN - [facility] [id number] 3 Vale Cain [id number] Vale Cain Notes Date Note Type [...] to Strep ELIAS BARRAZA [address] [place], [address], [place] - [facility] 08/21/2022 17:24:11 OBGyn Episode No OBEpisode recorded.
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
== END 2025-01-27 16:22 | disposition home or self-care (01) ==
LOC: HO.HOP 16:12
PROVIDERS: PCP Internal Medicine; Visit Provider Clinical Nurse Specialist Psychiatric/Mental Health
DX: F33.1 Major depressive disorder, recurrent, moderate (principal); F41.1 Generalized anxiety disorder
CPT/HCPCS: 99214

== ENCOUNTER → 2025-01-27 16:12 | Outpatient (BNVA) | payer OTHER, SELFPAY | PROVIDERS: PCP Internal Medicine; Visit Provider Clinical Nurse Specialist Psychiatric/Mental Health | DX: F33.1 Major depressive disorder, recurrent, moderate (principal); F41.1 Generalized anxiety disorder; Z79.899 Other long term (current) drug therapy | CPT/HCPCS: 99212 ==

== ENCOUNTER 2025-02-05 08:31 | Outpatient (REF) | payer OTHER, SELFPAY ==
--- NOTE | ~2025-02-05 | MR_ITS ---
EXAMINATION: MR PELVIS WITHOUT THEN WITH IV CONTRAST HISTORY: N83.8 - Other noninflammatory disorders of ovary, fallopian tube and bro.... TECHNIQUE: Sagittal, axial, and coronal T2, axial T1 and fat-suppressed T1, and coronal fat-suppressed T2-weighted MR images of the pelvis were obtained. Subsequently, sagittal and axial fat suppressed T1-weighted images were obtained after the intravenous administration of 6 mm Gadavist. COMPARISON: Correlation is made with a pelvic ultrasound dated 11/08/2024. FINDINGS: The uterus measures approximately 7.4 x 4.0 x 5.3 cm and is unremarkable in appearance. No fibroids are identified. The junctional zone is not thickened. The cervix is unremarkable. The endometrium is normal in thickness. The right ovary measures approximately 1.7 x 1.0 x 1.2 cm and is unremarkable in appearance, demonstrating multiple small follicles. The left ovary measures 1.6 x 1.0 x 1.9 cm and is unremarkable in appearance, demonstrating multiple small follicles. No ovarian or adnexal mass is identified. The urinary bladder is partially collapsed. There is no pelvic lymphadenopathy or ascites. Generalized bones demonstrate normal marrow signal intensity. MR/MR pelvis wo/w con IMPRESSION: Unremarkable MRI of the pelvis without and with contrast. Electronically signed by: Carlos Chao MD 02/05/2025 09:52 AM EDT
[2025-02-05] MEDS: gadobutroL 7.5 ML VIAL IVPUSH (09:17)
== END 2025-02-05 08:32 | disposition home or self-care (01) ==
LOC: HO.MRI 08:31
PROVIDERS: PCP Internal Medicine; Visit Provider Obstetrics & Gynecology
DX: R93.5 Abnormal findings on diagnostic imaging of other abdominal regions, including retroperitoneum (principal); N83.8 Other noninflammatory disorders of ovary, fallopian tube and broad ligament
CPT/HCPCS: 72197; A9585

== ENCOUNTER → 2025-02-05 08:31 | Outpatient (BNV) | payer OTHER, SELFPAY | PROVIDERS: PCP Internal Medicine; Visit Provider Radiology Diagnostic Radiology | DX: N83.8 Other noninflammatory disorders of ovary, fallopian tube and broad ligament (principal) | CPT/HCPCS: 72197 ==

== ENCOUNTER 2025-02-18 15:45 | Outpatient (AMB) | payer OTHER, SELFPAY ==
--- NOTE | 2025-02-18 15:46 | A.OFFVIS_ITS ---
Intake Visit Reasons: MRI results Allergies sertraline Adverse Reaction (Intermediate, Verified 01/16/25 14:23) nausea, loss of appetite HPI Comments Details: The patient scheduled a telehealth visit for pelvic MRI follow-up. The patient had a pelvic ultrasound done in 11/12 showed the followin mm echogenic focus in the left ovary which could represent a calcification or fat within a dermoid. This could be further evaluated with CT or MRI if desired. Pelvic MRI done in 02/05/25 showed the following: FINDINGS: The uterus measures approximately 7.4 x 4.0 x 5.3 cm and is unremarkable in appearance. No fibroids are identified. The junctional zone is not thickened. The cervix is unremarkable. The endometrium is normal in thickness. The right ovary measures approximately 1.7 x 1.0 x 1.2 cm and is unremarkable in appearance, demonstrating multiple small follicles. The left ovary measures 1.6 x 1.0 x 1.9 cm and is unremarkable in appearance, demonstrating multiple small follicles. No ovarian or adnexal mass is identified. The urinary bladder is partially collapsed. There is no pelvic lymphadenopathy or ascites. Generalized bones demonstrate normal marrow signal intensity. [facility] Medical History Acute streptococcal pharyngitis Acute respiratory disease Mild major depression Cervical spondylosis Depression Lumbar pain Right hip pain Left hip pain Severe major depression without psychotic features Vaginal irritation Hypovitaminosis D Anemia Allergic sinusitis Chronic fatigue Anxiety Surgical History No pertinent past surgical history Family History Father Diabetes Hypertension CVD (cardiovascular disease) Stroke Mother Osteoporosis Arthritis 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/hazards: No Cognitive needs: No Hearing needs: No Vision needs: No Female Reproductive History Menstrual Age of Menarche: 12 Review of Systems Const All systems reviewed & are unremarkable except as noted in HPI and below Reports as per HPI and Reports no additional complaints GI Reports no additional complaints Reports no additional complaints Telehealth Telehealth Telehealth Platform: Telephone Location of provider rendering services: practice address Location of patient: address on file Patient Identification confirmed using: Name, : Yes Telehealth method: video Patient verbally consented to treatment: Yes Patient verbally consented to billing insurance company: Yes Patient informed of any privacy concerns related to visit: Yes Minutes spent on Phone/Video with Pt.: 4 Assessment & Plan Assessment & Plan (1) Calcification of ovary: Code(s): N83.8 - Other noninflammatory disorders of ovary, fallopian tube and broad ligament Category: Medical Plan: Discussed with the patient the finding on pelvic MRI showing normal bilateral ovaries with no evidence of pathology. All questions answered, the patient verbalized understanding I spent a total of 20 minutes reviewing the chart, talking to the patient via video and documenting in the medical record. Coding Level of Care Code Tele Est Pt Level 3 (65718) Diagnoses Calcification of ovary N83.8
== END 2025-02-18 15:57 | disposition home or self-care (01) ==
LOC: HO.HWS 15:45
PROVIDERS: PCP Internal Medicine; Visit Provider Obstetrics & Gynecology
DX: N83.8 Other noninflammatory disorders of ovary, fallopian tube and broad ligament (principal)
CPT/HCPCS: 99213

== ENCOUNTER 2025-03-03 13:55 | Outpatient (AMB) | payer OTHER, SELFPAY ==
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
== END 2025-03-03 14:20 | disposition home or self-care (01) ==
LOC: HO.HOP 13:55
PROVIDERS: PCP Internal Medicine; Visit Provider Clinical Nurse Specialist Psychiatric/Mental Health
DX: F41.1 Generalized anxiety disorder (principal); F33.1 Major depressive disorder, recurrent, moderate
CPT/HCPCS: 99214

== ENCOUNTER → 2025-03-03 13:55 | Outpatient (BNVA) | payer OTHER, SELFPAY | PROVIDERS: PCP Internal Medicine; Visit Provider Clinical Nurse Specialist Psychiatric/Mental Health | DX: F41.1 Generalized anxiety disorder (principal); F33.1 Major depressive disorder, recurrent, moderate | CPT/HCPCS: 99212 ==

== ENCOUNTER 2025-03-17 10:47 | Outpatient (AMB) | payer OTHER, SELFPAY ==
[2025-03-17 10:57] VITALS: BP 110/60; PULSE 78; BMI 23.6
--- NOTE | 2025-03-17 10:57 | A.OFFVIS_ITS ---
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 [employer]/ Sebastián/ Allergies sertraline Adverse Reaction (Intermediate, Verified 01/16/25 14:23) nausea, loss of appetite Medication List - Last Reconciled 03/17/25 by Benjamin Soto MD buspirone 10 mg PO BID cetirizine 10 mg PO DAILY PRN 90 days cholecalciferol (vitamin D3) 25 mcg PO DAILY 90 days clonazepam 1 mg PO BEDTIME PRN 30 days desogestrel-ethinyl estradiol 0.15-0.03 mg (Apri) 1 tab PO DAILY 3 months escitalopram oxalate (Lexapro) 5 mg PO BEDTIME fluticasone propionate 50 mcg/actuation (Flonase Allergy Relief) 1 spray intranasal DAILY 30 days hydroxyzine HCl 25 mg PO BEDTIME PRN 90 days methocarbamol 500 mg PO TID PRN HPI Comments Details: The patient is a 34-year-old female presenting with tachycardia and palpitations. She experienced episodes of elevated heart rate while resting, prompting a referral for further evaluation. The patient reports heart pounding after eating or changing positions, though these episodes have become less frequent. Medication adjustments, including anxiety and depression medications, may have contributed to symptom improvement. Her thyroid function was normal in October. [facility] Medical History Acute streptococcal pharyngitis Acute respiratory disease Mild major depression Cervical spondylosis Depression Lumbar pain Right hip pain Left hip pain Severe major depression without psychotic features Vaginal irritation Hypovitaminosis D Anemia Allergic sinusitis Chronic fatigue Anxiety Surgical History No pertinent past surgical history Family History Father Diabetes Hypertension CVD (cardiovascular disease) Stroke Mother Osteoporosis Arthritis 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/hazards: No Cognitive needs: No Hearing needs: No Vision needs: No Female Reproductive History Menstrual Age of Menarche: 12 Review of Systems Const Denies weakness ENT Denies dizziness Card Denies chest pain, Denies chest pain with activity, Denies syncope, Denies rapid heart rate, Denies pedal edema, Denies edema, Denies leg edema, Denies lightheadedness, Reports palpitations, Reports dyspnea, Denies dyspnea on exertion and Denies orthopnea Resp Denies cough, Reports dyspnea and Denies dyspnea on exertion GI Denies hematochezia and Denies change in stool character Musc Denies abnormal gait, Denies muscle cramps, Denies muscle weakness, Denies numbness, Denies radiating pain into limb and Denies tingling Neuro Denies abnormal gait, Denies dizziness, Denies syncope, Denies numbness, Denies tingling and Denies weakness Endo Reports palpitations Physical Exam Vital Signs: Last Vital Signs Pulse 78 03/17/25 10:57 BP 110/60 03/17/25 10:57 BMI result Body Mass Index 23.6 Const General: comfortable and no acute distress Orientation/consciousness: patient oriented x3 HEENT Other: Unremarkable Head: Yes normal to inspection Neck Neck: Yes normal visual inspection Chest Chest palpation & inspection: normal inspection of the chest Resp Auscultation: clear to auscultation bilaterally Cardio Palpation: normal PMI Heart sounds: S1 normal heart sound present, S2 normal heart sound present, no gallops, no murmurs and no rubs GI Palpation (GI): Soft to palpation Back/Spine/Pelvis Other: unremarkable Skin General skin exam: no rashes or lesions noted Neuro General: patient oriented x3 Extrem General: Yes normal to inspection Psych Mental Status: mental status grossly normal Assessment & Plan Assessment & Plan (1) Palpitations: Code(s): R00.2 - Palpitations Category: Medical (2) Sinus tachycardia: Code(s): R00.0 - Tachycardia, unspecified Category: Medical Plan In the last EKG, mild sinus tachycardia at 01:03/Min with nonspecific ST-T changes; normal ID and corrected QT. In the Holter monitor, underlying rhythm is sinus with an average rate of 93/Min. About 28% of the time, sinus tachycardia. No other arrhythmias. Overall, palpitations possibly from sinus tachycardia. Unclear if it is related to underlying anxiety/depression. Considering her young age, we will hold off on any medications like beta- blockers at this time. Mainly reassurance. Can get an echocardiogram to evaluate for any cardiomyopathy. Coding Level of Care Code New Pt Level 3 (94028) Diagnoses Palpitations R00.2 Sinus tachycardia R00.0
== END 2025-03-17 11:18 | disposition home or self-care (01) ==
LOC: HO.HCS 10:48
PROVIDERS: PCP Internal Medicine; Visit Provider Internal Medicine
DX: R00.2 Palpitations (principal); R00.0 Tachycardia, unspecified
CPT/HCPCS: 99213

== ENCOUNTER 2025-04-01 14:13 | Outpatient (AMB) | payer OTHER, SELFPAY ==
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
--- OUTSIDE RECORDS SUMMARY | 2025-04-01 15:29 | XMS_ITS | Clinical Summary ---
Author Organization [facility] Address [address] [place] [phone] Phone Care Team Providers Care Ribbon Lap Machine Tender Name Role Phone Unavailable Primary Care Provider [...] 03/28/2017 03/28/2007, 08/01/2002, 08/29/2001, Additional history exists COVID-19 Vaccine (2023- season) 2024 Influenza Vaccines (#1) 2025 HIB Vaccines Completed 06/05/1991 IPV Vaccines Completed [...]
--- OUTSIDE RECORDS SUMMARY | 2025-04-01 15:29 | XMS_ITS | Data Portability ---
Author Organization [facility] [address] Address [address] [place] [address] Care Team Providers Care Merchandise Complaint Adjuster Name Role Phone AMELIA SALINAS Primary Care Provider Assessment No assessment recorded. Plan of Treatment Reminders Order Date Submit Date Provider Last Modified By Organization Details Last Modified Time Details Appointments None recorded. Lab rapid strep group A, throat 2021 [id number][facility], [address] [place] [address], [id number], 17:20:14 culture, respiratory [address] [facility], [address] [place] [address], [place], [address], 12:06:37 Referral None recorded. Procedures None recorded. Surgeries None recorded. Imaging None recorded. Medication Orders amoxicillin 500 mg capsule 2021 [address] [id number], [address] [place], [address], 17:20:16 Patient TargetsNo targets recorded. Patient Instructions Encounter Date Encounter Id Patient Instructions Last Modified By Organization Details Last Modified Time 08/21/2022 [id number] sore throat: car e instructions [id number] Not available 08/21/2022 17:20:14 Based on your [...] 6. Severe Headache Thank you for using [facility] today, please feel free to contact our office if you have any questions or concerns. Not available 08/21/2022 17:18:51 Reason for Referral None Reported. Results Created Date Observation Date Name Description Value Unit Range Abnormal Flag Note LastModifiedBy Organization Detail LastModifiedTime 08/21/20 22 08/24/2022 UPPER RESPI RATOR Y CULTU RE upper respiratory culture Final report Not Available [facility] ([facility]) [address] [facility] [place], [place], [address], 08/24/2022 12:06:37 08/21/20 22 08/24/2022 UPPER RESPI RATOR Y CULTU RE result 1 Commen t Routi ne respi rator y bird Not Available [facility] ([facility]) [address] [facility] [place], [place], [address], 08/24/2022 12:06:37 08/21/20 22 08/21/2022 rapid strep group A, throa t Unknown Analyte Normal = Negati ve Not Available [address] [place] [address], [phone], 08/21/2022 16:32:58 08/21/20 22 08/21/2022 rapid strep group A, throa t Unknown Analyte negati ve Not Available [address] [place] [address], [phone], 08/21/2022 16:32:58 Result Notes None recorded. Problems Name Problem SNOMED Code Status Onset Date Resolution Date Notes Provider Name and Address Organization Details Recorded Time Anxiety 28939445 Active KRISTI CRUZ-RIVE RA null, [place] - [facility] 2 16:39:40 Migraine 70331172 Active KRISTI CRUZ-RIVE RA null, [place] - [facility] 2 16:39:52 Depressive disorder 11194706 Active KRISTI CRUZ-RIVE RA null, [place] - [facility] 2 16:40:08 Eczema 86481371 Active KRISTI CRUZ-RIVE RA null, [place] - [facility] 2 [...] height Body mass index (BMI) Body weight Respiratory rate Oxygen saturation Oxygen saturation in Arterial blood by Pulse oximetry Heart rate Body temperature Systolic And Diastolic Provider Name and Address Organization Details Last Updated DateTime 2 160.02 cm 22.1 kg/m2 97532.0 5 g 16 /min 96 % 96 % 77 /min 97.5 [degF] 125/81 mm[Hg] KRISTI GRIFFIN - [facility] 2 16:44:34 Social History Question Answer Notes LastModified by Organizat ion Details LastModified Time Tobacco Smoking Status Never Smoker ELIAS Bansal [facility] 08/21/2022 16:42:01 Have You Had [...] SNOMED-CT Code Diagnosis ICD10 Code Diagnosis Note [id number] [facility] [address] [place] [address] 10/19/2016 20:03:59 10/19/2016 20:29:15 [id number] [facility] [place] [address] 07/22/2018 18:14:27 07/22/2018 19:06:45 [id number] [facility] [address] [facility] [place] [address] 06/12/2019 18:57:57 06/12/2019 19:32:43 [id number] [facility] [address] 11/02/2016 12:07:08 11/02/2016 12:46:34 [id number] ELIAS BARRAZA [address] [facility] [place] [address] 08/21/2022 15:12:44 08/21/2022 17:23:48 Acute pharyngitis [id number] J02.9 Health Concerns Section Related Observation LastModified by Organization Detai ls LastModified Time None Recorded Concern Status LastModified by Organization Details LastModified Time None Recorded Advance Directives Directive None Recorded Payers Insurance Date Sequence Insurance Name Policy Number Policy Pressley Covered Member ID Pressley Member ID Guarantor Name 08/24/2022 1 [facility] [employer] [facility] [id number] Vale Cain [id number] Vale Acin Notes Date Note Type Note Provider Name [...] ;exposed to Strep ELIAS BARRAZA [facility] [place], [address], [place] - [facility] 08/21/2022 17:24:11 OBGyn Episode No OBEpisode recorded.
== END 2025-04-01 15:38 | disposition home or self-care (01) ==
LOC: HO.HOP 14:13
PROVIDERS: PCP Internal Medicine; Visit Provider Clinical Nurse Specialist Psychiatric/Mental Health
DX: F41.1 Generalized anxiety disorder (principal); F33.1 Major depressive disorder, recurrent, moderate
CPT/HCPCS: 99214

== ENCOUNTER → 2025-04-01 14:13 | Outpatient (BNVA) | payer OTHER, SELFPAY | PROVIDERS: PCP Internal Medicine; Visit Provider Clinical Nurse Specialist Psychiatric/Mental Health | DX: F41.1 Generalized anxiety disorder (principal); F33.1 Major depressive disorder, recurrent, moderate | CPT/HCPCS: 99212 ==

== ENCOUNTER 2025-04-07 14:09 | Outpatient (REF) | payer OTHER, SELFPAY | END 2025-04-07 14:10 | disposition home or self-care (01) | LOC: HO.LNP 14:09 | PROVIDERS: PCP Internal Medicine; Visit Provider Physician Assistant Medical | DX: R35.0 Frequency of micturition (principal); R30.9 Painful micturition, unspecified; Z13.89 Encounter for screening for other disorder | CPT/HCPCS: 81003; 87086 ==

== ENCOUNTER 2025-04-07 14:09 | Outpatient (AMB) | payer OTHER, SELFPAY ==
--- NOTE | 2025-04-07 14:54 | MHC.OFFWIV ---
Intake Vital Signs 04/07/25 14:55 Height 5 ft 3 in Weight 135 lb 4 oz BMI 24.0 BP 125/64 Blood Pressure Location Rt brachial Position Sitting Pulse 80 Pulse Source Pulse Oximeter Temp 98.1 F Temp Source Oral Pulse Oximetry (%) 99 Oxygen Delivery Method Room Air Intake Visit Reasons: EP ? UTI Patient Tobacco Use Status: Never used Tobacco Water Resource Engineering Specialist Required: No Is last menstrual period known: Yes Last menstrual period: 03/26/25 Post menopausal: No Patient : No Allergies sertraline Adverse Reaction (Intermediate, Verified 04/07/25 14:59) nausea, loss of appetite Do you need a note to return to daycare/school/sports/work: No HPI HPI Comments History of Present Illness Details History - The patient is a 34-year-old female presenting with urinary symptoms suggestive of a urinary tract infection. - She reports discomfort, burning sensation, and frequent urination with minimal output, starting two days ago. - The urine is slightly cloudy but without a noticeable odor. - No associated fever, chills, nausea, or vomiting are present. - The patient has a history of urinary tract infections and has increased water intake as a home remedy. - She also reports abdominal hardness and constipation, linked to ongoing stomach issues. - Her last menses was March 26. - She denies vaginal itch, discharge, or bleeding. Physical Exam General: Cooperative, healthy appearing, comfortable, no acute distress and well developed Cardiac: Normal S1 and S2. RRR, no M/R/G noted. Respiratory: Normal respiratory effort and able to speak in complete sentences. Clear to auscultation bilaterally. No w/r/r noted. Skin: No rashes or lesions noted. GI: Normal inspection. Normal BS noted. Soft, non-tender, non-distended. No TTP of all 4 quadrants. No guarding or rebound tenderness noted. Back: Negative CVA bilaterally. \ Patient was informed and verbally consented to the use of an ambient scribe for clinic note documentation during this visit. [facility] Medical History Acute streptococcal pharyngitis Acute respiratory disease Mild major depression Cervical spondylosis Depression Lumbar pain Right hip pain Left hip pain Severe major depression without psychotic features Vaginal irritation Hypovitaminosis D Anemia Allergic sinusitis Chronic fatigue Anxiety Surgical History No pertinent past surgical history Family History Father Diabetes Hypertension CVD (cardiovascular disease) Stroke Mother Osteoporosis Arthritis 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 occupational exposures/hazards: No Cognitive needs: No Hearing needs: No Vision needs: No Female Reproductive History Menstrual Age of Menarche: 12 Date of last menstrual period: 03/26/25 Review of Systems Const All systems reviewed & are unremarkable except as noted in HPI and below Physical Exam Vital Signs: Last Vital Signs Temp 98.1 F 04/07/25 14:55 Pulse 80 04/07/25 14:55 BP 125/64 04/07/25 14:55 Pulse Ox 99 04/07/25 14:55 Oxygen Delivery Method Room Air 04/07/25 14:55 BMI result Body Mass Index 24.0 Results AMB Urinalysis, Automated UA Leukoctes 0 Archie/uL Last Edit by Yohana Baca MA on 04/07/25 15:03 UA Nitrite Negative Last Edit by Yohana Baca MA on 04/07/25 15:03 UA Urobilinogen 1 mg/dL Last Edit by Yohana Baca MA on 04/07/25 15:03 UA Protein 15 mg/dL Last Edit by Yohana Baca MA on 04/07/25 15:03 UA pH 6.0 Last Edit by Yohana Baca MA on 04/07/25 15:03 UA Blood 0 Gordo/uL Last Edit by Yohana Baca MA on 04/07/25 15:03 UA Specific Holbrook 1.030 Last Edit by Yohana Baca MA on 04/07/25 15:03 UA Ketone Positive Last Edit by Yohana Baca MA on 04/07/25 15:03 UA Bilirubin 1 mg/dL Last Edit by Yohana Baca MA on 04/07/25 15:03 UA Glucose 0 mg/dL Last Edit by Yohana Baca MA on 04/07/25 15:03 Results Reviewed Results Reviewed: Laboratory Last Values Urine pH (Auto) 6.0 04/07/25 14:53 Specific Holbrook (Auto) 1.030 04/07/25 14:53 Urine Protein (Auto) 15 mg/dL 04/07/25 14:53 Glucose (UA)(Auto) 0 mg/dL 04/07/25 14:53 Urine Ketones (Auto) Positive 04/07/25 14:53 Urine Blood (Auto) 0 Gordo/uL 04/07/25 14:53 Urine Nitrite (Auto) Negative 04/07/25 14:53 Urine Bilirubin (Auto) 1 mg/dL 04/07/25 14:53 Urine Urobilinogen (Auto) 1 mg/dL 04/07/25 14:53 Leukocyte Esterase (Auto) 0 Archie/uL 04/07/25 14:53 Assessment & Plan Assessment & Plan (1) Pain with urination: Code(s): R30.9 - Painful micturition, unspecified Plan Most likely UTI vs stone UA in the office- +uro, +pro, +ket, 1+ cam plan - Start antibiotics while awaiting urine culture results. - Advise increased fluid intake, including water and cranberry juice. - Will order UC - tylenol or motrin as needed for pain - follow up with PCP - will call with the results Orders: Orders AMB Urinalysis Automated Today JACK Baron Z13.9 - Encounter for screening, unspecified Urine Culture Today Sarah Kenny PA-C N39.0 - Urinary tract infection, site not specified Medications: New cefuroxime axetil 500 mg PO BID 14 tabs 0RF 7 days Sarah Kenny PA-C Coding Level of Care Code Est Pt Level 4 (72669) Diagnoses Pain with urination R30.9
[2025-04-07 14:55] VITALS: BP 125/64; PULSE 80; TEMP 36.7; O2SAT 99; BMI 24.0
--- OUTSIDE RECORDS SUMMARY | 2025-04-07 15:01 | XMS_ITS | Clinical Summary ---
Author Organization [facility] Address [address] [place] [phone] Phone Care Team Providers Care Hardening Machine Operator Helper Name Role Phone Unavailable Primary Care Provider [...]
--- OUTSIDE RECORDS SUMMARY | 2025-04-07 15:01 | XMS_ITS | Data Portability ---
Author Organization [facility] [address] Address [address] [place] [address] Care Team Providers Care Spinning Lathe Operator Name Role Phone AMELIA SALINAS Primary Care Provider [phone] Assessment No assessment recorded. Plan of Treatment Reminders Order Date Submit Date Provider Last Modified By Organization Details Last Modified Time Details Appointments None recorded. Lab rapid strep group A, throat 2021 [email or web address] [id number][facility], [address] [place] [address], [phone], 17:20:14 culture, respiratory 2021 [place] [facility], [address] [place] [address], [place], [address], 12:06:37 Referral None recorded. Procedures None recorded. Surgeries None recorded. Imaging None recorded. Medication Orders amoxicillin 500 mg capsule 2021 [place] [id number], [address] [place], [address], 17:20:16 Patient TargetsNo targets recorded. Patient Instructions Encounter Date Encounter Id Patient Instructions Last Modified By Organization Details Last Modified Time 08/21/2022 [id number] sore throat: car e instructions Not available 08/21/2022 17:20:14 Based on your [...] 6. Severe Headache Thank you for using [facility] today, please feel free to contact our office if you have any questions or concerns. Not available 08/21/2022 17:18:51 Reason for Referral None Reported. Results Created Date Observation Date Name Description Value Unit Range Abnormal Flag Note LastModifiedBy Organization Detail LastModifiedTime 08/21/20 22 08/24/2022 UPPER RESPI RATOR Y CULTU RE upper respiratory culture Final report Not Available [facility] [address] [facility], [place], [address], 08/24/2022 12:06:37 08/21/20 22 08/24/2022 UPPER RESPI RATOR Y CULTU RE result 1 Commen t Routi ne respi rator y bird Not Available [facility] [address] [facility], [place], [address], 08/24/2022 12:06:37 08/21/20 22 08/21/2022 rapid strep group A, throa t Unknown Analyte Normal = Negati ve Not Available [address] [place] [address], [phone], 08/21/2022 16:32:58 08/21/20 22 08/21/2022 rapid strep group A, throa t Unknown Analyte negati ve Not Available [address] [place] [address], [phone], 08/21/2022 16:32:58 Result Notes None recorded. Problems Name Problem SNOMED Code Status Onset Date Resolution Date Notes Provider Name and Address Organization Details Recorded Time Anxiety 36134496 Active KRISTI CRUZ-RIVE RA null, [place] - [facility] 2 16:39:40 Migraine 68579408 Active KRISTI CRUZ-RIVE RA null, PA - [facility] 2 16:39:52 Depressive disorder 11067572 Active KRISTI CRUZ-RIVE RA null, PA - [facility] 2 16:40:08 Eczema 14288025 Active KRISTI CRUZ-RIVE RA null, PA - [...] Updated DateTime 2 160.02 cm 22.1 kg/m2 49714.0 5 g 16 /min 96 % 96 [...] SNOMED-CT Code Diagnosis ICD10 Code Diagnosis Note [id number] [facility] [address] [place] [address] 10/19/2016 20:03:59 10/19/2016 20:29:15 [id number] [facility] [place] [address] 07/22/2018 18:14:27 07/22/2018 19:06:45 [id number] [facility] [facility] [place] [address] 06/12/2019 18:57:57 06/12/2019 19:32:43 [id number] [address] [facility] [address] 11/02/2016 12:07:08 11/02/2016 12:46:34 [id number] ELIAS BARRAZA [address] [facility] [place] [address] 08/21/2022 15:12:44 08/21/2022 17:23:48 Acute pharyngitis [id number] J02.9 Health Concerns Section Related Observation LastModified by Organization Detai ls LastModified Time None Recorded Concern Status LastModified by Organization Details LastModified Time None Recorded Advance Directives Directive None Recorded Payers Insurance Date Sequence Insurance Name Policy Number Policy Pressley Covered Member ID Pressley Member ID Guarantor Name 08/24/2022 1 [facility] IN[facility]MN[facility] [id number] Vale Cain [id number] Vale Cain Notes Date Note Type [...] Factors:OTC medication ;exposed to Strep ELIAS BARRAZA [facility] [place], [id number], [place] - [facility] 08/21/2022 17:24:11 OBGyn Episode No OBEpisode recorded.
--- OUTSIDE RECORDS SUMMARY | 2025-04-07 15:01 | XMS_ITS ---
[facility] Name [facility] Unknown Care Team Organization Name Specialty Phone Email Start Date End Da te [facility] ([facility])
== END 2025-04-07 15:59 | disposition home or self-care (01) ==
PROVIDERS: PCP Internal Medicine; Visit Provider Physician Assistant Medical
DX: Z13.9 Encounter for screening, unspecified (principal); R30.9 Painful micturition, unspecified

== ENCOUNTER 2025-05-13 17:01 | Outpatient (AMB) | payer OTHER, SELFPAY ==
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
--- OUTSIDE RECORDS SUMMARY | 2025-05-13 17:03 | XMS_ITS | Encounter Summary ---
Author Organization [facility] Address [address] [place] [phone] Phone Care Team Providers Care Preformer Impregnated Fabrics Name Role Phone Naima Abraham NP Primary Care Provider Alvino harrell Encounter Details Date Type Department Care Team (Late st Contact Info) Description 05/04/2017 Conversion Encounter [facility] - [address] [address] Social History Tobacco Use Types Packs/Day Years [...] on filedocumented in this encounter Care Teams Preformer Impregnated Fabrics Relationship Specialty Start Date End Date Naima Abraham NP PCP - General 04/28/17 02/22/23 documented as of this encounter
--- OUTSIDE RECORDS SUMMARY | 2025-05-13 17:03 | XMS_ITS | Clinical Summary ---
Author Organization [facility] Address [address] [place] [phone] Phone Care Team Providers Care Museum Guide Name Role Phone Unavailable Primary Care Provider [...]
== END 2025-05-13 17:02 | disposition home or self-care (01) ==
LOC: HO.HOP 17:01
PROVIDERS: PCP Internal Medicine; Visit Provider Clinical Nurse Specialist Psychiatric/Mental Health
DX: F33.1 Major depressive disorder, recurrent, moderate (principal); F41.1 Generalized anxiety disorder
CPT/HCPCS: 99214

== ENCOUNTER → 2025-06-05 07:38 | Outpatient (REF) | payer OTHER, SELFPAY ==
--- NOTE | 2025-06-05 07:41 | CA_ITS ---
Transthoracic Echocardiogram Patient (Last, First, Middle): Vale Cain, Gender: F Date of : 1990 Age: 34 Procedure Date: 06/05/2025 Procedure Type: Transthoracic Echocardiogram Location: OP Height: 160. cm Weight: 58.97 kg BSA: 1.61 m2 Heart Rate: 81 bpm BP: 95 / 60 mmHg Technology Methodology Consultant: BASILIA/BREANNA Referring MD: Benjamin Soto MD Symptoms: R00.2 - Palpitations Study Quality: Adequate ECG Rhythm: Sinus Conclusions: - The left ventricular systolic function is normal. The calculated ejection fraction is 62% by biplane method. - The mitral valve appears myxomatous. There is trace mitral valve regurgitation. Findings Left Ventricle Normal left ventricular cavity size. There is normal left ventricular wall thickness. The left ventricular systolic function is normal. The calculated ejection fraction is 62% by biplane method. There is no evidence of regional wall motion abnormalities. Diastolic function is normal for age. Right Ventricle Normal right ventricular cavity size and systolic function. Atria Both atria are normal in size. Aortic Valve There is a normal trileaflet aortic valve. There is no aortic valve stenosis. There is no aortic valve regurgitation. Mitral Valve The mitral valve appears myxomatous. There is trace mitral valve regurgitation. There is no mitral valve stenosis. Pulmonic Valve The pulmonic valve is likely normal. Tricuspid Valve There is trace tricuspid valve regurgitation. There is no evidence of pulmonary hypertension. Great Vessels The asc aorta is normal in size. Venous The inferior vena cava is normal in size and collapses less than 50% with inspiration. Pericardium/Pleural There is no evidence of pericardial effusion. Prior Study Comparison No prior study available for comparison. Measurements 2D Linear Measurements IVSd: 0.64 0.6-0.9/0.6-1.0 cm LVIDd: 3.94 3.9-5.3/4.2-5.9 cm LVIDd Index: 2.45 2.4-3.2/2.2-3.1 cm/m2 LVIDs: 2.81 2.0-3.6 cm LVPWd: 0.85 0.7-1.1 cm LA Diam: 3.10 2.7-3.8/3.0-4.0 cm LAIDs Index: 1.93 1.5-2.3 cm/m2 LV Mass: 102.81 67-162/88-224 g LV Mass Index: 63.85 43-95/49-115 g/m2 LVOT Diam: 1.70 3.0+(-)1.3 cm 2D Systolic Function EF 4C: 65.00 >55% EF 2C: 63.20 >55% EF BiP: 61.80 >55% Mitral Valve MV Pk E: 0.95 MV PK A: 0.47 MV Decel Time: 191.00 E/A: 2.00 E'Lateral: 14.80 E'Medial: 11.90 E/E' Med: 8.00 E/E' Lat: 6.40 PHT: 56.00 MVA PHT: 3.93 Decel Edwards: 4.96 Aortic Valve AoV Pk Michael: 1.19 AoV Mn Michael: 0.84 AoV VTI: 0.24 AoV Pk Grad: 6.00 Aov Mn Grad: 3.00 PATIENCE Cont.VTI: 1.88 LVOT LVOT Pk Michael: 1.04 LVOT Mn Michael: 0.64 LVOT VTI: 0.20 LVOT Pk Grad: 4.00 LVOT Mn Grad: 2.00 LVOT Diam: 1.70 LVOT Area: 2.27 Diastolic Function MV Pk E: 0.95 MV Pk A: 0.47 E/A: 2.00 E'Medial: 11.90 E/E' Med: 8.00 E' Laterial: 14.80 E/E' Lat: 6.40 Right Ventricle TAPSE (mm): 27.30 TVS' Michael: 12.40 Tricuspid Valve TR Pk Michael: 1.83 TR Pk Grad: 13.00 Great Vessels Aorta Sinus of Valsalva: 2.60 2.0-3.5 cm Ao Asc: 2.30 2.1-3.4 cm Pulmonary Veins Pulm Vein S/D 1.60 Pulmonary Valve PV Pk Michael: 0.95 Peak PV Grad: 4.00 Updated in Other Vendor System with Status of Final Benjamin Soto MD electronically signed on 06/07/2025 11:42:43 AM with status of Final
--- OUTSIDE RECORDS SUMMARY | 2025-06-05 07:41 | XMS_ITS | Clinical Summary ---
Author Organization [facility] Address [address] [place] [address] Phone Care Team Providers Care Learning Services Coordinator Name Role Phone Unavailable Primary Care Provider [...] 08/29/2001, Additional history exists Influenza Vaccines (#1) 2025 COVID-19 Vaccine ( season) 2025 HIB Vaccines Completed 06/05/1991 IPV Vaccines [...]
--- OUTSIDE RECORDS SUMMARY | 2025-06-05 07:41 | XMS_ITS | Encounter Summary ---
Author Organization [facility] Address [address] [place] [phone] Phone Care Team Providers Care Provider Network Mgr Name Role Phone Naima Abraham NP Primary Care Provider Alvino harrell Encounter Details Date Type Department Care Team (Late st Contact Info) Description 05/04/2017 Conversion Encounter [facility] - [address] [address] Social History Tobacco Use Types Packs/Day Years [...] on filedocumented in this encounter Care Teams Provider Network Mgr Relationship Specialty Start Date End Date Naima Abraham NP PCP - General 04/28/17 02/22/23 documented as of this encounter
== END ==
LOC: HO.CARD 07:38
PROVIDERS: PCP Internal Medicine; Visit Provider Internal Medicine
DX: R00.2 Palpitations (principal)
CPT/HCPCS: 93306

== ENCOUNTER → 2025-06-05 07:41 | Outpatient (BNV) | payer OTHER, SELFPAY | PROVIDERS: PCP Internal Medicine; Visit Provider Internal Medicine | DX: I34.1 Nonrheumatic mitral (valve) prolapse (principal) | CPT/HCPCS: 93306 ==

== ENCOUNTER 2025-07-22 09:37 | Outpatient (REF) | payer OTHER, SELFPAY ==
[2025-07-22 10:34] LABS: MANUAL DIFF FLAG NO
[2025-07-22 10:47] LABS: Hematocrit 43.5 % (37.0-47.0); Hemoglobin 14.2 g/dl (12.0-16.0); Imm Gran Abs Auto 0.03 X10*3/uL (0.00-0.03); Imm Gran Pct Auto 0.4 % (0.0-0.4); Lymphocytes Absolute Auto 1.8 X10*3/uL (1.2-4.9); Mean Corpuscular HGB Conc 32.6 g/dl (31.0-35.0); Mean Corpuscular Hemoglobin 28.8 pg (27.0-33.0); Mean Corpuscular Volume 88.2 fL (80.0-98.0); NRBC Abs Auto 0.000 X10*3/uL (0.0-0.012); NRBC Pct Auto 0.0 /100WBC (0.0-0.2); Platelet Count 326 X10*3/uL (160-400); Red Blood Count 4.93 X10*6/uL (4.20-5.50); White Blood Count 7.8 X10*3/uL (4.8-10.8)
[2025-07-22 11:23] LABS: Alanine Aminotransferase 17 U/L (0-31); Albumin Level 4.2 g/dL (3.5-5.0); Alkaline Phosphatase 69 U/L (39-117); Anion Gap 9 (12-20); Aspartate Amino Transferase 23 U/L (5-31); Blood Urea Nitrogen 13 mg/dL (9-16); Calcium 9.2 mg/dL (8.4-10.2); Carbon Dioxide 28 mmol/L (22-29); Chloride 108 mmol/L (96-108); Estimated Glomerular Filt Rate > 60; Magnesium 1.9 mg/dL (1.6-2.6); Potassium 4.9 mmol/L (3.3-5.1); Sodium 140 mmol/L (135-145); Total Protein 7.1 g/dL (6.5-8.0)
[2025-07-22 11:58] LABS: Folate 12.9 ng/mL (> or = 4.0); Vitamin B12 236 pg/mL (200-900)
--- OUTSIDE RECORDS SUMMARY | 2025-07-22 12:04 | XMS_ITS | Data Portability ---
Author Organization [facility] Address [address] [place] [address] Care Team Providers Care [address] Scan Technician Name Role Phone AMELIA SALINAS Primary Care Provider [phone] Assessment No assessment recorded. Plan of Treatment Reminders Order Date Submit Date Provider Last Modified By Organization Details Last Modified Time Details Appointments None recorded. Lab rapid strep group A, throat 2021 [email or web address] [id number], [address] [place] [address], [phone], 17:20:14 culture, respiratory 2021 GADSDEN [facility], [address] [place] [address], [place], [address], 12:06:37 Referral None recorded. Procedures None recorded. Surgeries None recorded. Imaging None recorded. Medication Orders amoxicillin 500 mg capsule 2021 [address] [id number], [address] [place], [address], 17:20:16 Patient TargetsNo targets recorded. Patient Instructions Encounter Date Encounter Id Patient Instructions Last Modified By Organization Details Last Modified Time 08/21/2022 [id number] sore throat: car e instructions [email or web address] Not available 08/21/2022 17:20:14 Based on your [...] 6. Severe Headache Thank you for using [employer] [facility] today, please feel free to contact our office if you have any questions or concerns. [email or web address] Not available 08/21/2022 17:18:51 Reason for Referral None Reported. Results Created Date Observation Date Name Description Value Unit Range Abnormal Flag Note LastModifiedBy Organization Detail LastModifiedTime 08/21/20 22 08/24/2022 UPPER RESPI RATOR Y CULTU RE upper respiratory culture Final report Not Available [facility] ([facility]) [address] [facility], [place], [address], 08/24/2022 12:06:37 08/21/20 22 08/24/2022 UPPER RESPI RATOR Y CULTU RE result 1 Commen t Routi ne respi rator y bird Not Available [facility] ([facility]) [address] [facility], [place], [address], 08/24/2022 12:06:37 08/21/20 22 08/21/2022 rapid strep group A, throa t Unknown Analyte Normal = Negati ve Not Available [address] [place] [address], [phone], 08/21/2022 16:32:58 08/21/20 22 08/21/2022 rapid strep group A, throa t Unknown Analyte negati ve Not Available [address] [place] [address], [phone], 08/21/2022 16:32:58 Result Notes None recorded. Problems Name Problem SNOMED Code Status Onset Date Resolution Date Notes Provider Name and Address Organization Details Recorded Time Anxiety 75964873 Active KRISTI CRUZ-RIVE RA null, [place] - [facility] 16:39:40 Migraine 22459326 Active KRISTI CRUZ-RIVE RA null, [place] - [facility] 16:39:52 Depressive disorder 94491294 Active KRISTI CRUZ-RIVE RA null, [place] - [facility] 16:40:08 Eczema 44927713 Active KRISTI CRUZ-RIVE RA null, PA - [...] Updated DateTime 2 160.02 cm 22.1 kg/m2 36217.0 5 g 5 16 /min 96 % 96 % 77 /min 97.5 [degF] 125/81 mm[Hg] KRISTI MACHUCA RA [facility] - [facility] [...] Not available 12/2021 16:41:16 Maternal Uncle Malignant neoplasm of colon Not available 12/2021 16:41:44 Medical History No medical history recorded. Gynecological History Statement/Question Response Current Control Method None Date of LMP 08/10/2022 LMP Definite Obstetrics History GPAL:G 0 P 0 0 0 0 Past Encounters Encounter ID Performer Location Encounter Start Date Encounter Closed Date Diagnosis/Indication Diagnosis SNOMED-CT Code Diagnosis ICD10 Code Diagnosis IMO Codes Diagnosis Note [id number] [facility] [place] [address] 10/19/2016 20:03:59 10/19/2016 20:29:15 [id number] [facility] [facility] [address] [place] [address] 07/22/2018 18:14:27 07/22/2018 19:06:45 [id number] [facility] [facility] [place] [address] 06/12/2019 18:57:57 06/12/2019 19:32:43 [id number] [place] [address] 11/02/2016 12:07:08 11/02/2016 12:46:34 [id number] [facility] [address] [facility] [place] [address] 08/21/2022 15:12:44 08/21/2022 17:23:48 Acute pharyngitis [id number] J02.9 Health Concerns Section Related Observation LastModified by Organization Detai ls LastModified Time None Recorded Concern Status LastModified by Organization Details LastModified Time None Recorded Advance Directives Directive None Recorded Payers Insurance Date Sequence Insurance Name Policy Number Policy Pressley Covered Member ID Pressley Member ID Guarantor Name 08/24/2022 1 [facility] IN[facility]MNITY PLAN (INDEMNITY) [id number] Vale Cain [id number] Vale Cain Notes Date Note Type Note Provider Name and Address Organization Details Recorded Time 08/21/2022 text/html Headache UCRepor barry by PatientHPIFor associated symptoms, patient reportsnausea,sore throat, andcold symptomsbut reportsno vomitingandno dizziness. For location, patient reportsfacialandfrontal . For quality, patient reportsnot the worst headache ever. For severity, patient reportsmild. For context, patient reportsnot related to trauma. Sore throatReported by PatientSore ThroatFor associated symptoms, patient reportssore throatandnauseabut reportsno coughandno sinus pain. For modifying factors, patient reportsexposed to strep __but reportsotc medication __. For location, patient reportsthroat. For severity, patient reportsmoderate. For quality, patient reportsburning. For onset/timing, patient reports2 days. For context, patient reportsno sick contacts.ROS as noted in the HPI ELIAS BARRAZA [address] [place], [address], [place] - [facility] 08/21/2022 17:24:11 OBGyn Episode No OBEpisode recorded.
== END 2025-07-22 09:38 | disposition home or self-care (01) ==
LOC: HO.LAB 09:37
PROVIDERS: PCP Internal Medicine; Visit Provider Clinical Nurse Specialist Psychiatric/Mental Health
DX: F33.1 Major depressive disorder, recurrent, moderate (principal); F41.1 Generalized anxiety disorder; E55.9 Vitamin D deficiency, unspecified; D50.0 Iron deficiency anemia secondary to blood loss (chronic); Z13.1 Encounter for screening for diabetes mellitus
CPT/HCPCS: 36415; 80053; 82306; 82607; 82746; 83036; 83735; 84207; 84425; 84443; 84630; 85025; 99212

== ENCOUNTER 2025-07-22 09:37 | Outpatient (AMB) | payer OTHER, SELFPAY ==
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
--- OUTSIDE RECORDS SUMMARY | 2025-07-22 10:50 | XMS_ITS | Encounter Summary ---
Author Organization [facility] Address [address] [place] [id number] Phone Care Team Providers Care Residency Director Name Role Phone Naima Abraham NP Primary Care Provider Alvino harrell Encounter Details Date Type Department Care Team (Late st Contact Info) Description 05/04/2017 Conversion Encounter [facility] - [address] [address] Social History Tobacco Use Types Packs/Day Years [...] on filedocumented in this encounter Care Teams Residency Director Relationship Specialty Start Date End Date Naima Abraham NP PCP - General 04/28/17 02/22/23 documented as of this encounter
--- OUTSIDE RECORDS SUMMARY | 2025-07-22 10:50 | XMS_ITS | Clinical Summary ---
Author Organization [facility] Address [address] [place] [id number] Phone Care Team Providers Care Procurement Professional Logistics Name Role Phone Unavailable Primary Care Provider [...]
== END 2025-07-22 11:50 | disposition home or self-care (01) ==
LOC: HO.HOP 09:37
PROVIDERS: PCP Internal Medicine; Visit Provider Clinical Nurse Specialist Psychiatric/Mental Health
DX: F41.1 Generalized anxiety disorder (principal); F33.1 Major depressive disorder, recurrent, moderate; D50.0 Iron deficiency anemia secondary to blood loss (chronic); L65.9 Nonscarring hair loss, unspecified; R53.82 Chronic fatigue, unspecified; E55.9 Vitamin D deficiency, unspecified
CPT/HCPCS: 99215

== ENCOUNTER 2025-09-02 16:18 | Outpatient (AMB) | payer OTHER, SELFPAY ==
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
--- OUTSIDE RECORDS SUMMARY | 2025-09-02 20:11 | XMS_ITS | Data Portability ---
Author Organization [facility], [address] Address [address] [place] [address] Care Team Providers Care Market Development Executive Name Role Phone AMELIA SALINAS Primary Care Provider Assessment No assessment recorded. Plan of Treatment Reminders Order Date Submit Date Provider Last Modified By Organization Details Last Modified Time Details Appointments None recorded. Lab rapid strep group A, throat 2021 [id number][facility], [address] [place] [address], [id number], 17:20:14 culture, respiratory 2021 [facility], [address] [place] [address], [place], [address], 12:06:37 Referral None recorded. Procedures None recorded. Surgeries None recorded. Imaging None recorded. Medication Orders amoxicillin 500 mg capsule 2021 [id number], [address] [place], [address], 17:20:16 Patient TargetsNo targets recorded. Patient Instructions Encounter Date Encounter Id Patient Instructions Last Modified By Organization Details Last Modified Time 08/21/2022 [id number] sore throat: car e instructions [email or web address] Not available 08/21/2022 17:20:14 Based on your [...] 6. Severe Headache Thank you for using [facility] today, please feel free to contact our office if you have any questions or concerns. [email or web address] Not available 08/21/2022 17:18:51 Reason for Referral None Reported. Results Created Date Observation Date Name Description Value Unit Range Abnormal Flag Note LastModifiedBy Organization Detail LastModifiedTime 08/21/20 22 08/24/2022 UPPER RESPI RATOR Y CULTU RE upper respiratory culture Final report Not Available [facility] ([facility]) [address] [facility], [place], [address], 08/24/2022 12:06:37 08/21/20 22 08/24/2022 UPPER RESPI RATOR Y CULTU RE result 1 Commen t Routi ne respi rator y bird Not Available [facility] ([facility]) [address] [facility], [place], [address], 08/24/2022 12:06:37 08/21/20 22 08/21/2022 rapid strep group A, throa t Unknown Analyte Normal = Negati ve Not Available [address] [place] [address], [phone], 08/21/2022 16:32:58 08/21/20 22 08/21/2022 rapid strep group A, throa t Unknown Analyte negati ve Not Available [address] [place] [address], [phone], 08/21/2022 16:32:58 Result Notes None recorded. Problems Name Problem SNOMED Code Status Onset Date Resolution Date Notes Provider Name and Address Organization Details Recorded Time Anxiety 96018521 Active KRISTI CRUZ-RIVE RA null, [place] - [facility] 2 16:39:40 Migraine 64957384 Active KRISTI CRUZ-RIVE RA null, [place] - [facility] 2 16:39:52 Depressive disorder 36404914 Active KRISTI CRUZ-RIVE RA null, [place] - [facility] 2 16:40:08 Eczema 83670218 Active KRISTI CRUZ-RIVE RA null, PA - [...] [Score] - Reported Respiratory rate Oxygen saturation Heart rate Body temperature Systolic And Diastolic Provider Name and Address Organization Details Last Updated DateTime 2 160.02 cm 22.1 kg/m2 28253.0 5 g 5 16 /min 96 % 77 /min 97.5 [degF] 125/81 mm[Hg] KRISTI Lawson [facility] 2 16:44:34 Social History Question Answer Notes LastModified by Organizat ion Details LastModified Time Tobacco Smoking Status Never Smoker KRISTI simon, ELIAS Lawson [facility] 08/21/2022 16:42:01 Have You Had [...] ICD10 Code Diagnosis IMO Codes Diagnosis Note [id number] [facility] [place] [address] 10/19/2016 20:03:59 10/19/2016 20:29:15 [id number] [facility] [facility] [place] [address] 07/22/2018 18:14:27 07/22/2018 19:06:45 [id number] [facility] [facility] [facility] [address] 06/12/2019 18:57:57 06/12/2019 19:32:43 [id number] [address] [place] [address] 11/02/2016 12:07:08 11/02/2016 12:46:34 [id number] ELIAS BARRAZA [address] [facility] [address] 08/21/2022 15:12:44 08/21/2022 17:23:48 Acute pharyngitis [id number] J02.9 Health Concerns Section Related Observation LastModified by Organization Detai ls LastModified Time None Recorded Concern Status LastModified by Organization Details LastModified Time None Recorded Advance Directives Directive None Recorded Payers Insurance Date Sequence Insurance Name Policy Number Policy Pressley Covered Member ID Pressley Member ID Guarantor Name 08/24/2022 1 [id number] (INDEMNITY) [id number] Vale Cain [id number] Vale Cain Notes Date Note Type Note [...] ELIAS BARRAZA [address] [place], [address], [place] - [facility] 08/21/2022 17:24:11 OBGyn Episode No OBEpisode recorded.
--- OUTSIDE RECORDS SUMMARY | 2025-09-02 20:11 | XMS_ITS | Clinical Summary ---
Author Organization [facility] Address [address] [place] [phone] Phone Care Team Providers Care Helminthologist Name Role Phone Unavailable Primary Care Provider [...]
--- OUTSIDE RECORDS SUMMARY | 2025-09-02 20:11 | XMS_ITS | Encounter Summary ---
Author Organization [facility] Address [address] [place] [phone] Phone Care Team Providers Care Parts Facilitator Name Role Phone Naima Abraham NP Primary Care Provider Alvino harrell Encounter Details Date Type Department Care Team (Late st Contact Info) Description 05/04/2017 Conversion Encounter [facility] - [address] [address] Social History Tobacco Use Types Packs/Day Years [...] on filedocumented in this encounter Care Teams Parts Facilitator Relationship Specialty Start Date End Date Naima Abraham NP PCP - General 04/28/17 02/22/23 documented as of this encounter
== END 2025-09-02 16:21 | disposition home or self-care (01) ==
LOC: HO.HOP 16:18
PROVIDERS: PCP Internal Medicine; Visit Provider Clinical Nurse Specialist Psychiatric/Mental Health
DX: F41.1 Generalized anxiety disorder (principal); F33.1 Major depressive disorder, recurrent, moderate
CPT/HCPCS: 99214

== ENCOUNTER → 2025-09-02 16:18 | Outpatient (BNVA) | payer OTHER, SELFPAY | PROVIDERS: PCP Internal Medicine; Visit Provider Clinical Nurse Specialist Psychiatric/Mental Health | DX: F41.1 Generalized anxiety disorder (principal); F33.1 Major depressive disorder, recurrent, moderate; Z79.899 Other long term (current) drug therapy | CPT/HCPCS: 99212 ==